=== PATIENT | male | born 1950 | race Caucasian/White ===

== ENCOUNTER → 2023-11-09 11:44 | Outpatient (REF) | payer BC, SELFPAY ==
[2023-11-09 13:06] LABS: % Basophils 0.7 % (0-2); % Eosinophils 1.2 % (0-6); % Immature Granulocytes 0.7 % (0-0.5); % Lymphocytes 15.1 % (20.5-51.1); % Monocytes 9.7 % (1.7-9.3); % Neutrophils 72.6 % (42.2-75.2); Absolute Basophils 0.1 10^3/uL (0-0.2); Absolute Eosinophils 0.1 10^3/uL (0-0.7); Absolute Immature Granulocytes 0.1 10^3/uL (0-0.05); Absolute Lymphocytes 1.1 10^3/uL (1.2-3.4); Absolute Monocytes 0.7 10^3/uL (0.1-0.6); Absolute Neutrophils 5.5 10^3/uL (1.4-6.5); Hematocrit 42.8 % (39.0-52.0); Hemoglobin 14.6 g/dL (13.0-18.0); Mean Corp Hgb Conc. 34.1 g/dL (33.0-37.0); Mean Corpuscular Hgb 31.3 pg (27.0-31.0); Mean Corpuscular Volume 91.8 fL (80.0-94.0); Mean Platelet Volume 9.6 fL (7.4-10.4); Nucleated Red Blood Cells % 0 % (-); Platelet Count 270 10^3/uL (130-400); Red Blood Cell Count 4.66 10^6/uL (4.70-6.10); Red Cell Dist. Width 14.7 % (11.5-14.5); White Blood Cell Count 7.5 10^3/uL (4.8-10.8)
[2023-11-09 13:28] LABS: NT-proBNP 3920 pg/ml
[2023-11-09 13:51] LABS: ALT (SGPT) 33 U/L (0-50); AST (SGOT) 26 U/L (17-59); Albumin 3.7 g/dl (3.5-5.0); Alkaline Phosphatase 75 U/L (38-126); Blood Urea Nitrogen 28 mg/dl (9-20); Calcium 8.8 mg/dl (8.4-10.2); Carbon Dioxide 33 mmol/L (22-30); Chloride 99 mmol/L (98-107); Glucose 93 mg/dl (70-99); Potassium 3.8 mmol/L (3.5-5.1); Sodium 139 mmol/L (135-145); Total Bilirubin 1.4 mg/dl (0.2-1.3); Total Protein 6.4 g/dl (6.3-8.2); eGFR 58.37
[2023-11-09 14:02] LABS: Vitamin D, 25-OH*** 27.8 ng/mL (30-80)
[2023-11-09 14:16] LABS: TSH 2.79 uIU/ml (0.47-4.68)
== END ==
LOC: REG 11:44
PROVIDERS: ATTENDING PHYSICIAN Nurse Practitioner Family; FAMILY PHYSICIAN Internal Medicine Geriatric Medicine
DX: R05.1 Acute cough (principal); R53.83 Other fatigue; R09.89 Other specified symptoms and signs involving the circulatory and respiratory systems; I48.0 Paroxysmal atrial fibrillation; I42.8 Other cardiomyopathies; Z98.890 Other specified postprocedural states; I10 Essential (primary) hypertension; Z87.891 Personal history of nicotine dependence; Z68.32 Body mass index [BMI] 32.0-32.9, adult; Z13.89 Encounter for screening for other disorder; F33.9 Major depressive disorder, recurrent, unspecified; Z86.73 Personal history of transient ischemic attack (TIA), and cerebral infarction without residual deficits; R97.20 Elevated prostate specific antigen [PSA]; I95.2 Hypotension due to drugs; B49 Unspecified mycosis; R94.31 Abnormal electrocardiogram [ECG] [EKG]; Z91.81 History of falling; R26.9 Unspecified abnormalities of gait and mobility; R00.0 Tachycardia, unspecified
CPT/HCPCS: 36415; 71046; 80053; 82306; 83880; 84443; 85025

== ENCOUNTER 2024-02-06 18:19 | Outpatient (RCR) | payer BC, SELFPAY | END 2024-02-06 23:59 | disposition home or self-care (01) | LOC: CRHB 18:19 | PROVIDERS: ATTENDING PHYSICIAN Internal Medicine Cardiovascular Disease; FAMILY PHYSICIAN Internal Medicine Geriatric Medicine | DX: I50.20 Unspecified systolic (congestive) heart failure (principal) | CPT/HCPCS: 93798 ==

== ENCOUNTER 2024-04-13 06:46 | Outpatient (RCR) | payer BC, SELFPAY | END 2024-04-13 23:59 | disposition home or self-care (01) | LOC: CRHB 06:46 | PROVIDERS: ATTENDING PHYSICIAN Internal Medicine Cardiovascular Disease; FAMILY PHYSICIAN Internal Medicine Geriatric Medicine | DX: I50.22 Chronic systolic (congestive) heart failure (principal) | CPT/HCPCS: 93798 ==

== ENCOUNTER 2024-04-25 11:11 | Inpatient (IN) | payer BC, MEDICARE, SELFPAY ==
[2024-04-24] VITALS (8 sets, daily range): BP systolic 125–137; BP diastolic 80–102; BMI 31.7
--- NOTE | 2024-04-24 21:14 | ED.CVA ---
History of Present Illness
General
Chief Complaint: CVA/TIA Symptoms
Source: patient and spouse
Time Seen by Provider: 04/24/24 21:07
Nursing documentation reviewed up to this point in time: agreed with
Onset of Stroke Symptoms
Onset of symptoms known: Yes
Date of onset of symptoms: 04/24/24
Time of onset of symptoms: 20:45
Time pt last seen normal is known: Yes
Date last time pt seen normal: 04/24/24
Time last time pt seen normal: 20:30
History of Present Illness
History of Present Illness:
74 yo male present to ED due to slurred speech, left facial droop 15 minutes [place] [employer]. CVA alert called by histology tech.
Past History
Past History
ED Past Medical History: Arrthythmia (afib), Cancer (thyroid), HTN, Valvular disease (MVR), Psychiatric (anxiey) and Other (TIA, OA, kidney stones)
ED Past Surgical History: Cardiac (Cardiac ablation)
Social History
Tobacco: Non-smoker
Alcohol: None
Drug: None
Personal:
Living: with family
Employment: Employed
Family History
Family History: Other (Noncontributory)
Phy Exam
Physical Exam
Physical Exam:
Physical Exam
General: no apparent distress, not acutely ill
Neck: supple. no meningeal signs. normal posterior pharynx
Heart: s1/s2 regular rate and rhythm, no murmur. equal radial
pulses.
HEENT: Pupils equal round reactive to light, EOMI
Lungs: no acute respiratory distress. clear bilaterally
Abdomen: normal bowel sounds. not tender. no CVAT
Neuro: alert and oriented. no focal neurological deficits cranial nerves II through XII intact, mild dysarthria
Skin: no rash
Psychiatric: well kept. interactive and cooperative
Extremities: no edema. no calf tenderness. negative homans. good distal pulses
Scores
NIH Stroke Score
Level of Consciousness: 0 - Alert
LOC Questions: 0-Answers both correctly
LOC Commands: 0-Performs both correctly
Best Horizontal Gaze: 0-Normal
Visual Booth: 0=Normal, no visual loss
Facial Palsy: 0=Normal, symmetrical
Motor - Right Arm: 0=No drift 10 seconds
Motor - Left Arm: 0=No drift 10 seconds
Motor - Right Le-No drift 5 seconds
Motor - Left Le-No drift 5 seconds
Limb Ataxia: 0-Absent
Sensation: 0-Normal
Best Language: 0-No aphasia
Dysarthria: 1-Mild slurring
Extinction and Inattention: 0-No abnormality
Total Score:: 1
Course
Orders/Labs/Results
Orders:
Orders
04/24/24 21:08
Electrocardiogram (*1) Urgent
Reason for Study: Other
Other Reason for Exam: Possible Stroke
Bedside Glucose- Treatment ONCE
Cardiac Monitoring- Treatment ONCE
EKG- Treatment ONCE
IV Insert/Care/Rem.- Treatment PRN
Vital Signs As Directed
Frequency: Other
Weight As Directed
Frequency: Once
Comment: ZERO STRETCHER SCALE FOR ACCURATE WEIGHT
O2 Therapy [RESP] Urgent
Titrate/Wean O2 to maintain O2 sat greater than (%): 93
Special Instructions: MAINTAIN CONTINUOUS O2 SATS > OR = 93%
04/24/24 21:09
CT Head W/o Cont STROKE ALERT Stat
Reason For Exam: cva symptoms
04/24/24 21:10
Complete Blood Count/With Diff Urgent
Comprehensive Metabolic Panel Urgent
PTT Urgent
Prothrombin Time Urgent
Troponin I Urgent
04/24/24 21:14
CT Head/Neck Ang STROKE ALERT Urgent
Comment:
Reason For Exam: slurred speech, left facial droop
04/24/24 21:55
Electrocardiogram (*1) Urgent
04/24/24 22:23
Admit/Transfer Patient As Directed
Co-Sign Provider:
Level of Care: Observation services
Assign to:: Telemetry
Physician / Group: bryon
Diagnosis: tia/cva
Reason for Telemetry: CVA/TIA
Date to Stop Telemetry: 04/27/24
Time to Stop Telemetry: 11:00
Code Status As Directed
Resuscitation Status: Full Code
PRN Pain Medication Management As Directed
May give lesser potent ordered pain med per pt: Yes
preference::
Protocol:: Medication orders for pain may be administered in a
manner that supports deferring to patient preference
when the pt is:
- Requesting an ordered lesser potent pain medication.
Least to most potent pain medications are defined
as: acetaminophen < NSAID < tramadol < opioids
(morphine, oxycodone, hydromorphone).
- Requesting a lesser dose of the same medication IF
ORDERED.
- Requesting a less intrusive route of administration
if both routes are prescribed by the provider (PO <
IV).
04/24/24 23:00
Flush (0.9% Sodium Chloride) [Flush (Nss)] See Dose Instructions IV PER PROTOCOL
04/25/24 00:00
NEUROLOGY CONSULT Routine
Consulting Provider: Portillo Delatorre
Was physician already notified: Yes
VTE Contraindication Routine
VTE Mechanical Device Contraindication: Medical Contraindication
Pharmocologic Contraindication: Medical Contraindication
Activity As Directed
Activity Level: As Tolerated
NIH Stroke Scale As Directed
Directions: Per protocol
Comment: every shift and with any change in condition or mental status
Neurological Checks As Directed
Frequency: q4h
Additional Instructions:: q4h x 24h upon admission to the floor, then qshift & with any change in condition
and mental status
Swallow Screening CVA/TIA ONLY As Directed
Comment: NPO until swallowing screening completed
If patient FAILS swallow screening:: NPO, Speech Therapy consult, Aspiration Precautions
If patient PASSES swallow screening, diet:: Regular
Above diet order entered?: Yes- passed screening
Vital Signs As Directed
Frequency: Per unit guidelines
Cpap [RESP] Routine
Patient to use own unit?: Yes
Ot Eval And Treat Routine
Pt Eval And Treat Routine
Activity Level: As Tolerated
Speech Therapy Eval & Treat Routine
04/25/24 06:00
Basic Metabolic Panel IN AM
Cardiovascular Evaluation IN AM
Complete Blood Count/No Diff IN AM
04/25/24 08:00
Amiodarone [Pacerone] 200 mg PO DAILY
Carvedilol [Coreg] 50 mg PO BID
Cholecalciferol (Vitamin D3) [VITAMIN D3 (cholecalciferol)] 50 mcg PO DAILY
Dabigatran Etexilate Mesylate [Pradaxa] 150 mg PO BID
Empagliflozin [Jardiance] 10 mg PO DAILY
Escitalopram Oxalate [Lexapro] 10 mg PO DAILY
Furosemide [Lasix] 40 mg PO BID
Zinc Sulfate 220 mg PO DAILY
ordoxscwxsy-evqylkiid-tkk C-Mn [Glucosamine Chondroitin MaxStr] 1 cap PO BID
04/27/24 11:00
DC Protocol for Telemetry ONCE
Abnormal Lab Results
04/24/24
21:10
RBC 4.62 L 10^6/uL
(4.70-6.10)
MCH 31.2 H pg
(27.0-31.0)
RDW 14.6 H %
(11.5-14.5)
Abs Immat Gran (auto) 0.1 H 10^3/uL
(0-0.05)
Absolute Monos (auto) 0.8 H 10^3/uL
(0.1-0.6)
Immature Gran % 0.6 H %
(0-0.5)
Monocytes % 9.5 H %
(1.7-9.3)
PT 18.5 H Sec
(11.4-14.6)
APTT 54.4 H Sec
(23.4-35.0)
BUN 25 H mg/dl
(9-20)
Glucose 102 H mg/dl
(70-99)
Total Bilirubin 1.5 H mg/dl
(0.2-1.3)
04/24/24 21:10
04/24/24 21:10
Vital Signs
Initial and Last Documented VS:
Initial Vital Signs
Pulse Ox
82
04/24/24 21:30
Last Documented Vital Signs
Temp Pulse Resp BP Pulse Ox
97.9 F 104 19 122/72 97
04/25/24 00:59 04/25/24 00:59 04/25/24 00:59 04/25/24 00:59 04/25/24 00:59
MDM/Problems Addressed
Differential Diagnosis Includes:
cva,tia
MDM/Problems Addressed:
74 yo male with cva, TNK, IAT not indicated
Chronic conditions affecting care: Cardiomyopathy and Arrhythmia
Acute Exacerbation and/or Progression of Chronic Illness: Cardiomyopathy and Arrhythmia
*Radiology
Radiology exam reviewed: radiology read reviewed (ct head nad, ct head and neck angio nad)
*Pulse Oximetry
Patient hypoxic: no
*EKG
Interpreted by ED Provider?: Yes
EKG Intrepretation Date: 04/24/24
EKG Intrepretation Time: 23:11
Interpretation: abnormal
Comparison EKG: changes noted
Heart Rate: 103
Rate: tachycardiac
Rhythm: ventricular paced
[place]: normal axis
Interval: normal interval
QRS Pattern: normal QRS
Ischemia: no ischemia
*Rn Social Work Interpretation
Rate: tachycardiac
Interpretation: abnormal
Heart Rate: 98
Rhythm: ventricular paced
*Critical Care Note
Total Time (30-74mins, 75-104mins- exclusive of procedures): 30
comment:
Critical care statement: A total of 30 minutes of critical care time was provided for this patient. This includes management of unstable vital signs, evaluation of the patient at bedside, reviewing the patient's pertinent medical records, discussion
with consultants, review of old EKGs and review of pertinent medical records. This time with separate from time utilized to perform the aforementioned documented procedures
Data Reviewed
Prescriptions/Medications Considered But Not Given:
iat, tnk not indicated
Patient Management
Social determinants of health affecting care: Living situation
Discussion with other providers: Hospitalist and [employer] Supervisor (neurologist)
Escalation/DeEscalation of care consider admission/obs:
admit indicated
ED Attending Note
-
Portions of this chart may have been created with voice recognition software.� Occasional wrong word or��sound alike� substitutions may have occurred due to the inherent limitations of voice recognition software.
Discharge Plan
Departure
Patient Disposition: Admit
Date of Disposition: 04/24/24
Time of Disposition: 21:53
Admit to: Telemetry
Presentation/result/management discussed w/ accepting MD/DO: Hospitalist
Patient with high blood pressure during this ER visit?: Yes
Condition: Fair
Discharge Problem:
Acute CVA (cerebrovascular accident)
Interventions
Interventions:
*Risk Screen - Suicide Last Done: 04/24/24 21:41
*General Assessment Last Done: 04/24/24 21:41
*Neglect/Abuse Screening Last Done: 04/24/24 21:41
ED- Fall Risk Assessment Last Done: 04/24/24 23:56
*ED COVID-19 Vaccine History Last Done: 04/24/24 21:41
*Nursing Disposition Last Done: 04/24/24 23:56
ED- Pulmonary Assessment Last Done: 04/24/24 21:46
ED- Neurological Assessment Last Done: 04/24/24 22:22
ED- Cardiac Assessment Last Done: 04/24/24 21:44
ED Swallowing Screen Last Done: 04/24/24 22:17
Discharge Date and Time
Discharge Date/Time: 04/24/24 23:56
[2024-04-24 21:16] LABS: % Basophils 0.5 % (0-2); % Eosinophils 1.7 % (0-6); % Immature Granulocytes 0.6 % (0-0.5); % Monocytes 9.5 % (1.7-9.3); % Neutrophils 64.7 % (42.2-75.2); Absolute Eosinophils 0.2 10^3/uL (0-0.7); Absolute Immature Granulocytes 0.1 10^3/uL (0-0.05); Absolute Monocytes 0.8 10^3/uL (0.1-0.6); Absolute Neutrophils 5.6 10^3/uL (1.4-6.5); Hematocrit 40.5 % (39.0-52.0); Hemoglobin 14.4 g/dL (13.0-18.0); Mean Corp Hgb Conc. 35.6 g/dL (33.0-37.0); Mean Corpuscular Hgb 31.2 pg (27.0-31.0); Mean Corpuscular Volume 87.7 fL (80.0-94.0); Nucleated Red Blood Cells % 0 % (-); Platelet Count 302 10^3/uL (130-400); Red Blood Cell Count 4.62 10^6/uL (4.70-6.10); Red Cell Dist. Width 14.6 % (11.5-14.5); White Blood Cell Count 8.6 10^3/uL (4.8-10.8)
[2024-04-24 21:26] LABS: INR 1.56; PT 18.5 Sec (11.4-14.6)
[2024-04-24 21:27] LABS: APTT 54.4 Sec (23.4-35.0)
[2024-04-24 21:41] LABS: Troponin I < 0.012 ng/ml
[2024-04-24 21:42] LABS: ALT (SGPT) 15 U/L (0-50); AST (SGOT) 21 U/L (17-59); Alkaline Phosphatase 73 U/L (38-126); Blood Urea Nitrogen 25 mg/dl (9-20); Calcium 9.4 mg/dl (8.4-10.2); Carbon Dioxide 25 mmol/L (22-30); Chloride 104 mmol/L (98-107); Estimated Creatinine Clearance 67 ml/min; Glucose 102 mg/dl (70-99); Potassium 3.9 mmol/L (3.5-5.1); Sodium 137 mmol/L (135-145); Total Bilirubin 1.5 mg/dl (0.2-1.3); Total Protein 6.8 g/dl (6.3-8.2); eGFR > 60.00
--- NOTE | 2024-04-24 22:28 | HPS.HSE ---
Family Physician
-
Family Physician: [employer]
Chief Complaint
-
slurred speech
History of Present Illness
74-year-old male past medical history of prior TIA 20 years ago, paroxysmal atrial fibrillation status post ablation, pacemaker, diastolic CHF, hypertension, depression, presenting with slurred speech, weakness and memory loss.
Patient states that he was driving back from work when he suddenly felt like he had slurred speech. He was able to drive home from work but thinks that he may have fallen and hit his head although no head trauma was noted by . After he came
home he went up to watch television and noted that he looked very confused, pale and both corners of his mouth were depressed. He had diffuse weakness and could not walk. No chest pain or shortness of breath or sweating or nausea or vomiting.
states that symptoms have significantly improved.
Patient does not smoke or drink alcohol anymore.
Medical History
Past Medical History
Past Medical History: Reports Other (prior TIA 20 years ago, paroxysmal atrial fibrillation status post ablation, pacemaker, diastolic CHF, hypertension, depression, )
Past Surgical History: Reports None
Social History
Tobacco: Former Smoker
Alcohol: Former
Family History
Family History: Not pertinent
Allergies / Home Medications
Allergies reflects when Allergies were last updated in [facility].
Home Medications with original date entered in [facility]
Allergy/Medication List:
Allergies
Allergy/AdvReac Type Severity Reaction Status Date / Time
spironolactone Allergy gynecomasti Verified 04/24/24 21:07
[From Aldactone] a
Home Medications
dabigatran etexilate 150 mg capsule (Pradaxa) 150 mg PO BID Blood clot prevention/tx 02/11/21
escitalopram oxalate 10 mg tablet 10 mg PO DAILY Mental Health/Anxiety 02/11/21
furosemide 40 mg tablet 40 mg PO BID Fluid retention/Swelling #0 tabs 05/22/23
fugvcryygxv-ornecqesw-cdm C-Mn 500 mg-400 mg capsule (Glucosamine Chondroitin Maximum Strength) 1 cap PO BID Supplement 06/09/23
carvedilol 25 mg tablet (Coreg) 50 mg (2 x 25 mg) PO BID Arrhythmia #120 tabs 06/10/23
candesartan 8 mg tablet 8 mg PO DAILY Blood pressure #90 tabs 08/09/23
amiodarone 200 mg tablet 200 mg PO DAILY Arrhythmia 04/24/24
cholecalciferol (vitamin D3) 50 mcg (2,000 unit) tablet 50 mcg PO DAILY 04/24/24
empagliflozin 10 mg tablet (Jardiance) 10 mg PO DAILY 04/24/24
semaglutide 0.25 mg or 0.5 mg (2 mg/3 mL) subcutaneous pen injector (Ozempic) 0.25 mg SC MO 04/24/24
zinc sulfate 50 mg zinc (220 mg) tablet 50 mg PO DAILY 04/24/24
Review of Systems
-
History Source: Patient
A 12 point ROS was completed and negative except as noted: Yes
Constitutional: Reports No Symptoms
EENT: Reports No Symptoms
Respiratory: Reports No Symptoms
Cardiac: Reports No Symptoms
Abdomen/GI: Reports No Symptoms
: Reports No Symptoms
Musculoskeletal: Reports No Symptoms
Skin: Reports No Symptoms
Neurological: Reports See HPI
Endocrine: Reports No Symptoms
Hematologic/Lymphatic: Reports No Symptoms
Psych: Reports No Symptoms
Physical Exam
Vital Signs
Vital Signs
Pulse Resp BP Pulse Ox
94 23 128/90 95
04/24/24 21:42 04/24/24 21:42 04/24/24 21:58 04/24/24 21:45
Physical Exam
General: Well Developed, Well Nourished and No Apparent Distress
HEENT: NormoCephalic, Moist mucous membranes and Atraumatic
Respiratory: Clear
Cardiac: S1/S2 and Regular Rhythm; No Murmur or Rub
GI: Soft, Non Tender, Non Distended and Normal Bowel Sounds; No Organomegaly
Rectal: Deferred by Provider
Musculoskeletal: No Clubbing, No Cyanosis and No Edema
Skin: No Rash
Neuro: Nonfocal/grossly intact
Laboratory Results
-
04/24/24 21:10
04/24/24 21:10
Laboratory Results
PT 18.5 Sec (11.4-14.6) H 04/24/24 21:10
INR 1.56 04/24/24 21:10
APTT 54.4 Sec (23.4-35.0) H 04/24/24 21:10
Total Bilirubin 1.5 mg/dl (0.2-1.3) H 04/24/24 21:10
AST 21 U/L (17-59) 04/24/24 21:10
ALT 15 U/L (0-50) 04/24/24 21:10
Alkaline Phosphatase 73 U/L (38-126) 04/24/24 21:10
Troponin I < 0.012 ng/ml 04/24/24 21:10
Data Reviewed
-
Lab Data: Labs Reviewed by me
Old Records: Reviewed
Impression/Plan
-
IMPRESSION:
PLAN:
# Slurred speech/memory loss/weakness likely secondary to TIA/CVA
-No neurological deficits apart from slight slurred speech
-CT head no acute abnormality
-CTA head and neck shows no significant findings
-Neurochecks/NIH checks
-Neurology recommend continue Pradaxa and to decide on MRI in the morning
-Check speech and swallow
-PT/OT
-Permissive hypertension up to 220
-hold candesartan
Paroxysmal atrial fibrillation status post ablation/pacemaker
-Continue amiodarone
-Continue Pradaxa
Chronic HFpEF
-Continue Jardiance
-Continue Coreg
-Continue Lasix
Obstructive sleep apnea
-Continue CPAP
Essential hypertension
-Hold candesartan
Depression
-Continue Lexapro
Full code
DVT prophylaxis�Pradaxa
Regular diet
--- NOTE | 2024-04-24 23:59 | PTCARENOTE ---
Pt received from ED to [facility]-2. pt oriented to room and call rucker.
[2024-04-25] VITALS (9 sets, daily range): BP systolic 114–131; BP diastolic 65–96; PULSE 73–80; O2SAT 95; BMI 31.7; BMI 31.6; BMI 31.5
[2024-04-25 09:14] LABS: Hematocrit 40.8 % (39.0-52.0); Hemoglobin 14.1 g/dL (13.0-18.0); Mean Corp Hgb Conc. 34.6 g/dL (33.0-37.0); Mean Corpuscular Hgb 30.9 pg (27.0-31.0); Mean Corpuscular Volume 89.5 fL (80.0-94.0); Mean Platelet Volume 9.5 fL (7.4-10.4); Platelet Count 279 10^3/uL (130-400); Red Blood Cell Count 4.56 10^6/uL (4.70-6.10); Red Cell Dist. Width 14.6 % (11.5-14.5); White Blood Cell Count 6.9 10^3/uL (4.8-10.8)
[2024-04-25 09:34] LABS: Glycohemoglobin (HgbA1c) 5.3 % (4.0-5.6)
[2024-04-25] MEDS: PACERONE 100 MG PO (09:55)
[2024-04-25] MEDS: COREG 50 MG PO ×2 (09:56→20:41)
[2024-04-25] MEDS: ZINC SULFATE 220 MG PO (09:56)
[2024-04-25] MEDS: LEXAPRO 20 MG PO (09:56)
[2024-04-25] MEDS: VITAMIN D3 (cholecalciferol) 50 MCG PO (09:56)
[2024-04-25] MEDS: JARDIANCE 10 MG PO (09:57)
[2024-04-25] MEDS: PRADAXA 150 MG PO ×2 (09:57→20:41)
[2024-04-25] MEDS: LASIX 40 MG PO ×2 (09:57→20:41)
--- NOTE | 2024-04-25 10:07 | CON.NEURO4 ---
Consultation - Neurology 4
-
CONSULTING PHYSICIAN: Portillo Delatorre
REFERRING PHYSICIAN: Hospitalist
DICTATED BY: Portillo Delatorre
DATE/TIME OF REQUEST: 04/25/2024
DATE/TIME OF CONSULTATION: 04/25/2024 1000
Reason for Consultation: Left facial numbness
History of Present Illness:
This is a 74 year old (eft handed (male/female) who has presented to the hospital with (chief complaint) of ataxia left sided numbness. he gives a h/o TIA( 20 years ago), paroxysmal atrial fibrillation status post ablation, pacemaker, diastolic
CHF, hypertension, depression, presenting with slurred speech, weakness and memory loss.
Patient states that he was driving back from work when he suddenly had an odd sensation across his face mouth and tongue with slurred speech. He was able to drive home from work but thinks that he may have tripped and fallen and hit his head
although no obvious sign of head trauma.
After he came home he went up to watch television and noted that he looked confused, pale with left facial weakness. He had generalized weakness with difficulty maintaining his balance and could not walk. No chest pain or shortness of breath
or sweating or nausea or vomiting.
states that symptoms have significantly improved at the ER
Patient stopped smoking anymore.
Past Medical History: Atrial fibrillation
Surgical History: Atrial appendage
Family History: [place]
Social History: Quit smoking
Allergies: Spironolactone
Home Medications: Pradaxa 150mg BID
Review of Symptoms:
Patient denies any fever, headache, chest pain, shortness of breath, GI or symptoms.
�Per the HPI.�All systems are reviewed negative except above.
Vital Signs:
The patient has a Temp 36.4 C Pulse 82 Resp 18 BP122/82 Pulse Ox 99
Physical Exam:
The patient is afebrile, heart sounds S1 and S2 are irregular, and chest is clear to auscultation bilaterally.
- If not clear, describe.
NIH Stroke Scale (if applicable):
I performed the NIH stroke scale on the patient on (date & time). The patient scored ( 4 ) points on the NIH stroke scale assessment:
Neurologic Examination:
The patient is awake, alert and oriented x 3. He is able to follow commands and answer questions appropriately. There is no aphasia. Mild dysarthria. On cranial nerve assessment, pupils are 3 mm bilateral, round and reactive to light and
accommodation. Visual gonzalez are full. Extraocular movements are intact. Facial sensations are intact and bilaterally symmetrical. There is facial asymmetry(L). Hearing is intact bilaterally to normal conversation volume. Tongue palate and uvula
are midline. Sternocleidomastoid strengths are full bilaterally.
Motor strengths are 5/5 Right upper and lower extremities on [employer] [place] scale. There is LEFT drift. No involuntary movement noted. Deep tendon reflexes are + bilateral upper and lower extremities and Babinski is absent bilaterally.
Sensations of pain, touch, temperature and vibration are impaired(L). There was no extinction noted on double simultaneous stimulation. Coordination is dysmetric by finger to nose (L).
Rombergs +. Gait unsteady
Lab Results: Addendum
Neuro Imaging: CT head: NPH: Ventriculomegaly Small vessel dz. Cortical atrophy
Impression:
Mr. MACRINA VOSS is a 74 year old M who has presented to the hospital with (symptoms/chief complaint of new onset ataxia slurred speech and left facial numbness
Differentials for the patient's presentation include:
1. Brainstem ischemia/ Vertebro basilar insufficiency
2. NPH
Patient has the following risk factors for their symptoms: Atrial fibrillation
Not IV Tenecteplase/IAT candidacy: Pradaxa
Recommendations:
1. MRI brain
2. Speech therapy
3. Pradaxa 150mg BID
4. PT/OT
5. Strict BP control
6. Statin
Given risks of GI bleed and ICH, will not add aspirin or Plavix
Discussed patient care with: Hospitalist
Vital Signs and Labs
-
Vital Signs and Labs:
Vital Signs
Temp Pulse Resp BP Pulse Ox
36.4 C 82 18 122/82 99
04/25/24 07:50 04/25/24 07:50 04/25/24 07:50 04/25/24 07:50 04/25/24 07:50
Lab Results
04/25/24 08:33
PT 18.5 Sec (11.4-14.6) H 04/24/24 21:10
INR 1.56 04/24/24 21:10
APTT 54.4 Sec (23.4-35.0) H 04/24/24 21:10
Sodium 137 mmol/L (135-145) 04/24/24 21:10
Potassium 3.9 mmol/L (3.5-5.1) 04/24/24 21:10
BUN 25 mg/dl (9-20) H 04/24/24 21:10
Glucose 102 mg/dl (70-99) H 04/24/24 21:10
Calcium 9.4 mg/dl (8.4-10.2) 04/24/24 21:10
Medications
-
Active Medications
Generic Name Dose Route Start Last Admin
Trade Name Freq PRN Reason Stop Dose Admin
Amiodarone HCl 100 mg 04/25/24 08:00
Amiodarone 100 Mg Tablet PO 05/23/24 07:59
DAILY KAYLENE
Carvedilol 50 mg 04/25/24 08:00
Carvedilol 25 Mg Tablet PO 05/23/24 07:59
BID KAYLENE
Cholecalciferol 50 mcg 04/25/24 08:00
Cholecalciferol (Vitamin D3) 50 Mcg Tablet (2,000 Units) PO 05/23/24 07:59
DAILY KAYLENE
Dabigatran 150 mg 04/25/24 08:00
Dabigatran Etexilate (Pradaxa) 150 Mg Capsule PO 05/23/24 07:59
BID KAYLENE
Empagliflozin 10 mg 04/25/24 08:00
Empagliflozin (Jardiance) 10 Mg Tablet PO 05/23/24 07:59
DAILY KAYLENE
Escitalopram Oxalate 20 mg 04/25/24 08:00
Escitalopram 20 Mg Tablet PO 05/23/24 07:59
DAILY KAYLENE
Furosemide 40 mg 04/25/24 08:00
Furosemide 40 Mg Tablet PO 05/23/24 07:59
BID KAYLENE
Sodium Chloride 0 flush 04/24/24 23:00
Sodium Chloride 0.9% (Flush) Syringe IV 05/22/24 22:59
PER PROTOCOL KAYLENE
Zinc Sulfate 220 mg 04/25/24 08:00
Zinc Sulfate 220 Mg Capsule PO 05/23/24 07:59
DAILY KAYLENE
Home Medications
�Medication �Instructions �Recorded
dabigatran etexilate 150 mg 150 mg PO BID Blood clot 02/11/21
capsule (Pradaxa) prevention/tx
furosemide 40 mg tablet 40 mg PO BID Fluid 05/22/23
retention/Swelling #0 tabs
jzuwsztbkkm-jxjsdmkwe-bkf C-Mn 500 1 cap PO BID Supplement 06/09/23
mg-400 mg capsule (Glucosamine
Chondroitin Maximum Strength)
carvedilol 25 mg tablet (Coreg) 50 mg (2 x 25 mg) PO BID 06/10/23
Arrhythmia #120 tabs
candesartan 8 mg tablet 8 mg PO DAILY Blood pressure #90 08/09/23
tabs
cholecalciferol (vitamin D3) 50 50 mcg PO DAILY Supplement 04/24/24
mcg (2,000 unit) tablet
empagliflozin 10 mg tablet 10 mg PO DAILY DIABETES 04/24/24
(Jardiance)
semaglutide 0.25 mg or 0.5 mg (2 0.25 mg SC MO diabetes 04/24/24
mg/3 mL) subcutaneous pen injector
(Ozempic)
zinc sulfate 50 mg zinc (220 mg) 50 mg PO DAILY Supplement 04/24/24
tablet
amiodarone 100 mg tablet 100 mg PO DAILY Arrhythmia 04/25/24
escitalopram oxalate 20 mg tablet 20 mg PO DAILY depression/anxiety 04/25/24
Allergies
-
Allergies
Allergy/AdvReac Type Severity Reaction Status Date / Time
spironolactone Allergy gynecomasti Verified 04/24/24 21:07
[From Aldactone] a
[2024-04-25 10:18] LABS: Blood Urea Nitrogen 21 mg/dl (9-20); Calcium 9.3 mg/dl (8.4-10.2); Carbon Dioxide 29 mmol/L (22-30); Chloride 102 mmol/L (98-107); Estimated Creatinine Clearance 80 ml/min; Glucose 110 mg/dl (70-99); HDL Cholesterol 38 mg/dl; LDL Cholesterol, Calculated 110 mg/dl; Potassium 3.6 mmol/L (3.5-5.1); Sodium 138 mmol/L (135-145); Total Cholesterol 161 mg/dl (50-199); Triglyceride 67 mg/dl (10-149); Very Low Density Lipoprotein 13 mg/dl (0-30); eGFR > 60.00
[2024-04-25 10:21] LABS: Ferritin 36.8 ng/ml (17.9-464.0)
[2024-04-25 10:53] LABS: Folate 8.2 ng/ml (2.76-20); Vitamin B12 340 pg/ml (239-931)
--- NOTE | 2024-04-25 11:58 | W.PN.HOSP.TC ---
Today's Communication/Plan
-
Acute CVA workup and treatment.
Assessment / Plan
Assessment / Plan
Impression:
74 years old male with A-fib on anticoagulation with Pradaxa presented with acute onset of aphasia/slurred speech, ataxia, left facial paresthesia. Episode self-limited.
Currently neurologically stable with all symptoms resolved per
Concern for acute posterior/brainstem CVA/TIA.
Conditions prior to admission:
Nonischemic cardiomyopathy with LVEF of 30 to 35% per
Status post BiV ICD implant 06/11.
Paroxysmal atrial fibrillation with history of ablation/cardioversion
Anticoagulation with Pradaxa.
Prior history of CVA. Plan essential hypertension baseline anxiety.
Obstructive sleep apnea on CPAP
History of thyroid carcinoma status post partial thyroidectomy.
Plan:
Concern for posterior/brainstem CVA
Neurologically intact with all symptoms resolved.
CT scan of the head on admission with no acute abnormalities.
Neurology consultation, input appreciated
MRI/MRA of the brain and [facility] pending pacemaker clearance.
Update echocardiogram
Update lipid profile
Cardiology consultation.
Continue Pradaxa
Orthostatic vitals been
Physical therapy assessment
Speech and swallow evaluation
Cardiovascular
Nonischemic cardiomyopathy with chronic CHF reduced EF
Appears to be volume compensated.
Update echocardiogram
Continue Lasix 40 mg p.o. twice daily, continue Coreg, Jardiance, candesartan
Paroxysmal atrial fibrillation
Continue amiodarone, Coreg
Anticoagulation with Pradaxa.
Anticipated Discharge: 24 - 48 hours
Subjective/Interval History
-
Date of Service: April 25, 2024
Objective Data
-
Labs:
Laboratory Results
04/25/24
08:33
WBC 6.9
Hgb 14.1
Hct 40.8
Plt Count 279
Sodium 138
Potassium 3.6
Chloride 102
Carbon Dioxide 29
BUN 21 H
Creatinine 1.0
Glucose 110 H
Calcium 9.3
Vital Signs:
Vital Signs
Temp Pulse Resp BP Pulse Ox
97.3 F 82 18 126/83 92
04/25/24 11:06 04/25/24 11:06 04/25/24 11:06 04/25/24 11:06 04/25/24 11:06
I&O
04/24/24 04/25/24 04/26/24
06:59 06:59 06:59
Intake Total 480 / 480
Output Total 450 / 450
Balance 30 / 30
Physical Exam
-
General: Well Developed, Well Nourished and No Apparent Distress
HEENT: Normocephalic and Atraumatic; Negative Oxygen
Respiratory: Clear to Auscultation; Negative Wheezes or Rhonchi
Cardiac: Regular Rhythm and S1/S2; Negative Murmur
GI: Soft, Nontender, Nondistended and Normal Bowel Sounds
Musculoskeletal: No Clubbing, No Cyanosis and No Edema
Neuro: Awake, Alert, Oriented, AO x 3 and Nonfocal/Grossly Intact
Psych: Calm
--- NOTE | 2024-04-25 12:49 | CON.CAR ---
Addendum entered and electronically signed by Cali Pan DO 04/25/24 15:45:
I saw and examined the patient.
The Architectural Inspector's note was reviewed and I agree with the note.
Comment:
Plan:
Continue neuro workup and evaluation. MRI of the head pending.
Anticoagulation for history of persistent atrial fibrillation. Defer to neurology whether or not Pradaxa needs to be changed to an alternative anticoagulant. The patient currently would prefer to continue Pradaxa.
Head CT and CTA of the head and neck without significant abnormalities. No significant carotid disease. Symptoms have largely
Device is MRI compatible
He remains on low-dose amiodarone for rate control. History of multiple PVI's and convergent maze including left atrial appendage clipping, BiV ICD.
Discussed with nursing.
Original Note:
Consultation
Consultation Request
Date/Time Consultation Performed: 04/25/24
Requesting Provider: Dr. Aquino
Performing Provider: Hailey Salazar PA-C for Dr. Pan
Reason for Consultation: CVA
Medical History
-
Chief Complaint: slurred speech
History of Present Illness:
Patient is a 73-year-old male with past medical history significant for chronic heart failure with reduced ejection fraction, cardiomyopathy, persistent atrial fibrillation with multiple PVI's including convergent maze procedure, left atrial
appendage clipping, BiV ICD, chronic anticoagulation maintained on Pradaxa, stroke, hypertension, anxiety/depression, sleep apnea who presented to due to CVA symptoms. He had noted slurred speech upon driving home from work yesterday. He states
once at home he felt very generally weak. Around 9PM last night his came and told him 'let's go up to bed' however she noted patient had B/L facial droop with corners of his mouth both down turned, was pale, disoriented, and his 'eyes looked
lost.' He was brought to and is being ruled out for CVA. Head CT negative for acute abnormalities. He reports he has been compliant with pradaxa. He is in afib, only occasionally feeling 'fluttering'.
PMH:
Chronic systolic HFrEF, 30-35%
s/p Medtronic Bi-V ICD 06/09/23
Persistent AFib
multiple prior PVIs (2010, 2012, 2018, 2020)
Convergent Maze procedure w/LINNETTE clip (04/2021)
s/p CV 10/2022, 07/15/2023
Failed tikosyn (unable to maintain sinus rhythm)
Chronic OAC with Pradaxa
History of CVA
HTN
Anxiety
VERNON
Thyroid CA, s/p partial thyroidectomy
Past Medical History
Past Medical History: Other (See HPI)
Past Surgical History: Cardiac (Multiple PVIs with convergent Maze via subxiphoid approach 04/2021, multiple CV, BiVICD 05/2023, LA appendage occlusion with 50mm Box Atriclip device 04/21/21) and Other (s/p partial thyroidectomy)
Social History
Tobacco: Former Smoker
Alcohol: None
Personal:
Living: With Family
Employment: Employed
Family History
Family History: CAD, Hypertension and Other (Afib)
Allergies / Home Medications
Allergy/AdvReac Type Severity Reaction Status Date / Time
spironolactone Allergy gynecomasti Verified 04/24/24 21:07
[From Aldactone] a
�Medication �Instructions �Recorded �Confirmed �Type
dabigatran etexilate 150 mg 150 mg PO BID Blood clot 02/11/21 04/25/24 History
capsule (Pradaxa) prevention/tx
furosemide 40 mg tablet 40 mg PO BID Fluid 05/22/23 04/25/24 Rx
retention/Swelling #0 tabs
uionnymffly-ybokzciks-hrf C-Mn 500 1 cap PO BID Supplement 06/09/23 04/25/24 History
mg-400 mg capsule (Glucosamine
Chondroitin Maximum Strength)
carvedilol 25 mg tablet (Coreg) 50 mg (2 x 25 mg) PO BID 06/10/23 04/25/24 Rx
Arrhythmia #120 tabs
candesartan 8 mg tablet 8 mg PO DAILY Blood pressure #90 08/09/23 04/25/24 Rx
tabs
cholecalciferol (vitamin D3) 50 50 mcg PO DAILY Supplement 04/24/24 04/25/24 History
mcg (2,000 unit) tablet
empagliflozin 10 mg tablet 10 mg PO DAILY DIABETES 04/24/24 04/25/24 History
(Jardiance)
semaglutide 0.25 mg or 0.5 mg (2 0.25 mg SC MO diabetes 04/24/24 04/25/24 History
mg/3 mL) subcutaneous pen injector
(Ozempic)
zinc sulfate 50 mg zinc (220 mg) 50 mg PO DAILY Supplement 04/24/24 04/25/24 History
tablet
amiodarone 100 mg tablet 100 mg PO DAILY Arrhythmia 04/25/24 04/25/24 History
escitalopram oxalate 20 mg tablet 20 mg PO DAILY depression/anxiety 04/25/24 04/25/24 History
Review of Systems
-
History Source: Patient and Family
All other systems: Negative unless noted
Physical Exam
Vital Signs
Temp Pulse Resp BP Pulse Ox
97.3 F 82 18 126/83 92
04/25/24 11:06 04/25/24 11:06 04/25/24 11:06 04/25/24 11:06 04/25/24 11:06
Lab Results
04/25/24 08:33
04/25/24 08:33
Troponin I < 0.012 ng/ml 04/24/24 21:10
Physical Exam
General: No Apparent Distress and Comfortable
HEENT: Normocephalic, Anicteric and Moist Mucous Membranes
Respiratory: Clear and Non Labored Respirations
Cardiac: S1/S2 and Irregular Rhythm
Musculoskeletal: No Clubbing, No Cyanosis, No Edema and Other (varicose veins B/L )
Skin: Warm and Dry
Neuro: AO x 3
Impression / Plan
-
PCP: Leonides Cleaning MD
CDY: Juan Ramon Owens MD
IMPRESSION:
Presentation with slurred speech, weakness, confusion
Concern for acute TIA/CVA
Non ischemic cardiomyopathy
Chronic systolic HFrEF, 30-35%
s/p Medtronic Bi-V 06/09/23
Persistent AFib
multiple prior PVIs (2010, 2012, 2018, 2020)
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
s/p CV 10/2022, 07/15/2023
Failed tikosyn (unable to maintain sinus rhythm)
Chronic OAC with Pradaxa
History of CVA
HTN
Anxiety
VERNON
Thyroid CA, s/p partial thyroidectomy
Echo 08/09/2023: EF 30 to 35%, global hypokinesis, ICD wire in RV, normal pericardium
Echo 05/20/2023: moderately reduced LV systolic function with ejection fraction 30 to 35%.� Mild concentric LV.� Normal RV size.� Biatrial dilatation with severely enlarged left atrium and severely abnormal left atrial volume index.� Mild MR,
pulmonary artery pressure 55 mmHg
Plan:
-Patient presents with symptoms concerning for acute TIA/CVA
-Head CT negative for acute abnormalities
-CT of head and neck without evidence of significant ICA stenosis
-fortunately his symptoms have largely resolved
-For brain MRI. Device MRI compatible
-Check echo, last from 07/2023 as above
-From cardiac standpoint, unlikely to have cardioembolic stroke related to A-fib given prior left atrial appendage clip in 2020, as well as on chronic Pradaxa therapy and patient reports compliance
-He is in vpaced rhythm with underlying persistent atrial fibrillation. He has had multiple ablations including convergent procedure and was previously on Tikosyn and amiodarone with recurrence of A-fib. He remains on low-dose amiodarone for rate
control. He is being considered for AVJ ablation
-Will need to assess for alternative causes of TIA/CVA, await MRI results
-for now, continue pradaxa
-d/w patient and at bedside
Data Reviewed
-
EKG: Tracing Personally Visualized and interpreted
CT Scan: Report Reviewed by me
Medical Tests (Nuc Med, Echo etc): Report Reviewed by me
Labs: Labs Reviewed by me
Old Records: Reviewed
--- NOTE | 2024-04-25 14:50 | CM ---
construction safety manager reviewed patient's chart and met with patient and patient resides in a 2 story home patient is independent with adl's and ambulation, patient does not use an assisted device, recommendation is for skilled placement, spoke with patient
and left message for patient's spouse regarding skilled options.
Plan; Skilled placement.
[2024-04-25] MEDS: TYLENOL 650 MG PO (17:41)
[2024-04-26 03:40] VITALS: BP 124/92
[2024-04-26 06:00] VITALS: BMI 31.3
[2024-04-26 07:45] VITALS: BP 114/78
[2024-04-26] MEDS: PRADAXA 150 MG PO (08:36)
[2024-04-26] MEDS: JARDIANCE 10 MG PO (08:37)
[2024-04-26] MEDS: LEXAPRO 20 MG PO (08:37)
[2024-04-26] MEDS: ZINC SULFATE 220 MG PO (08:37)
[2024-04-26] MEDS: LASIX 40 MG PO (08:37)
[2024-04-26] MEDS: PACERONE 100 MG PO (08:37)
[2024-04-26] MEDS: VITAMIN D3 (cholecalciferol) 50 MCG PO (08:37)
[2024-04-26] MEDS: COREG 50 MG PO (08:37)
--- NOTE | 2024-04-26 10:18 | CM ---
Patient was OBS and switched to inpatient. manager emergency department reviewed patient's chart and patient resides with his spouse in a 2 story home, patient is independent with adl's and ambulation, no assisted device. Patient is working and drives.
Plan; Home with spouse and outpatient PT.
--- NOTE | 2024-04-26 11:18 | W.PN.NEURO.1 ---
Today's Communication / Plan
-
Pat may go home on current medications
Neuro Assessment/Plan
Assessment
74 yr. old male with h/o chronic atrial fibrillation on Pradaxa who had new onset slurred speech generalized weakness facial Numbness(L) secondary to lacunar infarction Left Medulla.
Plan
Continue Pradaxa 150mg BID. Strict BP control. PT/OT. May go home..
Subjective/Objective
Subjective Data
Date of Service: April 26, 2024 1100
Pat is better. Symptoms resolved. No facial numbness or weakness. No difficulty speech or swallowing. Able to sit stand and walk without issues. Independent in all ADLs
Objective Data
Vital Signs
Temp Pulse Resp BP Pulse Ox
36.2 C 85 18 114/78 98
04/26/24 07:45 04/26/24 08:37 04/26/24 07:45 04/26/24 08:37 04/26/24 07:45
Lab Results
04/25/24 08:33
04/25/24 08:33
PT 18.5 Sec (11.4-14.6) H 04/24/24 21:10
INR 1.56 04/24/24 21:10
APTT 54.4 Sec (23.4-35.0) H 04/24/24 21:10
Sodium 138 mmol/L (135-145) 04/25/24 08:33
Potassium 3.6 mmol/L (3.5-5.1) 04/25/24 08:33
BUN 21 mg/dl (9-20) H 04/25/24 08:33
Glucose 110 mg/dl (70-99) H 04/25/24 08:33
Calcium 9.3 mg/dl (8.4-10.2) 04/25/24 08:33
LDL Cholesterol, Calc 110 mg/dl 04/25/24 08:33
Vitamin B12 340 pg/ml (239-931) 04/25/24 21:10
Patient Allergies
spironolactone [From Aldactone] Allergy (Verified 04/24/24 21:07)
gynecomastia
Physical Exam
-
General: Well Developed, Well Nourished, No Apparent Distress and Comfortable
Eyes: Able to visualize OU and Unremarkable
HEENT: Normocephalic, Atraumatic, Anicteric and Moist Mucous Membranes
Neck: No Bruits Bilaterally and Full Range of Motion
Respiratory: Clear to Auscultation
Cardiac: Regular Rhythm and No Murmur
GI: Normal Bowel Sounds and Soft
Skin: Unremarkable
Extremities: No Clubbing
Psych: Unremarkable
Extended Neurological Exam
Mood & Affect: Mood Unremarkable and Affect Unremarkable
Attention Span & Concentration: Awake, Alert, Interactive and No Difficulty with 2 Step Request
Memory: Unremarkable and Able to Recall
Tremor: Hand Tremor Absent and Head Tremor Absent
Involuntary Movement: None
Speech: Quality Unremarkable, Quantity Unremarkable and Rate of Production Unremarkable
Cranial Nerve II: Left Eye: Pupillary Reactivity Unremarkable, Pupillary Size Unremarkable and Visual Booth Grossly Intact
Cranial Nerve II: Right Eye: Pupillary Reactivity Unremarkable, Pupillary Size Unremarkable and Visual Booth Grossly Intact
Cranial Nerves III, IV, : Extraocular Movement: Extraocular Movement Full in all Directions
Cranial Nerve V: Facial Sensation: Facial Sensation Unremarkable to Cold, Intact to Pin Prick and Intact to Light Touch
Cranial Nerve VII: Facial Symmetry: Normal Facial Symmetry
Cranial Nerve VIII: Hearing: Unremarkable Hearing to Normal Conversational Volume
Cranial Nerves IX, X: Palate Movement: Palate Elevation Symmetric
Cranial Nerve XI: Shoulder Shrug: Unremarkable
Cranial Nerve XII: Tongue Protusion: Midline
Muscle Strength, Overall: Full Throughout
Muscle Bulk & Tone: Bulk Unremarkable and Tone Unremarkable
Pronator Drift: No Drift in Upper Extremities and No Drift in Lower Extremities
Deep Tendon Reflexes: Unremarkable Throughout
Cold Sensation: Unremarkable
Vibration Sensation: Unremarkable
Touch Sensation: Unremarkable
Coordination: Friwqo-gemj-apahpy Testing Unremarkable, Reaches for Objects without Difficulty and SAMUEL Unremarkable
Babinski Sign: Absent Bilaterally
Gait & Station: Unremarkable Arm Swing and Up from Seated Without Problem
Modified Hanson Score (MRS)
-
Modified Jatin Scale (mRS): No significant disability. Able to carry out usual activities.
Score: 1
Data Reviewed
-
MRI Head: Report Reviewed (Minute lacunar infarct of the dorsal aspect of the medulla(L)) and Image Reviewed
--- NOTE | 2024-04-26 11:31 | W.PN.HOSP.TC ---
Addendum entered and electronically signed by Rebekah Alaniz MD 04/26/24 17:19:
afib is persistent as per cardiology
Original Note:
Today's Communication/Plan
-
d/c
Assessment / Plan
Assessment / Plan
Impression:
74 years old male with A-fib on anticoagulation with Pradaxa presented with acute onset of aphasia/slurred speech, ataxia, left facial paresthesia. Episode self-limited.
Currently neurologically stable with all symptoms resolved per
Concern for acute posterior/brainstem CVA/TIA.
Conditions prior to admission:
Nonischemic cardiomyopathy with LVEF of 30 to 35% per
Status post BiV ICD implant 06/11.
Paroxysmal atrial fibrillation with history of ablation/cardioversion
Anticoagulation with Pradaxa.
Prior history of CVA. Plan essential hypertension baseline anxiety.
Obstructive sleep apnea on CPAP
History of thyroid carcinoma status post partial thyroidectomy.
Plan:
Concern for posterior/brainstem CVA--confirmed by MRI--apprec neuro--cont Pradaxa and defer asa/plavix
Neurologically intact with all symptoms resolved.
CT scan of the head on admission with no acute abnormalities.
Neurology consultation, input appreciated
MRI/MRA of the brain and [place] pending pacemaker clearance.
Update echocardiogram--decreased EF 20-25% as only change
Update lipid profile
Cardiology consultation.
Continue Pradaxa
Orthostatic vitals been
Physical therapy assessment
Speech and swallow evaluation
Cardiovascular
Nonischemic cardiomyopathy with chronic CHF reduced EF
Appears to be volume compensated.
Update echocardiogram
Continue Lasix 40 mg p.o. twice daily, continue Coreg, Jardiance, candesartan
Paroxysmal atrial fibrillation
Continue amiodarone, Coreg
Anticoagulation with Pradaxa.
Anticipated Discharge: Today
Subjective/Interval History
-
Date of Service: April 26, 2024
pt ready for d/c
Objective Data
-
Vital Signs:
max temp for 24 hours
04/25/24
23:05
Temp 98.4 F
Vital Signs
Temp Pulse Resp BP Pulse Ox
97.1 F 85 18 114/78 98
04/26/24 07:45 04/26/24 08:37 04/26/24 07:45 04/26/24 08:37 04/26/24 07:45
I&O
04/25/24 04/26/24 04/27/24
06:59 06:59 06:59
Intake Total 1380 / 1380
Output Total 1100 / 1100
Balance 280 / 280
Review of Systems
-
All other systems: Reviewed and negative
Physical Exam
-
General: Well Developed, Well Nourished and No Apparent Distress
HEENT: Normocephalic and Atraumatic
Respiratory: Clear to Auscultation; Negative Wheezes or Rhonchi
Cardiac: Regular Rhythm and S1/S2; Negative Murmur
GI: Soft, Nontender, Nondistended and Normal Bowel Sounds
Musculoskeletal: No Clubbing, No Cyanosis and No Edema
Skin: Warm
Neuro: Awake
[2024-04-26] MEDS: CYANOCOBALAMIN 1000 MCG IM (13:21)
[2024-04-26 14:58] VITALS: BP 115/79; BP 121/83; PULSE 75; PULSE 80
--- NOTE | 2024-04-26 15:15 | W.DCSUMMARY ---
Addendum entered and electronically signed by Rebekah Alaniz MD 04/26/24 17:19:
afib is persistent as per cardiology
Original Note:
Discharge Summary
Discharge Data
Date of Admission: 04/25/24
Date of Discharge: 04/26/24
-
Pending Results: No
Hospital Course
Primary care physician : German Cleaning
Principal Discharge diagnosis : Posterior brainstem stroke
Chronic Discharge diagnosis : Nonischemic cardiomyopathy with chronic congestive heart failure and reduced ejection fraction, paroxysmal atrial fibrillation, obstructive sleep apnea on CPAP, history of thyroid carcinoma status post partial
thyroidectomy
Hospital Course : Patient was a 74-year-old male with a prior history of transient ischemic attack 20 years prior who was driving back from work when he suddenly felt like he had slurred speech. He was able to drive home but thinks he may have
fallen and hit his head. No trauma was noted by his . He then went to watch television and his noted that he was confused, pale, and both corners of his mouth were downturned. He had weakness and could not walk. Symptoms improved by the
time the admitting doctor arrived. Patient was admitted.
Problem #1: Posterior brainstem stroke. Patient was seen and consultation by neurology. Initial CAT scan of the head was negative. MRI of the brain was obtained which showed tiny 1.5 mm infarct in the anterior left paramidline margin of the
medulla. Head MRA showed no acute hemodynamically significant stenosis. Head and neck CTA also was without any acute issues. Incidental finding of left thyroid nodule was discovered. This should be followed up as an outpatient. Patient was
continued on Pradaxa and due to the risk of bleeding both aspirin and Plavix were not started. Prescription was provided for outpatient PT and OT. Lipid panel was checked which showed triglycerides 67, total cholesterol 161, LDL 110, HDL 38,
vitamin B12 340, folate and TSH were within normal limits. Given his stroke AND LDL of 110, would start pt on low dose statin therapy. I called the patient and he told me that neurology said it wasn't a clot or infarct so he would not need it. I
asked him to discuss with his primary care doctor.
Problem #2: All of the medical issues. These include Nonischemic cardiomyopathy with chronic congestive heart failure and reduced ejection fraction, paroxysmal atrial fibrillation, obstructive sleep apnea on CPAP, history of thyroid carcinoma
status post partial thyroidectomy. These medical issues were stable during his hospitalization. Medications were continued as able. ECHO showed reduced EF--change from 07/2023 35% to 20-25%.
Pt is stable for discharge with outpatient follow up. If there are any questions or concerns regarding his discharge summary or hospital course, please don't hesitate to call. Our office number is [phone].
Time for discharge 38 minutes.
Important imaging findings :
BRAIN MRI IMPRESSION:
Artifact versus tiny 1.5 mm infarct at the anterior left paramidline margin of the medulla.
Possible tiny subacute infarct in the right parietal cortical white matter.
No evidence of acute large vascular territory transcortical infarct at this time.
Chronic microvascular white matter ischemic disease.
Tiny chronic right thalamic lacunar infarct.
Moderate ventriculomegaly, slightly out of portion to cerebral sulcal prominence, likely reflecting an element of central greater than cortical atrophy. Normal pressure hydrocephalus may also be considered in the proper clinical context.
HEAD AND NECK CTA IMPRESSION:
No findings to suggest hemodynamically significant stenosis of the internal carotid arteries bilaterally.
No findings to suggest internal carotid artery or gross findings to suggest vertebral artery dissection bilaterally.
No significant proximal intracranial arterial stenosis bilaterally.
Grossly unremarkable right lobe of thyroid. Left lobe of thyroid nodule discretely visualized.
Possible small upper right anterior chest lipoma.
Discharge Plan
-
Patient Disposition: Home (Routine Discharge)
Discharge Diagnosis/Procedures: Posterior/brainstem stroke, nonischemic cardiomyopathy with chronic congestive heart failure and reduced ejection fraction, paroxysmal atrial fibrillation, obstructive sleep apnea on CPAP, history of thyroid carcinoma
status post partial thyroidectomy
Condition: Good
Diet: As tolerated
Activity: As tolerated
Driving Restrictions: Not until seen by your Dr
Bathing Restrictions: None
Instructions: Stroke
Referrals:
German Cleaning MD [Family Provider] - in less than 1 week
Prescriptions:
New
escitalopram oxalate 20 mg Tablet
20 mg PO DAILY Qty: 0 0RF
Continued
dabigatran etexilate [Pradaxa] 150 MG capsule
150 mg PO BID
furosemide 40 mg Tablet
40 mg PO BID Qty: 0 0RF
ektvcdphtck-tjtcwabga-mrm C-Mn [Glucosamine Chondroitin MaxStr] 500-400 mg Capsule
1 cap PO BID
carvedilol [Coreg] 25 mg tablet
50 mg PO BID Qty: 120 0RF
candesartan 8 mg Tablet
8 mg PO DAILY Qty: 90 3RF
Jardiance 10 mg tablet
10 mg PO DAILY
zinc sulfate 50 mg zinc (220 mg) Tablet
50 mg PO DAILY
cholecalciferol (vitamin D3) 50 mcg (2,000 unit) Tablet
50 mcg PO DAILY
Ozempic 0.25 mg or 0.5 mg (2 mg/3 mL) Pen Injector
0.25 mg SC MO
escitalopram oxalate 20 mg Tablet
20 mg PO DAILY
amiodarone 100 mg Tablet
100 mg PO DAILY
Discharge Orders:
Discharge Patient (As Directed); Ordered 04/26/24
Ordered By: Rebekah Alaniz
Discharge Date and Time
Print Language: LUX[place]GISH
--- NOTE | 2024-04-26 16:19 | PN.CDI ---
CDI
- -
CDI:
Physician Documentation Request
Admit Date: 04/25/24 11:11
Dear Doctor Katty,
Patient admitted with concern for CVA.
Patient has history of afib.
Hospitalist refers to the atrial fib as paroxysmal
Cardiology refers to afib as persistent.
Neurology as chronic.
In an attempt to clarify potentially conflicting documentation, please clarify atrial fibrillation type:
Paroxysmal atrial fibrillation - terminates spontaneously or with intervention within 7 days of onset
Persistent atrial fibrillation - episodes of continuous AF that last more than 7 days and do not self-terminate
Permanent atrial fibrillation - when a decision has been made to accept the presence of AF and there is no further attempt to restore or maintain sinus rhythm
Other - please specify
Use of terms such as suspected, likely, concern for, or probable (associated with a specific diagnosis that is being evaluated, monitored, or treated as if it exists) are acceptable and can be coded in the inpatient setting, when documented at the
time of discharge.
Thank you,
Debo Hill RN, BSN
CDI Specialist
tiger text
Please use your independent medical judgment in providing your response.
== END 2024-04-26 14:50 | disposition home or self-care (01) | DRG 65 ==
LOC: 4 WEST ACU 11:11
PROVIDERS: ADMITTING PHYSICIAN Hospitalist; ATTENDING PHYSICIAN Internal Medicine; CONSULT PHYSICIAN Nuclear Medicine Nuclear Cardiology; CONSULT PHYSICIAN Psychiatry & Neurology Neurology; EMERGENCY PHYSICIAN Emergency Medicine; FAMILY PHYSICIAN Internal Medicine Geriatric Medicine
DX: I63.9 Cerebral infarction, unspecified (principal); I42.8 Other cardiomyopathies; I48.19 Other persistent atrial fibrillation; I50.42 Chronic combined systolic (congestive) and diastolic (congestive) heart failure; G47.33 Obstructive sleep apnea (adult) (pediatric); Z85.850 Personal history of malignant neoplasm of thyroid; I11.0 Hypertensive heart disease with heart failure
CPT/HCPCS: 70450; 70496; 70498; 70544; 70551; 80048; 80053; 80061; 82607; 82728; 82746; 83036; 84443; 84484; 85025; 85027; 85610; 85730; 92523; 93005; 93306; 97162; 97166; 99291; Q9967

== ENCOUNTER 2024-05-01 20:24 | Inpatient (IN) | payer BC, MEDICARE, SELFPAY ==
[2024-05-01] VITALS (9 sets, daily range): BP systolic 104–132; BP diastolic 76–96; PULSE 77; BMI 30.1
--- NOTE | 2024-05-01 16:44 | ED.GENMED ---
History of Present Illness
<Starla Wong PA-C - Last Filed: 05/01/24 22:54>
General
Chief Complaint: Fall
Source: patient
Exam Limitations: none
Time Seen by Provider: 05/01/24 16:27
Nursing documentation reviewed up to this point in time: agreed with
History of Present Illness
History of Present Illness:
This is a 74-year-old male with a past medical history of A-fib with pacemaker in place on pradaxa, CHF, diabetes, TIA presenting to emergency department today with concerns of left hip pain following a fall. Patient reports that he was coming back
home from getting blood work today when he was getting out of the car and lost his balance and fell onto his left side. Patient reports that he immediately felt severe pain in his left hip and felt a crunching sensation. Patient was on the floor
when he called EMS. Patient denies head trauma. Patient denies any loss of consciousness. Patient denies neck pain. Patient denies any nausea or vomiting. Patient denies chest pain, shortness of breath. Patient does take pradaxa. His last dose
was this morning.
Past History
<CORTNEY Syed Last Filed: 05/01/24 22:54>
Past History
ED Past Medical History: Arrthythmia (afib), Cancer (thyroid), HTN, Valvular disease (MVR), Psychiatric (anxiey) and Other (TIA, OA, kidney stones)
ED Past Surgical History: Cardiac (Cardiac ablation)
Social History
Tobacco: Non-smoker
Alcohol: None
Drug: None
Personal:
Living: with family
Employment: Employed
Family History
Family History: Other (Noncontributory)
Review of Systems
<Starla Wong PA-C - Last Filed: 05/01/24 22:54>
Review of Systems
All Other Systems: ROS reviewed and negative except as documented in HPI and ROS
Phy Exam
<Starla Wong PA-C - Last Filed: 05/01/24 22:54>
Physical Exam
Physical Exam:
General: Patient is well appearing and in no acute distress; non-toxic
Skin: Warm and dry, no rashes or lesions
Head: Normocephalic, atraumatic
Eyes: Sclera non-icteric. EOMs intact.
Cardiac: Patient is tachycardic and has irregular rhythm but no murmurs
Peripheral Vascular: No lower extremity swelling or edema. 2+ dorsalis pedis pulses bilaterally.
Pulm: Normal respiratory effort, scattered crackles heard bilaterally
Musculoskeletal: Patient holding left hip externally rotated and shortened. Significant pain with passive range of motion.
Neuro: CN II-XII intact, no focal neurologic deficits.
Psychiatric: Appropriate mood and affect.
Course
<Starla Wong PA-C - Last Filed: 05/01/24 22:54>
Orders/Labs/Results
Orders:
Orders
05/01/24 Breakfast
Regular
At Your Request: Full Participation
Fluid Restriction: 1440 mL/day (48 oz)
05/01/24 16:40
pacemaker [Interrogate Pacemaker- Treatment] ONCE
Morphine Sulfate 2 mg IV NOW STA
05/01/24 16:41
CR Hip - LT w/wo Pel 2-3 Vw* Urgent
Comment:
Reason For Exam: left hip pain following fall
Include a pelvis x-ray?: Yes
05/01/24 16:54
Acetaminophen [Tylenol] 1,000 mg PO NOW STA
05/01/24 17:00
CR Chest Single View Urgent
Reason For Exam: shortness of breath
05/01/24 17:13
Complete Blood Count/With Diff Urgent
Comprehensive Metabolic Panel Urgent
NT-proBNP Urgent
Troponin I Urgent
Comment: ADD ON
05/01/24 17:37
HYDROmorphone [Dilaudid] 0.5 mg IV NOW STA
05/01/24 18:04
HYDROmorphone [Dilaudid] 0.5 mg IV NOW STA
05/01/24 18:44
Add On- LAB Urgent
Tests Added?: troponin
05/01/24 19:54
Admit/Transfer Patient As Directed
Co-Sign Provider:
Level of Care: Inpatient admission
Assign to:: Telemetry
Physician / Group: Qamar
Diagnosis: L Hip Fracture
Reason for Telemetry: Arrhythmia
Date to Stop Telemetry: 05/04/24
Time to Stop Telemetry: 11:00
Reason for Hospitalization: L Hip Fracture
Expected length of stay greater than two midnights?: Yes
ELOS- Estimated Length of Stay in days: 4
I certify the patient meets the requirements for IP care: Yes
PRN Pain Medication Management As Directed
May give lesser potent ordered pain med per pt: Yes
preference::
Protocol:: Medication orders for pain may be administered in a
manner that supports deferring to patient preference
when the pt is:
- Requesting an ordered lesser potent pain medication.
Least to most potent pain medications are defined
as: acetaminophen < NSAID < tramadol < opioids
(morphine, oxycodone, hydromorphone).
- Requesting a lesser dose of the same medication IF
ORDERED.
- Requesting a less intrusive route of administration
if both routes are prescribed by the provider (PO <
IV).
05/01/24 19:58
Code Status As Directed
Resuscitation Status: Full Code
05/01/24 20:22
Carvedilol [Coreg] 50 mg PO NOW STA
05/01/24 21:28
HYDROmorphone [Dilaudid] 0.5 mg IV Q4HPRN PRN
Oxycodone [Roxicodone] 10 mg PO Q4HPRN PRN
Polyethylene Glycol Powder [Miralax] 17 grams PO DAILYPRN PRN
05/01/24 21:28
CARDIOLOGY CONSULT Routine
Consulting Provider: Cali Pan
Was physician already notified: Yes
Reason for consult: A-Fib, CHF - L Hip Fracture
ORTHOPEDIC CONSULT Routine
Consulting Provider: Alejandro Sawyer
Was physician already notified: Yes
Reason for consult: L Hip Fracture
Activity As Directed
Activity Level: Bedrest
Bladder Scan As Directed
Follow Bladder Retention/Intermittent Cath Algorithm?: Yes
PRN if no void in __ hours: 6
Frequency: Per Retention Algorithm
If Bladder Scan Result >: 400
then:: Straight cath
EKG with chest pain [ECG as needed] As Directed
ECG as needed for:: Chest Pain
I/O [Intake/ Output] As Directed
Frequency: Per unit guidelines
Pneumatic Compression Sleeves As Directed
Type: Knee high
Straight Cath As Directed
Frequency: Per Retention Algorithm
Additional Instructions: straight cath as needed per acute urinary retention algorithm for 24 hrs
Additional Instructions: for bladder scan greater than 400 mL
Vital Signs As Directed
Frequency: Per unit guidelines
Weight As Directed
Frequency: Daily
Oxygen Therapy [O2 Therapy] [RESP] Routine
Titrate/Wean O2 to maintain O2 sat greater than (%): 94
DX Deep Vein Thrombosis Video Routine
05/01/24 22:00
Sennosides [Senokot] 17.2 mg PO HS
05/01/24 23:00
Acetaminophen [Tylenol] 1,000 mg PO TID
05/02/24 06:00
EKG [Electrocardiogram (*1)] IN AM
Reason for Study: Chest Pain
Basic Metabolic Panel IN AM
Complete Blood Count/No Diff IN AM
PTT IN AM
Prothrombin Time IN AM
05/02/24 08:00
Amiodarone [Pacerone] 100 mg PO DAILY
Atorvastatin [Lipitor] 40 mg PO DAILY
Carvedilol [Coreg] 50 mg PO BID
Escitalopram Oxalate [Lexapro] 20 mg PO DAILY
Furosemide [Lasix] 80 mg PO BID AT 0800,1600
05/04/24 11:00
DC Protocol for Telemetry ONCE
Abnormal Lab Results
05/01/24
17:13
WBC 11.6 H 10^3/uL
(4.8-10.8)
Abs Immat Gran (auto) 0.1 H 10^3/uL
(0-0.05)
Absolute Neuts (auto) 8.1 H 10^3/uL
(1.4-6.5)
Absolute Monos (auto) 1.2 H 10^3/uL
(0.1-0.6)
Immature Gran % 1.0 H %
(0-0.5)
Lymphocytes % 17.3 L %
(20.5-51.1)
Monocytes % 10.5 H %
(1.7-9.3)
Sodium 134 L mmol/L
(135-145)
Chloride 92 L mmol/L
(98-107)
BUN 57 H mg/dl
(9-20)
Creatinine 2.4 H mg/dL
(0.7-1.3)
Glucose 110 H mg/dl
(70-99)
Total Bilirubin 2.0 H mg/dl
(0.2-1.3)
05/01/24 17:13
05/01/24 17:13
Vital Signs
Initial and Last Documented VS:
Initial Vital Signs
Pulse Ox
87
05/01/24 16:37
Last Documented Vital Signs
Temp Pulse Resp BP Pulse Ox
97.3 F 130 18 127/95 94
05/01/24 21:44 05/01/24 21:52 05/01/24 21:44 05/01/24 21:52 05/01/24 21:44
<Phillip KirstyCarole Goodwin, - Last Filed: 05/01/24 20:40>
Orders/Labs/Results
Orders:
Orders
05/01/24 Breakfast
Regular
At Your Request: Full Participation
Fluid Restriction: 1440 mL/day (48 oz)
05/01/24 16:40
pacemaker [Interrogate Pacemaker- Treatment] ONCE
Morphine Sulfate 2 mg IV NOW STA
05/01/24 16:41
CR Hip - LT w/wo Pel 2-3 Vw* Urgent
Comment:
Reason For Exam: left hip pain following fall
Include a pelvis x-ray?: Yes
05/01/24 16:54
Acetaminophen [Tylenol] 1,000 mg PO NOW STA
05/01/24 17:00
CR Chest Single View Urgent
Reason For Exam: shortness of breath
05/01/24 17:13
Complete Blood Count/With Diff Urgent
Comprehensive Metabolic Panel Urgent
NT-proBNP Urgent
Troponin I Urgent
Comment: ADD ON
05/01/24 17:37
HYDROmorphone [Dilaudid] 0.5 mg IV NOW STA
05/01/24 18:04
HYDROmorphone [Dilaudid] 0.5 mg IV NOW STA
05/01/24 18:44
Add On- LAB Urgent
Tests Added?: troponin
05/01/24 19:54
Admit/Transfer Patient As Directed
Co-Sign Provider:
Level of Care: Inpatient admission
Assign to:: Telemetry
Physician / Group: Qamar
Diagnosis: L Hip Fracture
Reason for Telemetry: Arrhythmia
Date to Stop Telemetry: 05/04/24
Time to Stop Telemetry: 11:00
Reason for Hospitalization: L Hip Fracture
Expected length of stay greater than two midnights?: Yes
ELOS- Estimated Length of Stay in days: 4
I certify the patient meets the requirements for IP care: Yes
PRN Pain Medication Management As Directed
May give lesser potent ordered pain med per pt: Yes
preference::
Protocol:: Medication orders for pain may be administered in a
manner that supports deferring to patient preference
when the pt is:
- Requesting an ordered lesser potent pain medication.
Least to most potent pain medications are defined
as: acetaminophen < NSAID < tramadol < opioids
(morphine, oxycodone, hydromorphone).
- Requesting a lesser dose of the same medication IF
ORDERED.
- Requesting a less intrusive route of administration
if both routes are prescribed by the provider (PO <
IV).
05/01/24 19:58
Code Status As Directed
Resuscitation Status: Full Code
05/01/24 20:22
Carvedilol [Coreg] 50 mg PO NOW STA
05/01/24 21:28
HYDROmorphone [Dilaudid] 0.5 mg IV Q4HPRN PRN
Oxycodone [Roxicodone] 10 mg PO Q4HPRN PRN
Polyethylene Glycol Powder [Miralax] 17 grams PO DAILYPRN PRN
05/01/24 21:28
CARDIOLOGY CONSULT Routine
Consulting Provider: Cali Pan
Was physician already notified: Yes
Reason for consult: A-Fib, CHF - L Hip Fracture
ORTHOPEDIC CONSULT Routine
Consulting Provider: Alejandro Sawyer
Was physician already notified: Yes
Reason for consult: L Hip Fracture
Activity As Directed
Activity Level: Bedrest
Bladder Scan As Directed
Follow Bladder Retention/Intermittent Cath Algorithm?: Yes
PRN if no void in __ hours: 6
Frequency: Per Retention Algorithm
If Bladder Scan Result >: 400
then:: Straight cath
EKG with chest pain [ECG as needed] As Directed
ECG as needed for:: Chest Pain
I/O [Intake/ Output] As Directed
Frequency: Per unit guidelines
Pneumatic Compression Sleeves As Directed
Type: Knee high
Straight Cath As Directed
Frequency: Per Retention Algorithm
Additional Instructions: straight cath as needed per acute urinary retention algorithm for 24 hrs
Additional Instructions: for bladder scan greater than 400 mL
Vital Signs As Directed
Frequency: Per unit guidelines
Weight As Directed
Frequency: Daily
Oxygen Therapy [O2 Therapy] [RESP] Routine
Titrate/Wean O2 to maintain O2 sat greater than (%): 94
DX Deep Vein Thrombosis Video Routine
05/01/24 22:00
Sennosides [Senokot] 17.2 mg PO HS
05/01/24 23:00
Acetaminophen [Tylenol] 1,000 mg PO TID
05/02/24 06:00
EKG [Electrocardiogram (*1)] IN AM
Reason for Study: Chest Pain
Basic Metabolic Panel IN AM
Complete Blood Count/No Diff IN AM
PTT IN AM
Prothrombin Time IN AM
05/02/24 08:00
Amiodarone [Pacerone] 100 mg PO DAILY
Atorvastatin [Lipitor] 40 mg PO DAILY
Carvedilol [Coreg] 50 mg PO BID
Escitalopram Oxalate [Lexapro] 20 mg PO DAILY
Furosemide [Lasix] 80 mg PO BID AT 0800,1600
05/04/24 11:00
DC Protocol for Telemetry ONCE
Abnormal Lab Results
05/01/24
17:13
WBC 11.6 H 10^3/uL
(4.8-10.8)
Abs Immat Gran (auto) 0.1 H 10^3/uL
(0-0.05)
Absolute Neuts (auto) 8.1 H 10^3/uL
(1.4-6.5)
Absolute Monos (auto) 1.2 H 10^3/uL
(0.1-0.6)
Immature Gran % 1.0 H %
(0-0.5)
Lymphocytes % 17.3 L %
(20.5-51.1)
Monocytes % 10.5 H %
(1.7-9.3)
Sodium 134 L mmol/L
(135-145)
Chloride 92 L mmol/L
(98-107)
BUN 57 H mg/dl
(9-20)
Creatinine 2.4 H mg/dL
(0.7-1.3)
Glucose 110 H mg/dl
(70-99)
Total Bilirubin 2.0 H mg/dl
(0.2-1.3)
05/01/24 17:13
05/01/24 17:13
Vital Signs
Initial and Last Documented VS:
Initial Vital Signs
Pulse Ox
87
05/01/24 16:37
Last Documented Vital Signs
Temp Pulse Resp BP Pulse Ox
97.3 F 130 18 127/95 94
05/01/24 21:44 05/01/24 21:52 05/01/24 21:44 05/01/24 21:52 05/01/24 21:44
Robertlt;Starla Wong PA-C - Last Filed: 05/01/24 22:54>
MDM/Problems Addressed
Differential Diagnosis Includes:
ddx include hip fracture, pelvic fracture, acute CHF exacerbation, afib, pneumonia
MDM/Problems Addressed:
Hip pain, hypoxia, tachycardia:
This is a 74-year-old male with a past medical history of A-fib with pacemaker in place on pradaxa, CHF, diabetes, TIA presenting to emergency department today with concerns of left hip pain following a fall. Patient reports that he was coming back
home from getting blood work today when he was getting out of the car and lost his balance and fell onto his left side. He immediately had a crunching sensation in his left hip. He was found to have a left intertochanteric fracture. Orthopedics made
aware.
While evaluating patient, we did note that his pulse ox was in the high 80s with good pleth. He was lying supine at this time. Patient denies any shortness of breath but does note that his commercial front load driver told him that he had fluid in his lungs
recently and he had increased dose of his Lasix. Patient adamantly denies chest pain, shortness of breath. She denies any cough or cold-like symptoms, denies any dizziness or lightheadedness, fevers or chills. He was put on 6L of oxygen to maintain
his sats in the 90s. He was weaned down to 3L while maintaining his sats. His CXR demonstrates cardiomegaly but no obvious effusion or infiltrate, appears similar to previous study. We did interrogate his pacemaker which demonstrated that he has
been in an atrial arrhythmia but did not show any evidence of ventricular arrhythmias or firing. Patient is tachycardic however considering patient has no new CXR findings,
I was called back into the room shortly after patient arrived back from x-ray and alerted that patient became very diaphoretic. I reevaluated patient and patient is afebrile, denies chest pain.
Chronic conditions affecting care:
afib on pradaxa, CHF ICD in place, diabetes
Acute Exacerbation and/or Progression of Chronic Illness:
afib on pradaxa, CHF ICD in place, diabetes
Robertlt;Starla Wong PA-C - Last Filed: 05/01/24 22:54>
*Pulse Oximetry
Patient hypoxic: yes
*Critical Care Note
Total Time (30-74mins, 75-104mins- exclusive of procedures): Not Applicable
<Starla Wong PA-C - Last Filed: 05/01/24 22:54>
Update Note
Update Note:
5:30 pm-- Patient was sent back
ED Attending Note
<Starla Wong PA-C - Last Filed: 05/01/24 22:54>
-
Portions of this chart may have been created with voice recognition software.� Occasional wrong word or��sound alike� substitutions may have occurred due to the inherent limitations of voice recognition software.
<Phillip Goodwin DO - Last Filed: 05/01/24 20:40>
ED Attending Note
Patient seen and examined by attending physician: Yes
I performed the substantive portion of visit, reviewed & personally made and approve the management plan that is documented in note by myself or TESSA.: Yes
ED Attending Note:
Patient presents after a fall. Patient states he lost his balance and fell landing on his left side. Patient heard a crunch when he fell. He had immediate and significant pain in his left hip preventing him from moving or getting up. Patient was
actually hospitalized here at [facility] recently for a CVA. Patient has a complex medical history including atrial fibrillation and cardiomyopathy. He has an AICD. He does not believe he had loss of consciousness and does not believe he had a
shock from his ICD. Patient also noted to be diaphoretic at times. Normal
General: Awake, Alert, Oriented X3. Appears uncomfortable
Vitals: Tachycardic
Head: Atraumatic
Eyes: Pupils equal, EOMI
Throat: Airway intact, no exudates
Neck: Trachea midline
Lungs: Few crackles bilaterally
Heart: Regular rate, no murmurs
Abd: Soft, Nontender, No pulsatile mass
Neuro: Nonfocal
Skin: Warm, dry, no rash
Extremities: pulses equal b/l, no edema. Left leg shortened and externally rotated. Significant pain with minimal movement of the left leg.
Patient presents with left hip pain. He also noted with tachycardia and was noted to be hypoxic on room air. Patient was placed on supplemental oxygen. He denies significant subjective dyspnea despite his low pulse ox. Chest x-ray was obtained
and shows a large heart with minimal increased interstitial findings. Hip x-ray shows a intertrochanteric fracture. A BNP had been ordered which is lower than the last 2 measurements which were much higher. I believe the patient shortness of
breath and diaphoresis is related to the significant pain he was experiencing from his hip fracture. Patient was treated with IV analgesia. With analgesia and time he appears much more comfortable. At the time of my conversation with him to
inform him of his fracture he was conversant and in no respiratory distress whatsoever. His heart rate has improved to the 1 teens. Who presents communicated with the hospitalist and with orthopedics. Orthopedics was informed that the patient
takes Pradaxa.
Discharge Plan
Departure
Patient Disposition: Admit
Date of Disposition: 05/01/24
Time of Disposition: 19:13
Admit to: Telemetry
Presentation/result/management discussed w/ accepting MD/DO: Hospitalist
Condition: Fair
Discharge Problem:
Intertrochanteric fracture of left femur, Chronic systolic (congestive) heart failure
Interventions
Interventions:
*Risk Screen - Suicide Last Done: 05/01/24 16:28
*General Assessment Last Done: 05/01/24 16:28
*Neglect/Abuse Screening Last Done: 05/01/24 16:28
ED- Fall Risk Assessment Last Done: 05/01/24 21:32
*ED COVID-19 Vaccine History Last Done: 05/01/24 16:28
*Nursing Disposition Last Done: 05/01/24 21:32
ED-Musculoskeletal Assessment Last Done: 05/01/24 17:22
ED- Neurological Assessment Last Done: 05/01/24 17:22
ED-Skin Assessment Last Done: 05/01/24 17:23
Discharge Date and Time
Discharge Date/Time: 05/01/24 21:32
[2024-05-01] MEDS: TYLENOL 1000 MG PO (17:04)
[2024-05-01 17:20] LABS: % Basophils 0.4 % (0-2); % Lymphocytes 17.3 % (20.5-51.1); % Monocytes 10.5 % (1.7-9.3); % Neutrophils 69.8 % (42.2-75.2); Absolute Basophils 0.1 10^3/uL (0-0.2); Absolute Eosinophils 0.1 10^3/uL (0-0.7); Absolute Immature Granulocytes 0.1 10^3/uL (0-0.05); Absolute Monocytes 1.2 10^3/uL (0.1-0.6); Absolute Neutrophils 8.1 10^3/uL (1.4-6.5); Hematocrit 45.8 % (39.0-52.0); Hemoglobin 16.4 g/dL (13.0-18.0); Mean Corp Hgb Conc. 35.8 g/dL (33.0-37.0); Mean Corpuscular Hgb 30.7 pg (27.0-31.0); Mean Corpuscular Volume 85.8 fL (80.0-94.0); Mean Platelet Volume 9.2 fL (7.4-10.4); Nucleated Red Blood Cells % 0 % (-); Platelet Count 387 10^3/uL (130-400); Red Blood Cell Count 5.34 10^6/uL (4.70-6.10); Red Cell Dist. Width 14.5 % (11.5-14.5); White Blood Cell Count 11.6 10^3/uL (4.8-10.8)
[2024-05-01 17:39] LABS: ALT (SGPT) 19 U/L (0-50); AST (SGOT) 27 U/L (17-59); Albumin 4.5 g/dl (3.5-5.0); Alkaline Phosphatase 95 U/L (38-126); Blood Urea Nitrogen 57 mg/dl (9-20); Calcium 9.5 mg/dl (8.4-10.2); Carbon Dioxide 30 mmol/L (22-30); Chloride 92 mmol/L (98-107); Estimated Creatinine Clearance 29 ml/min; Glucose 110 mg/dl (70-99); Potassium 3.8 mmol/L (3.5-5.1); Sodium 134 mmol/L (135-145); Total Protein 7.6 g/dl (6.3-8.2); eGFR 27.79
[2024-05-01] MEDS: DILAUDID 0.5 MG IV ×3 (17:40→21:47)
[2024-05-01 18:08] LABS: NT-proBNP 1560 pg/ml
[2024-05-01 19:44] LABS: Troponin I 0.015 ng/ml
--- NOTE | 2024-05-01 20:03 | HPS.HSE ---
Family Physician
-
Family Physician: German Cleaning
Chief Complaint
-
Fall / L Hip Pain
History of Present Illness
Patient is a 74y M with PMH significant for persistent A-Fib, cardiomyopathy / CHFrEF and recent admission for brainstem CVA who presents to ED complaining of left hip pain s/p fall. Patient was admitted to from 04/24 - 04/26 after symptoms of
aphasia and lack of balance. His symptoms resolved prior to admission. Work-up revealed evidence of a small brainstem CVA. Patient was continued on his usual Pradaxa and discharged to home.
Shortly after return home, patient noted sense of bloating in the abdomen which he typically experiences with fluid retention / CHF exacerbation.
He contacted his Refund Clerk who added metolazone 2.5mg x 1 and Lasix 160mg x 1 which the patient took on Tuesday. He diuresed quite effectively over the next 24 hours with a loss of 10 lbs reported in the that time.
Today the patient felt very well. He went to have some outpatient blood tests performed. When he returned home he was getting out of the car when he lost his balance and fell onto his L side.
Patient denies striking his head or any LOC.
He denies any prodrome of lightheadedness, dizziness, chest pain or dyspnea.
Patient is not entirely certain how he fell - he alternately supposes that he tripped over his cane / footwear (he was wearing flip-flops) or that his L side 'gave out'.
He has no complaints of L weakness, numbness, headache, etc at present.
His only complaint in the ED is of L hip pain.
Imaging done in the ED today shows L hip fracture and patient will be admitted for further evaluation and treatment.
Of note: patient received a 1st dose of Ozempic on 04/27 for weight loss / obesity.
Medical History
Past Medical History
Past Medical History: Reports Other
Additional Past Medical History:
Persistent Atrial Fibrillation
Chronic HFrEF
Hypertension
VERNON on CPAP
Thyroid Carcinoma
Anxiety / Depression
Obesity
Past Surgical History: Reports Other
Additional Past Surgical History:
PVI Ablation x 4
MAZE Procedure
PPM / AICD Placement
Partial Thyroidectomy
Social History
Tobacco: Former Smoker (Quit smoking 10y ago. > 50 pack years total.)
Alcohol: None
Drug: None
Personal:
Living: With Family
Family History
Family History: Other (A-Fib in multiple family members.)
Allergies / Home Medications
Allergies reflects when Allergies were last updated in [employer].
Home Medications with original date entered in [employer]
Allergy/Medication List:
Allergies
Allergy/AdvReac Type Severity Reaction Status Date / Time
spironolactone Allergy gynecomasti Verified 04/24/24 21:07
[From Aldactone] a
Home Medications
dabigatran etexilate 150 mg capsule (Pradaxa) 150 mg PO BID Blood clot prevention/tx 02/11/21
fbezxonzlom-wcqkujmvw-xwo C-Mn 500 mg-400 mg capsule (Glucosamine Chondroitin Maximum Strength) 1 cap PO BID Supplement 06/09/23
carvedilol 25 mg tablet (Coreg) 50 mg (2 x 25 mg) PO BID Arrhythmia #120 tabs 06/10/23
candesartan 8 mg tablet 8 mg PO DAILY Blood pressure #90 tabs 08/09/23
cholecalciferol (vitamin D3) 50 mcg (2,000 unit) tablet 50 mcg PO DAILY Supplement 04/24/24
empagliflozin 10 mg tablet (Jardiance) 10 mg PO DAILY DIABETES 04/24/24
semaglutide 0.25 mg or 0.5 mg (2 mg/3 mL) subcutaneous pen injector (Ozempic) 0.25 mg SC MO diabetes 04/24/24
zinc sulfate 50 mg zinc (220 mg) tablet 50 mg PO DAILY Supplement 04/24/24
amiodarone 100 mg tablet 100 mg PO DAILY Arrhythmia 04/25/24
escitalopram oxalate 20 mg tablet 20 mg PO DAILY #0 tabs 04/26/24
atorvastatin 40 mg tablet 40 mg PO DAILY 05/01/24
furosemide 40 mg tablet 80 mg PO BID Fluid retention/Swelling 05/01/24
metolazone 2.5 mg tablet 2.5 mg PO DAILYPRN PRN weight gain/swelling 05/01/24
Review of Systems
-
History Source: Patient
A 12 point ROS was completed and negative except as noted: Yes
Constitutional: Reports Weight Loss (10lbs in the past 2 days.); Denies Fever or Chills
EENT: Denies Sore Throat
Respiratory: Denies Cough or Trouble Breathing
Cardiac: Denies Chest Pain or Palpitations
Abdomen/GI: Denies Abdominal Pain, Nausea, Vomiting or Diarrhea
: Reports Frequency; Denies Dysuria
Musculoskeletal: Reports Joint Pain; Denies Edema
Neurological: Denies Dizzy or Headache
Psych: Denies Depression or Anxiety
Physical Exam
Vital Signs
Vital Signs
Temp Pulse Resp BP Pulse Ox
97.7 F 122 18 109/78 96
05/01/24 19:12 05/01/24 19:00 05/01/24 19:00 05/01/24 19:00 05/01/24 19:00
Physical Exam
General: Other (74y M in mild distress due to pain.)
HEENT: Moist mucous membranes and PERRLA
Respiratory: Clear; No Wheezes, Rales or Rhonchi
Cardiac: S1/S2, Irregular Rhythm and Tachycardia; No Murmur
GI: Soft, Non Tender, Non Distended and Normal Bowel Sounds
Musculoskeletal: No Clubbing, No Cyanosis, No Edema and Other (Moderate varicose veins. LLE straightened / externally rotated.)
Neuro: AO x 3 and Nonfocal/grossly intact
Laboratory Results
-
05/01/24 17:13
05/01/24 17:13
Laboratory Results
Total Bilirubin 2.0 mg/dl (0.2-1.3) H 05/01/24 17:13
AST 27 U/L (17-59) 05/01/24 17:13
ALT 19 U/L (0-50) 05/01/24 17:13
Alkaline Phosphatase 95 U/L (38-126) 05/01/24 17:13
Troponin I 0.015 ng/ml 05/01/24 17:13
Impression/Plan
-
A/P: Patient is a 74y M with PMH significant fr A-Fib, CHF and recent CVA who presents to ED complaining of L hip pain s/p fall at home.
Left Femur Fracture
- Admit for further evaluation and treatment.
- Bedrest / pain control at present.
- Ortho consulted for eventual operative repair.
- Pradaxa last taken this AM - hold further doses until post-op.
- Pre-op assessment evaluation by Cardiology as noted below.
Fall at Home
- Mechanism of fall is not entirely clear - but seems related to dcnr-nub-oxrm or L weakness.
- No appreciable L sided weakness at present.
- Tachycardic in the ED - in part due to ongoing pain.
- No neurologic symptoms / complaints.
- No head injury / LOC.
- Monitor on telemetry for now.
Persistent Atrial Fibrillation with Rapid Ventricular Response
- HR in the 110-120 range at present.
- Continue usual home medications including amiodarone.
- Continue carvedilol and give usual PM dose now.
- Hold Pradaxa acutely given plans for OR.
- Cardiology evaluation for additional recommendations.
- Pursue adequate pain control and follow for improvement in rates.
- PPM / AICD interrogated in the ED and shows only persistent A-Fib since October.
Chronic HFrEF
- Stable at present. Metolazone and double-dose Lasix taken on Tuesday with effective diuresis.
- Weight is now lower than it has been in some time.
- Hold evening dose of Lasix and resume usual 80mg BID dosing in the AM.
- Hold Jardiance for now.
- Hold further metolazone for now.
- Follow I/Os, daily weights, etc.
- Adjust treatment as needed.
- Echo done last visit with EF = 20-25%.
- Cardiology evaluation as noted above.
ASCVD
Acute CVA
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
- No new therapies added at that time.
- Will begin ASA 81mg for now while Pradaxa on hold given proximity of CVA.
- Follow for any new neurologic symptoms / complaints.
CAMILA
- SCr = 2.4 compared to known baseline of 1.
- Suspect due to brisk diuresis over the past 2 days +/- new initiation of Ozempic.
- Would hold further Ozempic.
- Hold ARB and Jardiance acutely.
- Follow fluid balance as noted above.
- Follow for return to baseline renal function.
Anxiety / Depression
- Stable. Continue Lexapro.
History of Thyroid Carcinoma
- s/p partial thyroidectomy.
- Thyroid nodule incidentally noted on recent MR imaging.
- Needs OP follow-up, especially given prior cancer history.
DVT Prophylaxis: SCDs while Pradaxa on hold.
Code Status: Full
[2024-05-01] MEDS: COREG 50 MG PO (21:52)
[2024-05-01] MEDS: SENOKOT PO (23:16)
--- NOTE | 2024-05-01 23:59 | PTCARENOTE ---
Pt arrived from ED at aprox 2130 with left hip fracture. Pt in severe pain as we pulled him over to the bed. Assessment and admission done. Pt vitals stable. ST on monitor. and son at bedside. Pt given IV dilaudid for pain. Pt instructed to
ring for assistance.
[2024-05-02] VITALS (7 sets, daily range): BP systolic 85–120; BP diastolic 57–78; BMI 30.3
[2024-05-02] MEDS: DILAUDID 0.5 MG IV (03:47)
[2024-05-02 07:19] LABS: Hematocrit 45.9 % (39.0-52.0); Hemoglobin 16.4 g/dL (13.0-18.0); Mean Corp Hgb Conc. 35.7 g/dL (33.0-37.0); Mean Corpuscular Hgb 30.7 pg (27.0-31.0); Mean Platelet Volume 9.4 fL (7.4-10.4); Platelet Count 364 10^3/uL (130-400); Red Blood Cell Count 5.34 10^6/uL (4.70-6.10); Red Cell Dist. Width 14.6 % (11.5-14.5); White Blood Cell Count 11.9 10^3/uL (4.8-10.8)
[2024-05-02 07:24] LABS: INR 1.45; PT 17.5 Sec (11.4-14.6)
[2024-05-02 07:25] LABS: APTT 50.2 Sec (23.4-35.0)
[2024-05-02 08:11] LABS: Blood Urea Nitrogen 67 mg/dl (9-20); Carbon Dioxide 26 mmol/L (22-30); Chloride 94 mmol/L (98-107); Estimated Creatinine Clearance 33 ml/min; Glucose 117 mg/dl (70-99); Potassium 3.5 mmol/L (3.5-5.1); Sodium 136 mmol/L (135-145); eGFR 32.62
[2024-05-02] MEDS: LASIX 80 MG PO ×2 (09:03→17:12)
[2024-05-02] MEDS: LEXAPRO 20 MG PO (09:03)
[2024-05-02] MEDS: COREG 50 MG PO (09:05)
[2024-05-02] MEDS: PACERONE 100 MG PO (09:05)
[2024-05-02] MEDS: LIPITOR 40 MG PO (09:06)
[2024-05-02] MEDS: TYLENOL 1000 MG PO ×4 (09:06→20:52)
--- NOTE | 2024-05-02 09:45 | W.PN.UPDATE ---
Update Note
Progress Note Update
Full H&P to follow
74-year-old male admitted for left displaced intertrochanteric femur fracture. Imaging was shown and reviewed with the patient. Recommended for operative intervention. Plan for surgery tomorrow 03 May 2024 for further Pradaxa washout for left
hip cephalomedullary nail fixation.
--- NOTE | 2024-05-02 10:21 | CM ---
Reviewed the chart notes and spoke with the patient at the bedside. The patient expects to go to the OR tomorrow for femur fracture repair. The patient resides with his spouse in a two story home with two steps to enter with a master bedroom on
first level. The patient reports on DME is CPAP. The patient reports no VN or SNF in the past. The patient confirmed his pharmacy of choice is [facility]. CM continues to be available to patient/family and is monitoring
medical plan for needs at discharge.
Plan: Discharge plans will depend on the patient's progress.
--- NOTE | 2024-05-02 11:01 | CON.CAR ---
Addendum entered and electronically signed by Josh Bustillo MD 05/02/24 12:34:
I saw and examined the patient.
The Assistant Coach's note was reviewed and I agree with the note.
Comment:
GEN: No distress, awake, Ox3
HEENT: supple, anicteric, mmm
LUNGS: CTA, no wheezes/rales
CV: Reg, S1/S2, 1/6 syst LSB, no galllop
ABD: soft, BS+, NT/ND
EXT: No edema
NEURO: Gross non-focal
SKIN: No rash
Plan:
He has a past medical history chronic heart failure with reduced ejection fraction, cardiomyopathy, persistent A-fib status post multiple PVI/convergent maze procedure, left atrial appendage clip, biventricular ICD, CVA, hypertension and sleep apnea
who presents status post fall with a new left hip fracture. Over the weekend he was volume overloaded and had metolazone added to his Lasix and diuresed 10 pounds. His respiratory status and breathing was improved. While getting out of a car he
slipped and fell on his left side and broke his hip.
Hold Pradaxa. His creatinine is elevated now at 2.1. His volume status is improved. Would hold metolazone and diuretics for 24 hours. Weight is overall down 10 pounds.
Follow Creat and daily weight
Cont Coreg/Amiodarone. Hold candesartan and Jardiance
Afib remains rate controlled.
Stable to proceed with orthopedic surgery. He will be moderate to high risk for OR but stable to proceed from cardiology standpoint.
Original Note:
Consultation
Consultation Request
Date/Time Consultation Performed: 05/02/24
Requesting Provider: Dr. Esparza
Performing Provider: Hailey Salazar PA-C for Dr. Bustillo
Reason for Consultation: CAMILA, L hip fracture
Medical History
-
History of Present Illness:
Patient with PMH of chronic heart failure with reduced ejection fraction, cardiomyopathy, persistent atrial fibrillation with multiple PVI's including convergent maze procedure, left atrial appendage clipping, BiV ICD, chronic anticoagulation
maintained on Pradaxa, stroke, hypertension, anxiety/depression, sleep apnea, with admission to 04/24-04/26/24 for slurred speech and found to have small posterior brainstem CVA. He was continued on pradaxa. By echo during admission EF found to be
further reduced from 35% to 20-25%. After discharge patient had called office complaining of abd bloating and had increased his lasix dose from 40mg BID to 80mg BID without significant response. He was recommended 2.5mg metolazone x1 which he took
and states he urinated 21 times with resolution of his symptoms. He states yesterday he had just gotten out of his car after coming home from getting bloodwork at the hospital and fell. He denies preceding dizziness, lightheadedness, SOB, CP. Upon
arrival to ER was noted by imaging to have L hip fracture and bloodwork with CAMILA. Cardiology consulted for evaluation.
PMH:
Admission to 04/24-04/26/24 for CVA
Chronic systolic HFrEF, 20-25%
s/p [employer] Bi-V ICD 06/09/23
Persistent AFib
multiple prior PVIs (2010, 2012, 2018, 2020)
Convergent Maze procedure w/LINNETTE clip (04/2021)
s/p CV 10/2022, 07/15/2023
Failed tikosyn (unable to maintain sinus rhythm)
Chronic OAC with Pradaxa
History of CVA
HTN
Anxiety
VERNON
Thyroid CA, s/p partial thyroidectomy
Past Medical History
Past Medical History: Other (See HPI)
Past Surgical History: Cardiac (Multiple PVIs with convergent Maze via subxiphoid approach 04/2021, multiple CV, BiVICD 05/2023, LA appendage occlusion with 50mm Box Atriclip device 04/21/21) and Other (s/p partial thyroidectomy)
Social History
Tobacco: Former Smoker
Alcohol: None
Personal:
Living: With Family
Employment: Employed
Family History
Family History: CAD, Hypertension and Other (Afib)
Allergies / Home Medications
Allergy/AdvReac Type Severity Reaction Status Date / Time
spironolactone Allergy gynecomasti Verified 04/24/24 21:07
[From Aldactone] a
�Medication �Instructions �Recorded �Confirmed �Type
dabigatran etexilate 150 mg 150 mg PO BID Blood clot 02/11/21 05/01/24 History
capsule (Pradaxa) prevention/tx
qoqtjakhdyo-ziypxvsqp-xhl C-Mn 500 1 cap PO BID Supplement 06/09/23 05/01/24 History
mg-400 mg capsule (Glucosamine
Chondroitin Maximum Strength)
carvedilol 25 mg tablet (Coreg) 50 mg (2 x 25 mg) PO BID 06/10/23 05/01/24 Rx
Arrhythmia #120 tabs
candesartan 8 mg tablet 8 mg PO DAILY Blood pressure #90 08/09/23 05/01/24 Rx
tabs
cholecalciferol (vitamin D3) 50 50 mcg PO DAILY Supplement 04/24/24 05/01/24 History
mcg (2,000 unit) tablet
empagliflozin 10 mg tablet 10 mg PO DAILY DIABETES 04/24/24 05/01/24 History
(Jardiance)
semaglutide 0.25 mg or 0.5 mg (2 0.25 mg SC MO diabetes 04/24/24 05/01/24 History
mg/3 mL) subcutaneous pen injector
(Ozempic)
zinc sulfate 50 mg zinc (220 mg) 50 mg PO DAILY Supplement 04/24/24 05/01/24 History
tablet
amiodarone 100 mg tablet 100 mg PO DAILY Arrhythmia 04/25/24 05/01/24 History
escitalopram oxalate 20 mg tablet 20 mg PO DAILY #0 tabs 04/26/24 05/01/24 Rx
atorvastatin 40 mg tablet 40 mg PO DAILY High Cholesterol 05/01/24 05/01/24 History
furosemide 40 mg tablet 80 mg PO BID Fluid 05/01/24 05/01/24 History
retention/Swelling
metolazone 2.5 mg tablet 2.5 mg PO DAILYPRN PRN weight 05/01/24 05/01/24 History
gain/swelling
Review of Systems
-
History Source: Patient
All other systems: Negative unless noted
Physical Exam
Vital Signs
Temp Pulse Resp BP Pulse Ox
98.1 F 92 14 108/69 92
05/02/24 07:34 05/02/24 09:05 05/02/24 07:34 05/02/24 09:05 05/02/24 07:34
Lab Results
05/02/24 06:43
05/02/24 06:43
Troponin I 0.015 ng/ml 05/01/24 17:13
Fdr-J-Hhbswovmlro Pept 1560 pg/ml 05/01/24 17:13
Physical Exam
General: No Apparent Distress and Comfortable
HEENT: Normocephalic, Anicteric and Moist Mucous Membranes
Respiratory: Clear and Non Labored Respirations
Cardiac: S1/S2 and Irregular Rhythm
GI: Soft, Non Tender, Non Distended and Normal Bowel Sounds
Musculoskeletal: No Clubbing, No Cyanosis and No Edema
Skin: Warm and Dry
Neuro: AO x 3
Impression / Plan
-
PCP: Leonides Cleaning MD
CDY: Juan Ramon Owens MD
IMPRESSION:
Fall
L hip fracture
CAMILA
Admission to 04/24-04/26/24 for CVA
Non ischemic cardiomyopathy
Chronic systolic HFrEF, 20-25%
s/p Medtronic Bi-V 06/09/23
Persistent AFib
multiple prior PVIs (2010, 2012, 2018, 2020)
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
s/p CV 10/2022, 07/15/2023
Failed tikosyn (unable to maintain sinus rhythm)
Chronic OAC with Pradaxa
History of CVA
HTN
Anxiety
VERNON
Thyroid CA, s/p partial thyroidectomy
Echo 05/20/2023: moderately reduced LV systolic function with ejection fraction 30 to 35%.� Mild concentric LV.� Normal RV size.� Biatrial dilatation with severely enlarged left atrium and severely abnormal left atrial volume index.� Mild MR,
pulmonary artery pressure 55 mmHg
Echo 08/09/2023: EF 30 to 35%, global hypokinesis, ICD wire in RV, normal pericardium
ECHO 04/25/24: EF 20 to 25%, global hypokinesis, mild concentric LVH, enlarged RV size and reduced RV function, severely dilated atria, MAC, moderate MR, mild TR, PAP 40 to 45 mmHg, IVC dilated and does not collapse, interatrial septum intact with no
evidence of shunt
Plan:
-Patient presented after fall and found to have left hip fracture, which will repeat require operative repair
-Pradaxa on hold. Tentatively planned for OR 05/03
-Holding diuretics at this time. CXR without evidence of pleural effusions/CHF. Had been on p.o. Lasix 40 mg twice daily, however patient had increased dose to 80 mg twice daily due to abdominal distention and then was prescribed metolazone 2.5 mg x
1 over the weekend for continued bloating with marked diuresis. proBNP improved compared to prior. Now with CAMILA. Will follow kidney function. will solidify diuretic dosing closer to DC, likely no metolazone
-Replete potassium
-echo 04/25 with further reduction in EF to 20-25%.
-EKG vpaced T waves more depressed with paced beats, likely stable compared to EKG from 04/24. repeat EKG in AM. trop 0.015. no CP. consider for OP ischemic eval once recovered
-BP/HR stable. continue coreg, amiodarone. holding OP candesartan, jardiance
-Status post [facility] completed in ER 05/01 with 100% atrial burden, 212 V sensing episodes, device with appropriate function.
-he is ok to proceed to OR as planned at elevated cardiovascular risk however given urgency of surgery, this risk is not prohibitive
-of note, patient just started on ozempic 04/27
Data Reviewed
-
EKG: Tracing Personally Visualized and interpreted
Radiology: Report Reviewed by me
Medical Tests (Nuc Med, Echo etc): Report Reviewed by me
Labs: Labs Reviewed by me
Old Records: Reviewed
--- NOTE | 2024-05-02 13:28 | W.PN.HOSP.TC ---
Today's Communication/Plan
-
left hip cephalomedullary nail fixation tomorrow
ASA, hold pradaxa
Monitor BMP while weaning back on diuresis
Assessment / Plan
Assessment / Plan
General: Other (74y M in mild distress due to pain.)
HEENT: Moist mucous membranes and PERRLA
Respiratory: Clear; No Wheezes, Rales or Rhonchi
Cardiac: S1/S2, Irregular Rhythm and Tachycardia; No Murmur
GI: Soft, Non Tender, Non Distended and Normal Bowel Sounds
Musculoskeletal: No Clubbing, No Cyanosis, No Edema and Other (Moderate varicose veins. LLE straightened / externally rotated.)
Neuro: AO x 3 and Nonfocal/grossly intact
A/P: Patient is a 74y M with PMH significant fr A-Fib, CHF and recent CVA who presents to ED complaining of L hip pain s/p fall at home.
Left Femur Fracture
- Patient moderate to high risk cardiac risk for low risk procedure.
- Bedrest / pain control at present.
- Ortho consulted for eventual operative repair.
- left hip cephalomedullary nail fixation tentatively tomorrow
- Pradaxa washout
Fall at Home
- Mechanism of fall is not entirely clear - but seems related to ahnb-xnu-aoiw or L weakness; appears to be mechanical
- no obvious stroke symptoms
- No neurologic symptoms / complaints.
- Monitor on telemetry for now.
CAMILA
- Baseline of 1.
- Suspect due to brisk diuresis over the past 2 days +/- new initiation of Ozempic.
- Would hold further Ozempic.
- Hold ARB and Jardiance acutely.
Persistent Atrial Fibrillation with Rapid Ventricular Response
- Continue usual home medications including amiodarone.
- Continue carvedilol and give usual PM dose now.
- Hold Pradaxa acutely given plans for OR.
- Cardiology evaluation
- PPM / AICD interrogated in the ED and shows only persistent A-Fib since October.
Chronic HFrEF
- Stable at present. Metolazone and double-dose Lasix taken on Tuesday with effective diuresis.
- Weight is now lower than it has been in some time.
- resume usual 80mg BID dosing in the AM.
- Hold Jardiance for now.
- Hold further metolazone for now.
- Follow I/Os, daily weights, etc.
- Adjust treatment as needed.
- Echo done last visit with EF = 20-25%.
- Cardiology evaluation as noted above.
ASCVD
Acute CVA
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
- No new therapies added at that time.
- Will begin ASA 81mg for now while Pradaxa on hold given proximity of CVA.
- Follow for any new neurologic symptoms / complaints.
Anxiety / Depression
- Stable. Continue Lexapro.
History of Thyroid Carcinoma
- s/p partial thyroidectomy.
- Thyroid nodule incidentally noted on recent MR imaging.
- Needs OP follow-up, especially given prior cancer history.
DVT Prophylaxis: SCDs while Pradaxa on hold.
Anticipated Discharge: > 48 hours
Subjective/Interval History
-
Date of Service: May 02, 2024
No acute events
Objective Data
-
Labs:
Laboratory Results
05/02/24
06:43
WBC 11.9 H
Hgb 16.4
Hct 45.9
Plt Count 364
PT 17.5 H
INR 1.45
APTT 50.2 H
Sodium 136
Potassium 3.5
Chloride 94 L
Carbon Dioxide 26
BUN 67 H
Creatinine 2.1 H
Glucose 117 H
Calcium 9.0
Vital Signs:
Vital Signs
Temp Pulse Resp BP Pulse Ox
98.1 F 95 14 120/78 95
05/02/24 07:34 05/02/24 11:45 05/02/24 11:45 05/02/24 11:45 05/02/24 11:45
I&O
05/01/24 05/02/24 05/03/24
06:59 06:59 06:59
Intake Total 240 / 240
Output Total 400 / 400
Balance -160 / -160
Review of Systems
-
History Source: Patient
All other systems: Not reviewed unless documented
Physical Exam
-
General: Well Developed, Well Nourished and No Apparent Distress
HEENT: Normocephalic and Atraumatic
Respiratory: Clear to Auscultation; Negative Wheezes or Rhonchi
Cardiac: Regular Rhythm and S1/S2; Negative Murmur
GI: Soft, Nontender, Nondistended and Normal Bowel Sounds
Musculoskeletal: No Clubbing, No Cyanosis and No Edema
Skin: Warm
Neuro: Awake
Data Reviewed
-
Diagnostic Radiology: Image personally visualized and interpreted and Report Reviewed by me
Labs: Labs Reviewed by me
[2024-05-02] MEDS: ROXICODONE 10 MG PO (14:45)
[2024-05-02] MEDS: COREG PO (20:51)
[2024-05-02] MEDS: SENOKOT 17.2 MG PO (20:52)
--- NOTE | 2024-05-02 22:14 | CON.ORTHO ---
Addendum entered and electronically signed by Jamie Snow MD 05/03/24 18:03:
I evaluated the patient at bedside and discussed with the patient and his daughter. I agree with the above note. The patient sustained a fall at home and landed on the left side on the asphalt. He had immediate pain and difficulty weightbearing.
He was brought to the emergency department where he was noted to have a left proximal femur fracture in the intertrochanteric region. We discussed the injury pattern and treatment options. We discussed cephalomedullary nail. We also discussed
nonoperative treatments but given the high morbidity with nonoperative treatment shared decision was to proceed with surgical treatment. He recently had a CHF exacerbation as well as a TIA versus stroke that he recovered from. All questions were
answered.
Original Note:
Consultation
-
Date/Time Consultation Requested: 05/01/20242127
Date/Time Consultation Performed: 05/02/2024 0800
Requesting Provider: Dr. Cale Foote
Performing Provider: CORTNEY Aguilar, Dr. Alejandro Sawyer
Reason for Consultation: Left hip fracture
Consultation - Orthopedics
History
74M presented to ER after a ground-level fall with direct impact of his left hip. He has issues more recently with his balance and ambulation, but is ambulatory at baseline with assistive devices and independent ADLS. Denies other injuries
sustained. Denies paresthesias.
Allergies / Home Medications
Past Medical History:
Persistent Atrial Fibrillation
Chronic HFrEF
Hypertension
VERNON on CPAP
Thyroid Carcinoma
Anxiety / Depression
Obesity
Past Surgical History: Reports Other
Additional Past Surgical History:
PVI Ablation x 4
MAZE Procedure
PPM / AICD Placement
Partial Thyroidectomy
Social Hx: independant ADLS, community ambulator with assistive devices
Family Hx: noncontributory
Relative 12 point ROS: negative
Meds: see list
Allergies: see list
Allergy/AdvReac Type Severity Reaction Status Date / Time
spironolactone Allergy gynecomasti Verified 04/24/24 21:07
[From Aldactone] a
�Medication �Instructions �Recorded
dabigatran etexilate 150 mg 150 mg PO BID Blood clot 02/11/21
capsule (Pradaxa) prevention/tx
mmbchdrgbnu-jikaqjvyr-fbv C-Mn 500 1 cap PO BID Supplement 06/09/23
mg-400 mg capsule (Glucosamine
Chondroitin Maximum Strength)
carvedilol 25 mg tablet (Coreg) 50 mg (2 x 25 mg) PO BID 06/10/23
Arrhythmia #120 tabs
candesartan 8 mg tablet 8 mg PO DAILY Blood pressure #90 08/09/23
tabs
cholecalciferol (vitamin D3) 50 50 mcg PO DAILY Supplement 04/24/24
mcg (2,000 unit) tablet
empagliflozin 10 mg tablet 10 mg PO DAILY DIABETES 04/24/24
(Jardiance)
semaglutide 0.25 mg or 0.5 mg (2 0.25 mg SC MO diabetes 04/24/24
mg/3 mL) subcutaneous pen injector
(Ozempic)
zinc sulfate 50 mg zinc (220 mg) 50 mg PO DAILY Supplement 04/24/24
tablet
amiodarone 100 mg tablet 100 mg PO DAILY Arrhythmia 04/25/24
escitalopram oxalate 20 mg tablet 20 mg PO DAILY #0 tabs 04/26/24
atorvastatin 40 mg tablet 40 mg PO DAILY High Cholesterol 05/01/24
furosemide 40 mg tablet 80 mg PO BID Fluid 05/01/24
retention/Swelling
metolazone 2.5 mg tablet 2.5 mg PO DAILYPRN PRN weight 05/01/24
gain/swelling
Vital Signs / Lab Results
Temp Pulse Resp BP Pulse Ox
97.3 F 90 18 88/62 94
05/02/24 19:34 05/02/24 19:34 05/02/24 19:34 05/02/24 20:51 05/02/24 19:34
PHysical Exam:
WNWD NAD RICO
MSK: focused exam of the LLE shows skin is intact; NVI L3-S1. Left loeg is shortened and externally rotated. knee is nontender
Imaging: Xrays taken of the left hip show an impacted and displaced intertrochanteric femur fracture.
05/02/24 06:43
05/02/24 06:43
Assessment / Plan
74M community ambulator with assistive devices with a left displaced intertrochanteric femur fracture DOI 01 May 2024
Imaging was shown and reviewed with the patient. The condition/injury and respective operative and non-operative interventions were reviewed with the patient to include the risks, benefits, rehabilitation, and prognosis for each. The
treatment/operative technique, follow-up, rehabilitation, and prognosis were reviewed with the patient. Surgical risks were discussed which include but not limited to infection, blood loss, CRPS, possible need for further surgeries, damage to local
structures, and possible loss of life or limb. After thorough counseling and answering all questions, the patient wished to proceed with operative intervention of left hip cephalomedullary nail fixation [address] Snow. The patient
verified understanding of the treatment plan and all questions were answered to satisfaction.
-NWB LLE
-NPO @ [facility]
-ABX OCTOR
[2024-05-03] VITALS (16 sets, daily range): BP systolic 82–122; BP diastolic 56–94; BMI 29.3; BMI 28.5
[2024-05-03] MEDS: COREG 25 MG PO (03:17)
[2024-05-03] MEDS: ROXICODONE 10 MG PO ×2 (03:24→20:48)
[2024-05-03 08:16] LABS: Hematocrit 45.7 % (39.0-52.0); Hemoglobin 16.6 g/dL (13.0-18.0); Mean Corp Hgb Conc. 36.3 g/dL (33.0-37.0); Mean Corpuscular Hgb 31.6 pg (27.0-31.0); Mean Platelet Volume 9.4 fL (7.4-10.4); Platelet Count 313 10^3/uL (130-400); Red Blood Cell Count 5.25 10^6/uL (4.70-6.10); Red Cell Dist. Width 14.3 % (11.5-14.5); White Blood Cell Count 11.4 10^3/uL (4.8-10.8)
--- NOTE | 2024-05-03 08:31 | W.PN.UPDATE ---
Update Note
Progress Note Update
Patient is scheduled to proceed with left hip gamma nail under direction of Dr. Snow later this afternoon.
-N.p.o. after midnight.
-Nonweightbearing until surgery.
-IV antibiotics and irrigation on-call to the OR.
-Procedure, risks, benefits, and recovery process explained in detail with patient. Consent for surgery and blood transfusion if necessary signed by patient. Placed in chart. Left hip marked as correct operative site.
[2024-05-03 08:38] LABS: ALT (SGPT) 16 U/L (0-50); AST (SGOT) 21 U/L (17-59); Albumin 4.2 g/dl (3.5-5.0); Alkaline Phosphatase 88 U/L (38-126); Blood Urea Nitrogen 65 mg/dl (9-20); Calcium 9.3 mg/dl (8.4-10.2); Carbon Dioxide 29 mmol/L (22-30); Chloride 94 mmol/L (98-107); Estimated Creatinine Clearance 41 ml/min; Glucose 115 mg/dl (70-99); Potassium 3.2 mmol/L (3.5-5.1); Sodium 135 mmol/L (135-145); Total Bilirubin 2.3 mg/dl (0.2-1.3); Total Protein 7.1 g/dl (6.3-8.2); eGFR 42.04
[2024-05-03] MEDS: LASIX 80 MG PO (08:47)
[2024-05-03] MEDS: COREG 50 MG PO (08:47)
[2024-05-03] MEDS: LIPITOR 40 MG PO (08:47)
[2024-05-03] MEDS: TYLENOL 1000 MG PO ×2 (08:48→20:47)
[2024-05-03] MEDS: LEXAPRO 20 MG PO (08:48)
[2024-05-03] MEDS: PACERONE 100 MG PO (08:48)
--- NOTE | 2024-05-03 10:56 | W.PN.CARDCBS ---
Addendum entered and electronically signed by Josh Bustillo MD 05/03/24 14:54:
I saw and examined the patient.
The Acid Treater's note was reviewed and I agree with the note.
Comment:
GEN: No distress, awake, Ox3
HEENT: supple, anicteric, mmm
LUNGS: CTA, no wheezes/rales
CV: Irreg, S1/S2, 09/24 syst LSB, no gallop
ABD: soft, BS+, NT/ND
EXT: No edema
NEURO: Gross non-focal
SKIN: No rash
Plan:
He overall remains stable and is okay to proceed to the operating room.
Okay to continue Lasix 80 mg p.o. twice daily. Creatinine is improved down to 1.7
Continue to follow on telemetry.
Original Note:
Today's Communication / Plan
-
OR today
replete K
continue po lasix. follow Cr
Impression / Plan
-
PCP: Leonides Cleaning MD
CDY: Juan Ramon Owens MD
IMPRESSION:
Fall
L hip fracture
CAMILA
Admission to 04/24-04/26/24 for CVA
Non ischemic cardiomyopathy
Chronic systolic HFrEF, 20-25%
s/p Med[employer] Bi-V 06/09/23
Persistent AFib
multiple prior PVIs (2010, 2012, 2018, 2020)
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
s/p CV 10/2022, 07/15/2023
Failed tikosyn (unable to maintain sinus rhythm)
Chronic OAC with Pradaxa
History of CVA
HTN
Anxiety
VERNON
Thyroid CA, s/p partial thyroidectomy
Echo 05/20/2023: moderately reduced LV systolic function with ejection fraction 30 to 35%.� Mild concentric LV.� Normal RV size.� Biatrial dilatation with severely enlarged left atrium and severely abnormal left atrial volume index.� Mild MR,
pulmonary artery pressure 55 mmHg
Echo 08/09/2023: EF 30 to 35%, global hypokinesis, ICD wire in RV, normal pericardium
ECHO 04/25/24: EF 20 to 25%, global hypokinesis, mild concentric LVH, enlarged RV size and reduced RV function, severely dilated atria, MAC, moderate MR, mild TR, PAP 40 to 45 mmHg, IVC dilated and does not collapse, interatrial septum intact with no
evidence of shunt
Plan:
-Patient presented after fall and found to have left hip fracture. planned for OR today
-Pradaxa on hold in prep for OR
-remains on po lasix 80mg BID. Had been on p.o. Lasix 40 mg twice daily, however patient had increased dose to 80 mg twice daily due to abdominal distention and then was prescribed metolazone 2.5 mg x 1 over the weekend for continued bloating with
marked diuresis. proBNP improved compared to prior. Now with CAMILA, Cr downtrending, 1.7 on 05/03. will solidify diuretic dosing closer to DC, likely no metolazone
-Replete potassium
-echo 04/25 with further reduction in EF to 20-25%.
-BP/HR stable. continue coreg, amiodarone. holding OP candesartan, jardiance, will resume post op as able
-Status post [facility] completed in ER 05/01 with 100% afib burden, 212 V sensing episodes, device with appropriate function.
-he is ok to proceed to OR as planned at elevated cardiovascular risk however given urgency of surgery, this risk is not prohibitive
-of note, patient just started on ozempic 04/27
-d/w nursing
Progress Note - Spooler Operator Automatic
Subjective
Date of Service: May 03, 2024
reports some anxiety overnight, did not sleep well. no CP, SOB. remains with L hip pain with movement
Objective
Labs:
08/15/24 07:26
05/03/24 07:25
Labs
Hgb 16.6 g/dL (13.0-18.0) 05/03/24 07:26
Hct 45.7 % (39.0-52.0) 05/03/24 07:26
Plt Count 313 10^3/uL (130-400) 05/03/24 07:26
PT 17.5 Sec (11.4-14.6) H 05/02/24 06:43
INR 1.45 05/02/24 06:43
APTT 50.2 Sec (23.4-35.0) H 05/02/24 06:43
Sodium 135 mmol/L (135-145) 05/03/24 07:25
Potassium 3.2 mmol/L (3.5-5.1) L 05/03/24 07:25
BUN 65 mg/dl (9-20) H 05/03/24 07:25
Creatinine 1.7 mg/dL (0.7-1.3) H 05/03/24 07:25
Glucose 115 mg/dl (70-99) H 05/03/24 07:25
Troponins
05/01/24
17:13
Troponin I 0.015
Vital Signs and I&O:
Vital Signs
Temp Pulse Resp BP Pulse Ox
98.2 F 99 14 113/81 92
05/03/24 08:31 05/03/24 08:31 05/03/24 08:31 05/03/24 08:47 05/03/24 08:31
Vital Signs
Temp Pulse Resp BP Pulse Ox
98.2 F 99 14 113/81 92
05/03/24 08:31 05/03/24 08:31 05/03/24 08:31 05/03/24 08:47 05/03/24 08:31
Intake & Output
05/01/24 05/02/24 05/03/24 05/04/24
07:59 07:59 07:59 07:59
Intake Total 240 / 240 960 / 960
Output Total 400 / 400 1300 / 1300
Balance -160 / -160 -340 / -340
Physical Exam
Physical Exam
GEN: No distress, awake, alert, oriented x3
HEENT: supple, anicteric, mmm, eomi
LUNGS: CTA B/L, no wheezes/rales
CV: Irreg, S1/S2, 1/6 syst LSB
ABD: soft, BS+, NT/ND
EXT: No cyanosis, clubbing, edema
NEURO: Gross non-focal
SKIN: Warm, pink, dry. No rash
[2024-05-03] MEDS: KCL 270 MEQ IV (11:50)
--- NOTE | 2024-05-03 12:51 | W.PN.HOSP.TC ---
Today's Communication/Plan
-
Monitor BMP with adjusted diuretics
OR today
K repletion
Assessment / Plan
Assessment / Plan
General: Other (74y M in mild distress due to pain.)
HEENT: Moist mucous membranes and PERRLA
Respiratory: Clear; No Wheezes, Rales or Rhonchi
Cardiac: S1/S2, Irregular Rhythm and Tachycardia; No Murmur
GI: Soft, Non Tender, Non Distended and Normal Bowel Sounds
Musculoskeletal: No Clubbing, No Cyanosis, No Edema and Other (Moderate varicose veins. LLE straightened / externally rotated.)
Neuro: AO x 3 and Nonfocal/grossly intact
A/P: Patient is a 74y M with PMH significant fr A-Fib, CHF and recent CVA who presents to ED complaining of L hip pain s/p fall at home.
Left Femur Fracture
- Patient moderate to high risk cardiac risk for low risk procedure.
- Bedrest / pain control at present.
- Ortho consulted for eventual operative repair.
- left hip cephalomedullary nail fixation today
- Pradaxa washout
Fall at Home
- Mechanism of fall is not entirely clear - but seems related to [id number] or L weakness; appears to be mechanical
- no obvious stroke symptoms
- No neurologic symptoms / complaints.
- Monitor on telemetry for now.
Hypokalemia
- Monitor and replete
CAMILA
- Baseline of 1. Improving
- Suspect due to brisk diuresis over the past 2 days +/- new initiation of Ozempic.
- Would hold further Ozempic.
- Hold ARB and Jardiance acutely.
Persistent Atrial Fibrillation with Rapid Ventricular Response
- Amiodarone
- Continue carvedilol
- Hold Pradaxa for OR
- Cardiology
- PPM / AICD interrogated in the ED and shows only persistent A-Fib since October.
Chronic HFrEF
- Weight is now lower than it has been in some time.
- resume usual 80mg BID
- Hold Jardiance for now.
- Hold further metolazone for now.
- Follow I/Os, daily weights, etc.
- Adjust treatment as needed.
- Echo done last visit with EF = 20-25%.
- Cardiology evaluation as noted above.
ASCVD
Acute CVA
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
- Will begin ASA 81mg for now while Pradaxa on hold given proximity of CVA.
Anxiety / Depression
- Stable. Continue Lexapro.
History of Thyroid Carcinoma
- s/p partial thyroidectomy.
- Thyroid nodule incidentally noted on recent MR imaging.
- Needs OP follow-up, especially given prior cancer history.
DVT Prophylaxis: SCDs while Pradaxa on hold.
Anticipated Discharge: 24 - 48 hours
Subjective/Interval History
-
Date of Service: May 03, 2024
No acute events
Objective Data
-
Labs:
Laboratory Results
05/03/24 05/03/24
07:25 07:26
WBC 11.4 H
Hgb 16.6
Hct 45.7
Plt Count 313
Sodium 135
Potassium 3.2 L
Chloride 94 L
Carbon Dioxide 29
BUN 65 H
Creatinine 1.7 H
Glucose 115 H
Calcium 9.3
Total Bilirubin 2.3 H
AST 21
ALT 16
Alkaline Phosphatase 88
Vital Signs:
Vital Signs
Temp Pulse Resp BP Pulse Ox
97.4 F 91 14 94/64 92
05/03/24 11:39 05/03/24 11:39 05/03/24 11:39 05/03/24 11:39 05/03/24 11:39
I&O
05/02/24 05/03/24 05/04/24
06:59 06:59 06:59
Intake Total 240 / 240 960 / 960
Output Total 400 / 400 1300 / 1300
Balance -160 / -160 -340 / -340
Review of Systems
-
History Source: Patient
All other systems: Not reviewed unless documented
Physical Exam
-
General: Well Developed, Well Nourished and No Apparent Distress
HEENT: Normocephalic and Atraumatic
Respiratory: Clear to Auscultation; Negative Wheezes or Rhonchi
Cardiac: Regular Rhythm and S1/S2; Negative Murmur
GI: Soft, Nontender, Nondistended and Normal Bowel Sounds
Musculoskeletal: No Clubbing, No Cyanosis and No Edema
Skin: Warm
Neuro: Awake
Data Reviewed
-
Diagnostic Radiology: Image personally visualized and interpreted and Report Reviewed by me
Labs: Labs Reviewed by me
--- NOTE | 2024-05-03 13:31 | CM ---
Patient for L femur fx repair today. Will await therapy evaluation for discharge plan of care.
[2024-05-03] MEDS: LASIX PO (15:17)
[2024-05-03] MEDS: TYLENOL PO (15:18)
--- NOTE | 2024-05-03 18:09 | OR.RPT ---
Operative Report
Operative Report
Orthopaedic Surgery Operative Note
DATE OF OPERATION: 05/03/2024
PREOPERATIVE DIAGNOSIS: Intertrochanteric Hip Fracture, Left
POSTOPERATIVE DIAGNOSIS: Same
OPERATION PERFORMED: Left intertrochanteric hip fracture open reduction and internal fixation with cephalomedullary nail
SURGEON: Jamie Snow MD
REPORT ANALYST: NA
ANESTHESIA: General
COMPLICATIONS: None.
ESTIMATED BLOOD LOSS: 200 mL.
DRAINS: None
SPECIMEN: None
IMPLANTS:
Marty Gamma Cephalomeduallary nail, 11mm short nail
[place] lag screw, 105 mm.
5.0mm distal interlocking screw x1
INDICATIONS FOR PROCEDURE
74M presented to the ED after a fall. Xrays showed displaced intertrochanteric femur fracture. I discussed treatment options with the patient and family including nonoperative and operative treatments. We reviewed the natural history of the problem,
as well as the risks, benefits, and alternatives of various treatment options. Shared decision was to proceed with surgical treatment. The patient and family understood the risks including, but were not limited to, bleeding, infection, failure to
relieve pain, more pain than preop, damage to blood vessels and nerves, need for reoperation, mechanical failure of the implants, wound healing problems, stiffness, instability, blood clot, pulmonary embolism, myocardial infarction, pneumonia,
arrhythmia, CVA, and . All questions were answered, and informed consent was obtained.
PROCEDURE IN DETAIL: The patient was identified in the preoperative holding area. The operative limb was identified as the operative site and marked with my initials. The patient was transferred to the operating room. General anesthesia was
performed. The patient was transferred to the [facility] operative table. IV antibiotics and tranexamic acid were given. All bony prominences were well padded. The operative limb was prepped and draped in the usual sterile fashion.
We performed a surgical time-out. A 1.6mm (0.65'') jovany wire was placed in the distal femur, and traction bow was applied. This was well padded over the knee. 15lbs of skeletal traction was applied. The fracture was reduced with the aid of
flouroscopy. A small lateral incision was made, and a bone hook was used to aid reduction. The guide wire was placed over the medial aspect of the tip of the greater trochanter. The guide wire was advanced and checked for appropriate position on AP
and lateral. The pin guide wire was advanced to the level of the lesser trochanter. Incision was made about the wire. The opening reamer was used to open the starting point over the guide wire. The nail was then inserted over the guidewire down to
the appropriate depth. The guide wire was removed. The targeting guide was assembled, and a lateral incision was made for lag screw placement. A guide pin was advanced into the femoral head. Position was checked on AP and lateral. The length was
measured to be 110mm. The drill was set to the appropriate depth, and the lag screw path was drilled over the guide wire. The lag screw was then inserted into the femoral head just distal to the subchondral bone. The locking screw was then placed
into the top of the nail. Skeletal traction was removed, and a single distal interlocking screw was placed into the static interlocking hole with through the targeting guide. Final fluoroscopy shots were performed which showed appropriate position
and length of the implant and anatomic reduction of the fracture.
The incisions were copiously irrigated with 3L normal saline. The deep fascial layers were closed with 0 PDS. The dermal layer closed with 2-0 PDS running. The skin was closed with 3-0 monocryl. Skin glue was applied as well as sterile dressings.
The patient was awoken from anesthesia without complication.
The patient awoke from anesthesia without difficulty. Sponge and instrument counts were correct x2 at the end of the case.
I was present and participated in the entire procedure. The patient was sent to the recovery room in stable condition.
Post operative plan:
WBAT
PT/OT
Pain control
Delirium prevention
ABX: Ancef x24 hours
DVT: Resume pradaxa
Lorne Snow MD
--- NOTE | 2024-05-03 18:25 | W.PN.UPDATE ---
Addendum entered and electronically signed by Tim Jacobs MD 05/03/24 18:27:
Cont Levophed gtt--> MAP >65. Lobo catheter in.
Original Note:
Update Note
Progress Note Update
Cross-cover-->asked to transfer to ICU for postop complications.
[2024-05-03] MEDS: COREG PO (20:17)
[2024-05-03] MEDS: SENOKOT PO (20:17)
--- NOTE | 2024-05-03 21:00 | PTCARENOTE ---
recd patient from PACU around 193. pt oriented x3, c/o L hip pain. V paced on monitor, afebrile. + b/l DP pulses. afebrile. on 2L NC, denies SOB. lungs diminished. dinner at bedside, pt set up to eat, issues noted. pickard catheter in place. levo gtt
at 1mcg, titrated off, then restarted to maintain MAP >65 - see flowsheet. R radial arterial line in place, leveled and zeroed. PRN pain meds given. aquacell x2 to L hip, gauze/tegaderm x2 to L knee, no drainage noted. at bedside, both her and
pt updated on plan of care. labs sent. call rucker within reach.
[2024-05-03 21:24] LABS: Blood Urea Nitrogen 62 mg/dl (9-20); Carbon Dioxide 25 mmol/L (22-30); Chloride 96 mmol/L (98-107); Estimated Creatinine Clearance 52 ml/min; Glucose 237 mg/dl (70-99); Magnesium 2.4 mg/dl (1.6-2.3); Potassium 4.1 mmol/L (3.5-5.1); Sodium 132 mmol/L (135-145); eGFR 53.07
[2024-05-03] MEDS: ANCEF 5 IV (23:56)
[2024-05-04] VITALS (27 sets, daily range): BP systolic 93–130; BP diastolic 58–106; PULSE 95; O2SAT 95–96; BMI 28.5
--- NOTE | 2024-05-04 00:39 | PTCARENOTE ---
neurovascular checks unchanged, pt denies pain at this time, no drainage to aquacells noted. levo gtt infusing. call rucker within reach.
[2024-05-04 04:31] LABS: Hemoglobin 14.9 g/dL (13.0-18.0); Mean Corp Hgb Conc. 36.3 g/dL (33.0-37.0); Mean Corpuscular Hgb 31.2 pg (27.0-31.0); Mean Platelet Volume 9.3 fL (7.4-10.4); Platelet Count 368 10^3/uL (130-400); Red Blood Cell Count 4.77 10^6/uL (4.70-6.10); Red Cell Dist. Width 14.4 % (11.5-14.5); White Blood Cell Count 13.1 10^3/uL (4.8-10.8)
[2024-05-04 04:41] LABS: INR 1.33; PT 16.5 Sec (11.4-14.6)
[2024-05-04 04:42] LABS: APTT 39.2 Sec (23.4-35.0)
[2024-05-04 04:56] LABS: ALT (SGPT) 14 U/L (0-50); AST (SGOT) 22 U/L (17-59); Albumin 3.7 g/dl (3.5-5.0); Alkaline Phosphatase 82 U/L (38-126); Blood Urea Nitrogen 62 mg/dl (9-20); Calcium 9.3 mg/dl (8.4-10.2); Carbon Dioxide 31 mmol/L (22-30); Chloride 96 mmol/L (98-107); Estimated Creatinine Clearance 48 ml/min; Glucose 180 mg/dl (70-99); Magnesium 2.5 mg/dl (1.6-2.3); Potassium 3.9 mmol/L (3.5-5.1); Sodium 136 mmol/L (135-145); Total Bilirubin 1.5 mg/dl (0.2-1.3); Total Protein 6.8 g/dl (6.3-8.2); eGFR 48.85
[2024-05-04] MEDS: LEVOPHED 250 IV (05:42)
--- NOTE | 2024-05-04 07:23 | CON.INTV ---
Consultation
Consultation Request
Date/Time Consultation Requested: 05/04/24
Date/Time Consultation Performed: 05/04/24
Performing Provider: Popeye
Reason for Consultation: ICU
Medical History
-
History of Present Illness:
Patient is a 74-year-old male with previous history of A-fib, heart failure with reduced EF, recent CVA (04/24-04/26) presenting to ED complaining of left hip pain status post mechanical fall. Of note, patient also noticed fluid retention and was in
CHF exacerbation, admitted 05/01/2024 to telemetry. Underwent planned ORIF of left hip by orthopedic surgery on 05/03/2024, developed postoperative hypotension, requiring pressors. Patient is now transferred to ICU for further management.
Past Medical History
Past Medical History: Other (see list below)
Social History
Tobacco: Former Smoker
Alcohol: None
Drug: None
Family History
Family History: Reviewed & Not Pertinent
Allergies / Home Medications
Allergies
Allergy/AdvReac Type Severity Reaction Status Date / Time
spironolactone Allergy gynecomasti Verified 04/24/24 21:07
[From Aldactone] a
Home Medications
�Medication �Instructions �Recorded �Confirmed �Last Taken �Type
dabigatran etexilate 150 mg 150 mg PO BID Blood clot 02/11/21 05/01/24 05/01/24 History
capsule (Pradaxa) prevention/tx
xflucjixada-yzztoegek-xpp C-Mn 500 1 cap PO BID Supplement 06/09/23 05/01/24 05/01/24 History
mg-400 mg capsule (Glucosamine
Chondroitin Maximum Strength)
carvedilol 25 mg tablet (Coreg) 50 mg (2 x 25 mg) PO BID 06/10/23 05/01/24 05/01/24 Rx
Arrhythmia #120 tabs
candesartan 8 mg tablet 8 mg PO DAILY Blood pressure #90 08/09/23 05/01/24 05/01/24 Rx
tabs
cholecalciferol (vitamin D3) 50 50 mcg PO DAILY Supplement 04/24/24 05/01/24 05/01/24 History
mcg (2,000 unit) tablet
empagliflozin 10 mg tablet 10 mg PO DAILY DIABETES 04/24/24 05/01/24 05/01/24 History
(Jardiance)
semaglutide 0.25 mg or 0.5 mg (2 0.25 mg SC MO diabetes 04/24/24 05/01/24 04/30/24 History
mg/3 mL) subcutaneous pen injector
(Ozempic)
zinc sulfate 50 mg zinc (220 mg) 50 mg PO DAILY Supplement 04/24/24 05/01/24 05/01/24 History
tablet
amiodarone 100 mg tablet 100 mg PO DAILY Arrhythmia 04/25/24 05/01/24 05/01/24 History
escitalopram oxalate 20 mg tablet 20 mg PO DAILY #0 tabs 04/26/24 05/01/24 05/01/24 Rx
atorvastatin 40 mg tablet 40 mg PO DAILY High Cholesterol 05/01/24 05/01/24 05/01/24 History
furosemide 40 mg tablet 80 mg PO BID Fluid 05/01/24 05/01/24 05/01/24 History
retention/Swelling
metolazone 2.5 mg tablet 2.5 mg PO DAILYPRN PRN weight 05/01/24 05/01/24 04/28/24 History
gain/swelling
Review of Systems
-
History Source: Patient
All other systems: Negative unless noted
Vitals / Labs / Diagnostic Testing
Vital Signs
Temp Pulse Resp BP Pulse Ox
97.9 F 112 12 118/94 94
05/04/24 04:10 05/04/24 06:00 05/04/24 06:00 05/04/24 06:00 05/04/24 06:00
Lab Data
05/04/24 04:08
05/04/24 04:08
Laboratory Results
05/04/24
04:08
PT 16.5 H
INR 1.33
APTT 39.2 H
Diagnostic Testing:
Physical Exam
-
HEENT: Normocephalic, Anicteric and Moist Mucous Membranes
Cardiovascular: S1/S2 and Regular Rhythm
Respiratory: Clear and Non-Labored Respirations
GI: Soft, Distended (obese), Non Tender and Normal Bowel Sounds
Neurology: Awake, Alert, Oriented, AO x 3 and No Motor Deficits
Skin: Warm, Dry and Good Color
General: Comfortable and Other (NAD)
Assessment
-
Patient is a 74-year-old male with previous history of A-fib, heart failure with reduced EF, recent CVA (04/24-04/26) presenting to ED complaining of left hip pain status post mechanical fall. Of note, patient also noticed fluid retention and was in
CHF exacerbation, admitted 05/01/2024 to telemetry. Underwent planned ORIF of left hip by orthopedic surgery on 05/03/2024, developed postoperative hypotension, requiring pressors. Patient is now transferred to ICU for further management.
Postop hypotension
Left intertrochanteric hip fracture s/p open reduction and internal fixation with cephalomedullary nail 05/03/24
Acute HFrEF exacerbation, probNP
s/p mechanical fall
Conditions present BOX PERSON
VERNON/CSA on Titration study 10/03/21: AHI 42.9/153 central apneas, now on ASV
Follows with Dr Yuen
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
CHF EF=35% mild->moderate MR, mild LVH, stage 3 diastolic dysfunction (TTE 08/28/20)
Covid
Atrial fibrillation s/p ablation/CV x3
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
Hypertension
Basal cell carcinoma
TIA
Kidney stone
BPH
Arthritis
Lower back pain
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
Stroke 04/25/2024-04/26/2024
Varicocelectomy
Former smoker
Plan
No current signs of metabolic encephalopathy or MS changes/following commands
Denies pain at this time.
Pain/sedation: PRN
RASS goals: 0
Hemodynamically stable, not requiring pressors.
Cardiac history reviewed--HTN, Afib, CHF--hold meds until BP improved
D/c A line
Off pressors
Prior ECHO reviewed indicating EF 20-25% with reduced RV function
Cards following
Monitor on telemetry
Oxygen needs: stable on RA
Prior history of lung disease: VERNON/CSA, resume home PAP/ASV
Supplemental O2 as indicated to maintain sats > 89%
CXR/CT reviewed indicating no acute process
NPO, resume diet when able per surgery
Telephoner recommendations
Aspiration precautions, HOB > 30 degrees
Speech therapy eval can be considered if at elevated risk
GI prophylaxis if indicated
Creat at baseline, no history of renal disease
Void trials
Follow urine output, critical I/Os
Replete electrolytes as needed
No signs/symptoms suspicious for infectious etiology at this time
Observe off antibiotics for now
Follow fever trend, WBC count
CBC stable, no signs of bleeding or coagulopathy.
DVT prophylaxis as assessed based on risk, including mechanical SCDs
Can transfuse if indicated for Hb <7, plt < 10
INR WNL
H/o thyroid disease s/p surgery, can follow clinically
H/o diabetes, can continue on home meds, SS for coverage
Dispo: Transfer to [facility], we will sign off upon transfer.
Diagnostic Data
Chest X-Ray: 05/04/24- No active pulmonary process.
8/13/24- Lungs appear hypoinflated with resultant crowding of the bronchovascular markings. No evidence for consolidation radiographically.
Cardiomegaly with no findings to suggest pulmonary edema or pleural effusion.
CT Scan:
Echo: 04/25/24- Normal left ventricular size. Mild concentric left ventricular hypertrophy. Severely reduced left ventricular systolic function. Global hypokinesis. LV ejection fraction is 20-25% by visual estimation. Diastolic function indeterminate
due to atrial fibrillation. Enlarged right ventricular size. Reduced right ventricular systolic function. ICD wire seen in right ventricle. Severely dilated atria.
Mitral annular calcification. Moderate mitral regurgitation. Mild tricuspid regurgitation. Estimated pulmonary artery pressure of 40-45 mmHg assuming a right atrial pressure of 15 mmHg. The IVC is dilated and does not collapse. Interatrial septum is
intact with no evidence of shunting by color flow Doppler. When compared to prior limited study on 08/09/2023, there is interval worsening of LVEF from 35% to 20-25%.
PFT's:
Reports and relevant images were personally reviewed.
-----
Critical Care time 50 mins -- The patient is admitted for acute critical illness for the treatment of vital organ failure and/or prevention of further life-threatening conditions. Total care includes time spent in review of history, physical exam,
medications, hemodynamic/ventilator parameters, laboratory data, imaging and discussion with house staff, pharmacy, respiratory therapy, room service supervisor, and nursing.
[2024-05-04] MEDS: ANCEF 5 IV (07:27)
[2024-05-04] MEDS: COREG PO (07:29)
[2024-05-04] MEDS: TYLENOL 1000 MG PO ×3 (07:30→21:24)
[2024-05-04] MEDS: PACERONE 100 MG PO (07:30)
[2024-05-04] MEDS: LASIX 80 MG PO ×2 (07:30→15:41)
[2024-05-04] MEDS: LEXAPRO 20 MG PO (07:30)
[2024-05-04] MEDS: LIPITOR 40 MG PO (07:30)
--- NOTE | 2024-05-04 07:31 | W.PN.ORTHO ---
Today's Communication / Plan
-
74M POD1 L short CMN with Dr. Snow
WBAT with assistive devices as indicated
PT/OT/DC planning
Pain controlled with current regimen
Delirium prevention; doing well this AM
ABX: Ancef x24 hours
DVT: Resume pradaxa
Orthopedic surgery will continue to follow.
Assessment
.
Distal Motor Intact: Yes
Dressing:
Clean, dry and intact.
Assessment:
Flouroscopic imaging shows s/p reduction and short CMN fixation without evidence of hardware or osseous complication
Plan
.
Surgery / Date: 03 May 2024 L short CMN with Dr. Snow
Activity:
Out of bed.
PT/OT
Subjective
.
.:
Patient resting comfortably.
Vital Signs and Labs
.
Vital Signs and Labs:
Lab Results
05/04/24 04:08
05/04/24 04:08
Temp Pulse Resp BP Pulse Ox
97.9 F 105 20 103/86 97
05/04/24 04:10 05/04/24 07:24 05/04/24 07:24 05/04/24 07:24 05/04/24 07:24
PT 16.5 Sec (11.4-14.6) H 05/04/24 04:08
INR 1.33 05/04/24 04:08
--- NOTE | 2024-05-04 08:24 | PTCARENOTE ---
recd report at 0700. pt oriented x3, c/o L hip pain. V paced on monitor, afebrile. + b/l DP pulses. afebrile. on 2L NC, denies SOB. lungs diminished. tolerating breakfast. pickard catheter in place. levo gtt titrated off to maintain MAP >65. R radial
arterial line in place, leveled and zeroed. aquacell x2 to L hip, gauze/tegaderm x2 to L knee. Updated on plan of care. call rucker within reach.
--- NOTE | 2024-05-04 10:55 | W.PN.CARDCBS ---
Today's Communication / Plan
-
Doing surprisingly well postop day 1
Hemodynamically stable
Continue oral regimen,, anticoagulation when okay with surgery
Impression / Plan
-
PCP: Leonides Cleaning MD
CDY: Juan Ramon Owens MD
IMPRESSION:
Fall
L hip fracture
CAMILA
Admission to 04/24-04/26/24 for CVA
Non ischemic cardiomyopathy
Chronic systolic HFrEF, 20-25%
s/p Medtronic Bi-V 06/09/23
Persistent AFib
multiple prior PVIs (2010, 2012, 2018, 2020)
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
s/p CV 10/2022, 07/15/2023
Failed tikosyn (unable to maintain sinus rhythm)
Chronic OAC with Pradaxa
History of CVA
HTN
Anxiety
VERNON
Thyroid CA, s/p partial thyroidectomy
Echo 05/20/2023: moderately reduced LV systolic function with ejection fraction 30 to 35%.� Mild concentric LV.� Normal RV size.� Biatrial dilatation with severely enlarged left atrium and severely abnormal left atrial volume index.� Mild MR,
pulmonary artery pressure 55 mmHg
Echo 08/09/2023: EF 30 to 35%, global hypokinesis, ICD wire in RV, normal pericardium
ECHO 04/25/24: EF 20 to 25%, global hypokinesis, mild concentric LVH, enlarged RV size and reduced RV function, severely dilated atria, MAC, moderate MR, mild TR, PAP 40 to 45 mmHg, IVC dilated and does not collapse, interatrial septum intact with no
evidence of shunt
Plan:
Despite postoperative hypotension, he now looks well. Family member at bedside.
Continue amiodarone, atorvastatin, furosemide 80 mg twice daily and carvedilol as blood pressure will permit. Resume dabigatran when okay from surgical standpoint.
We will continue to follow.
Progress Note - Stick Puller
Subjective
Date of Service: May 04, 2024:
PMH/PSH/SH/FH: Reviewed
Allergies: Spironolactone
Outpatient medications: Amiodarone 100 mg a day, atorvastatin 40 mg a day, candesartan 8 mg a day, carvedilol 50 mg twice daily, dabigatran 150 mg twice daily, escitalopram 20 mg a day, furosemide 80 mg a day, Jardiance 10 mg a day, metolazone 2.5
mg as needed, Ozempic
Current medications: Amiodarone 100 mg a day, atorvastatin 40 mg a day, escitalopram 20 mg a day, acetaminophen, furosemide 80 mg p.o. twice daily, carvedilol 50 mg twice daily, candesartan on hold, dabigatran on hold, Jardiance on hold
ROS: Negative except as above
105/73, pulse 7, respirate 18, afebrile, weight is 95.3 kg, had been 98.5 kg, was 103 kg on April 24, Currently no distress, talkative, family member at bedside head neck exam unremarkable, lungs are clear, systolic murmur at bedside JVD okay,
abdomen benign extremities without much edema
Hemoglobin is 14.9 white count is 13.1, platelets 368, BUN/creatinine 62 and 1.5, potassium 3.9, creatinine had been 1.4 and as high as 2.3
EKG pending, last EKG was ventricularly paced, probable underlying A-fib
Objective
Labs:
05/04/24 04:08
05/04/24 04:08
Labs
Hgb 14.9 g/dL (13.0-18.0) 05/04/24 04:08
Hct 41.0 % (39.0-52.0) 05/04/24 04:08
Plt Count 368 10^3/uL (130-400) 05/04/24 04:08
PT 16.5 Sec (11.4-14.6) H 05/04/24 04:08
INR 1.33 05/04/24 04:08
APTT 39.2 Sec (23.4-35.0) H 05/04/24 04:08
Sodium 136 mmol/L (135-145) 05/04/24 04:08
Potassium 3.9 mmol/L (3.5-5.1) 05/04/24 04:08
BUN 62 mg/dl (9-20) H 05/04/24 04:08
Creatinine 1.5 mg/dL (0.7-1.3) H 05/04/24 04:08
Glucose 180 mg/dl (70-99) H 05/04/24 04:08
Troponins
05/01/24
17:13
Troponin I 0.015
Vital Signs and I&O:
Vital Signs
Temp Pulse Resp BP Pulse Ox
36.7 C 107 18 105/73 96
05/04/24 08:00 05/04/24 08:00 05/04/24 08:00 05/04/24 08:00 05/04/24 08:00
Vital Signs
Temp Pulse Resp BP Pulse Ox
36.7 C 107 18 105/73 96
05/04/24 08:00 05/04/24 08:00 05/04/24 08:00 05/04/24 08:00 05/04/24 08:00
Intake & Output
05/02/24 05/03/24 05/04/24 05/05/24
07:59 07:59 07:59 07:59
Intake Total 240 / 240 960 / 960 1288.8 / 1296.3 7.5 / 7.5
Output Total 400 / 400 1300 / 1300 1500 / 1500 450 / 450
Balance -160 / -160 -340 / -340 -211.2 / -203.7 -442.5 / -442.5
Physical Exam
Physical Exam
See above
[2024-05-04] MEDS: ROXICODONE 10 MG PO (10:56)
--- NOTE | 2024-05-04 11:18 | PTCARENOTE ---
Levophed off at 0800. Madelyn and pickard removed per protocol and order. PRN pain med administered for moderate pain. Assessment unchanged.
--- NOTE | 2024-05-04 11:28 | PTCARENOTE ---
Attempting to wean O2 but pt refusing-states it's not hurting him and it helps him breath.
[2024-05-04] MEDS: NOVOLOG FLEXPEN-LOW RESISTANCE SC ×2 (12:59→16:50)
--- NOTE | 2024-05-04 13:08 | CM ---
CM following re: discharge planning.
Revised pt's chart, met with pt and pt's son Shakir at bedside.
Pt is POD#1 s/p Left intertrochanteric hip fracture open reduction and internal fixation with cephalomedullary nail.
PT and OT evaluations noted - SNF level of care recommended.
Both pt and his son Shakir are aware, expressed their agreement. A list of SNFs provided. Following SNFs preferred: [facility], [facility], [facility], [facility]. A referral to above SNFs made. Awaiting for an auth.
Pt's primary insurance is [employer], an auth will require for SNF level of care. Pt has Medicare as secondary. IMM reviewed, placed on chart, pt has a copy.
D/C plan: preferred SNF.
CM will follow to assist ppt with discharge to a preferred and accepted SNF.
[2024-05-04 13:10] LABS: Glucose - Point of Care 124 mg/dl (70-99)
--- NOTE | 2024-05-04 15:04 | W.PN.HOSP.TC ---
Today's Communication/Plan
-
off pressors - dg
resume pradaxa
monitor hgb/bp
cards recs
Assessment / Plan
Assessment / Plan
General: Other (74y M in mild distress due to pain.)
HEENT: Moist mucous membranes and PERRLA
Respiratory: Clear; No Wheezes, Rales or Rhonchi
Cardiac: S1/S2, Irregular Rhythm and Tachycardia; No Murmur
GI: Soft, Non Tender, Non Distended and Normal Bowel Sounds
Musculoskeletal: No Clubbing, No Cyanosis, No Edema and Other (Moderate varicose veins. LLE straightened / externally rotated.)
Neuro: AO x 3 and Nonfocal/grossly intact
A/P: Patient is a 74y M with PMH significant fr A-Fib, CHF and recent CVA who presents to ED complaining of L hip pain s/p fall at home.
Left Femur Fracture
-POD1 L short CMN with Dr. Snow
-WBAT with assistive devices as indicated
-PT/OT/DC planning
-Pain controlled with current regimen
-Ancef x24 hours
- Resume pradaxa
Shock, Hypovolemic v cardiogenic
-occured post op
-off pressors this am - doing well
-ctm
f/u cards recs
-GDMT
Fall at Home
- Mechanism of fall is not entirely clear - but seems related to [id number] or L weakness; appears to be mechanical
- no obvious stroke symptoms
- No neurologic symptoms / complaints.
- Monitor on telemetry for now.
Hypokalemia
- Monitor and replete
CAMILA
- Baseline of 1. Improving
- Suspect due to brisk diuresis over the past 2 days +/- new initiation of Ozempic.
- Would hold further Ozempic.
- Hold ARB and Jardiance acutely.
Persistent Atrial Fibrillation with Rapid Ventricular Response
- Amiodarone
- Continue carvedilol
- resume pradaxa
- Cardiology
- PPM / AICD interrogated in the ED and shows only persistent A-Fib since October.
Chronic HFrEF
- Weight is now lower than it has been in some time.
- resume usual 80mg BID
- Hold Jardiance for now.
- Hold further metolazone for now.
- Follow I/Os, daily weights, etc.
- Adjust treatment as needed.
- Echo done last visit with EF = 20-25%.
- Cardiology evaluation as noted above.
ASCVD
Acute CVA
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
- stop asa, resume pradaxa
Anxiety / Depression
- Stable. Continue Lexapro.
History of Thyroid Carcinoma
- s/p partial thyroidectomy.
- Thyroid nodule incidentally noted on recent MR imaging.
- Needs OP follow-up, especially given prior cancer history.
DVT Prophylaxis: Pradaxa
Anticipated Discharge: Within 24 hours
Subjective/Interval History
-
Date of Service: May 04, 2024
required pressors post op, now off pressors since this am
Objective Data
-
Labs:
Laboratory Results
05/04/24
04:08
WBC 13.1 H
Hgb 14.9
Hct 41.0
Plt Count 368
PT 16.5 H
INR 1.33
APTT 39.2 H
Sodium 136
Potassium 3.9
Chloride 96 L
Carbon Dioxide 31 H
BUN 62 H
Creatinine 1.5 H
Glucose 180 H
Calcium 9.3
Total Bilirubin 1.5 H
AST 22
ALT 14
Alkaline Phosphatase 82
Vital Signs:
Vital Signs
Temp Pulse Resp BP Pulse Ox
97.8 F 82 16 111/80 96
05/04/24 11:31 05/04/24 12:00 05/04/24 12:00 05/04/24 12:00 05/04/24 12:00
I&O
05/03/24 05/04/24 05/05/24
06:59 06:59 06:59
Intake Total 960 / 960 1266.3 / 1288.8 30.0 / 30.0
Output Total 1300 / 1300 1500 / 1500 450 / 450
Balance -340 / -340 -233.7 / -211.2 -420.0 / -420.0
Review of Systems
-
History Source: Patient
All other systems: Not reviewed unless documented
Data Reviewed
-
Diagnostic Radiology: Image personally visualized and interpreted and Report Reviewed by me
Labs: Labs Reviewed by me
[2024-05-04 16:33] LABS: Glucose - Point of Care 131 mg/dl (70-99)
--- NOTE | 2024-05-04 18:04 | PTCARENOTE ---
Report given to RN on surgical floor. Pt assisted to new bed with 2 person assist and rolling walker. Escorted pt and to [id number]
--- NOTE | 2024-05-04 18:22 | PTCARENOTE ---
Pt transferred to 2S in bed. Full assessment completed. Telemetry applied. L thigh and knee DSGs C/D/I. LLE neurovascular assessment. WDL. Bed locked and in the lowest position, safety maintained. Oriented to room and call rucker. Family at bedside.
[2024-05-04] MEDS: COREG 50 MG PO (19:42)
[2024-05-04] MEDS: PRADAXA 150 MG PO (19:42)
[2024-05-04] MEDS: SENOKOT 17.2 MG PO (21:24)
[2024-05-05 00:21] LABS: Glucose - Point of Care 138 mg/dl (70-99)
[2024-05-05 06:00] VITALS: BMI 29.0
[2024-05-05 07:05] VITALS: BP 103/78
[2024-05-05 08:01] LABS: Glucose - Point of Care 127 mg/dl (70-99)
[2024-05-05] MEDS: NOVOLOG FLEXPEN-LOW RESISTANCE SC ×2 (08:03→16:50)
[2024-05-05] MEDS: COREG 50 MG PO (08:07)
[2024-05-05] MEDS: LIPITOR 40 MG PO (08:08)
[2024-05-05] MEDS: TYLENOL 1000 MG PO ×3 (08:08→21:17)
[2024-05-05] MEDS: PRADAXA 150 MG PO ×2 (08:08→20:09)
[2024-05-05] MEDS: PACERONE 100 MG PO (08:08)
[2024-05-05] MEDS: LEXAPRO 20 MG PO (08:08)
[2024-05-05] MEDS: LASIX 80 MG PO (08:08)
[2024-05-05] MEDS: ROXICODONE 10 MG PO ×2 (08:52→21:22)
[2024-05-05 08:59] LABS: Hematocrit 39.5 % (39.0-52.0); Hemoglobin 13.8 g/dL (13.0-18.0); Mean Corp Hgb Conc. 34.9 g/dL (33.0-37.0); Mean Corpuscular Volume 88.8 fL (80.0-94.0); Mean Platelet Volume 9.3 fL (7.4-10.4); Platelet Count 271 10^3/uL (130-400); Red Blood Cell Count 4.45 10^6/uL (4.70-6.10); Red Cell Dist. Width 14.4 % (11.5-14.5); White Blood Cell Count 12.8 10^3/uL (4.8-10.8)
[2024-05-05 10:01] LABS: ALT (SGPT) 12 U/L (0-50); AST (SGOT) 25 U/L (17-59); Albumin 3.6 g/dl (3.5-5.0); Alkaline Phosphatase 70 U/L (38-126); Blood Urea Nitrogen 58 mg/dl (9-20); Calcium 9.2 mg/dl (8.4-10.2); Carbon Dioxide 29 mmol/L (22-30); Chloride 95 mmol/L (98-107); Estimated Creatinine Clearance 52 ml/min; Glucose 107 mg/dl (70-99); Potassium 3.7 mmol/L (3.5-5.1); Sodium 133 mmol/L (135-145); Total Bilirubin 1.3 mg/dl (0.2-1.3); Total Protein 6.3 g/dl (6.3-8.2); eGFR 53.07
[2024-05-05 10:26] VITALS: BP 86/54; BP 86/65; BP 89/57
--- NOTE | 2024-05-05 11:18 | W.PN.ORTHO ---
Today's Communication / Plan
-
74M POD #2 L short CMN with Dr. Snow
WBAT with assistive devices as indicated
PT/OT
DC planning - SNF recommended after PT yesterday
Pain controlled with current regimen
Delirium prevention; doing better this AM, but still with some hallucinations
DVT: Resume pradaxa
Dressings to remain in place x 2 weeks.
F/u in 2 weeks for incision check and x-rays
Assessment
.
Distal Motor Intact: Yes
Dressing:
Clean, dry and intact.
Assessment:
74M POD #2 L short CMN with Dr. Snow
WBAT with assistive devices as indicated
PT/OT
DC planning - SNF recommended after PT yesterday
Pain controlled with current regimen
Delirium prevention; doing better this AM, but still with some hallucinations
DVT: Resume pradaxa
Dressings to remain in place x 2 weeks.
F/u in 2 weeks for incision check and x-rays
Plan
.
Surgery / Date: 03 May 2024 L short CMN with Dr. Snow
DVT Prophylaxis: Pradaxa
Activity:
Out of bed.
PT/OT
Discharge Plan: SNF
Subjective
.
.:
Patient resting comfortably in bed getting ready to do PT.
Vital Signs and Labs
.
Vital Signs and Labs:
Lab Results
05/05/24 08:36
05/05/24 08:36
Temp Pulse Resp BP Pulse Ox
97.2 F 86 16 103/78 95
05/05/24 07:05 05/05/24 08:08 05/05/24 07:05 05/05/24 08:08 05/05/24 08:00
PT 16.5 Sec (11.4-14.6) H 05/04/24 04:08
INR 1.33 05/04/24 04:08
Physical Exam
-
Left hip: Dressings with minimal drainage noted on proximal dressing. Minimal swelling about thigh. Calf soft and nontender to palpation. N/v intact distally.
[2024-05-05 11:40] VITALS: BP 89/56
--- NOTE | 2024-05-05 11:48 | W.PN.CARDCBS ---
Addendum entered and electronically signed by Marcellus Urena MD 05/05/24 14:07:
Keep k 4-5 and Mg 2-3
Continue current diuretic which is outpatient dosing
Maintain anticoagulation and amiodarone
We will arrange outpatient follow-up
Will sign off
Original Note:
Today's Communication / Plan
-
Replete potassium
Reduce carvedilol to 25 mg twice a day
Continue amiodarone, Lasix, dabigartan
Will arrange for outpatient cardiology follow-up
Impression / Plan
-
PCP: Leonides Cleaning MD
CDY: Juan Ramon Owens MD
IMPRESSION:
Presented 05/01/2024 with fall
L hip fracture
s/p Left intertrochanteric hip fracture open reduction and internal fixation with cephalomedullary nail05/03/2024
CAMILA
Admission to 04/24-04/26/24 for CVA
Non ischemic cardiomyopathy
Chronic systolic HFrEF, 20-25%
s/p Medtronic Bi-V 06/09/23
Persistent AFib
multiple prior PVIs (2010, 2012, 2018, 2020)
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
s/p CV 10/2022, 07/15/2023
Failed tikosyn (unable to maintain sinus rhythm)
Chronic OAC with Pradaxa
History of CVA
HTN
Anxiety
VERNON
Thyroid CA, s/p partial thyroidectomy
Echo 05/20/2023: moderately reduced LV systolic function with ejection fraction 30 to 35%.� Mild concentric LV.� Normal RV size.� Biatrial dilatation with severely enlarged left atrium and severely abnormal left atrial volume index.� Mild MR,
pulmonary artery pressure 55 mmHg
Echo 08/09/2023: EF 30 to 35%, global hypokinesis, ICD wire in RV, normal pericardium
ECHO 04/25/24: EF 20 to 25%, global hypokinesis, mild concentric LVH, enlarged RV size and reduced RV function, severely dilated atria, MAC, moderate MR, mild TR, PAP 40 to 45 mmHg, IVC dilated and does not collapse, interatrial septum intact with no
evidence of shunt
Plan:
Patient doing well on postop day 2 following Left intertrochanteric hip fracture open reduction and internal fixation with cephalomedullary nail 05/03/2024
Developed postoperative hypotension. Blood pressure has seemed to stabilize. Back on carvedilol. Blood pressure did drop with ambulation today. Will reduce Coreg to 25 mg twice a day. If BP drops on lower dose can consider further reducing it.
Continue amiodarone, atorvastatin, furosemide 80 mg twice daily.
Replete potassium, currently 3.7
Dabigatran resumed 05/04/2024. Hemoglobin stable at 13.8
CAMILA improved. Creatinine currently 1.4
Will arrange for outpatient cardiology follow-up.
Progress Note - Salmon Troll Fisher
Subjective
Date of Service: May 05, 2024
Patient seen and examined. Patient sitting up in chair. Reports he felt dizzy and lightheaded and blood pressure dropped upon standing up and sitting in chair. Otherwise he feels well from a cardiac standpoint.
Objective
Labs:
05/05/24 08:36
05/05/24 08:36
Labs
Hgb 13.8 g/dL (13.0-18.0) 05/05/24 08:36
Hct 39.5 % (39.0-52.0) 05/05/24 08:36
Plt Count 271 10^3/uL (130-400) D 05/05/24 08:36
PT 16.5 Sec (11.4-14.6) H 05/04/24 04:08
INR 1.33 05/04/24 04:08
APTT 39.2 Sec (23.4-35.0) H 05/04/24 04:08
Sodium 133 mmol/L (135-145) L 05/05/24 08:36
Potassium 3.7 mmol/L (3.5-5.1) 05/05/24 08:36
BUN 58 mg/dl (9-20) H 05/05/24 08:36
Creatinine 1.4 mg/dL (0.7-1.3) H 05/05/24 08:36
Glucose 107 mg/dl (70-99) H 05/05/24 08:36
Vital Signs and I&O:
Vital Signs
Temp Pulse Resp BP Pulse Ox
97.2 F 86 16 103/78 95
05/05/24 07:05 05/05/24 08:08 05/05/24 07:05 05/05/24 08:08 05/05/24 08:00
Vital Signs
Temp Pulse Resp BP Pulse Ox
97.2 F 86 16 103/78 95
05/05/24 07:05 05/05/24 08:08 05/05/24 07:05 05/05/24 08:08 05/05/24 08:00
Intake & Output
05/03/24 05/04/24 05/05/24 05/06/24
06:59 06:59 06:59 06:59
Intake Total 960 / 960 1266.3 / 1288.8 1250.0 / 1250.0
Output Total 1300 / 1300 1500 / 1500 1700 / 1700
Balance -340 / -340 -233.7 / -211.2 -450.0 / -450.0
Physical Exam
Physical Exam
GEN: No distress, awake, Ox3, sitting up in chair
HEENT: supple, anicteric, mmm
LUNGS: CTA, no wheezes/rales
CV: Reg, S1/S2, 1/6 syst murmur
ABD: soft, BS+, NT/ND
EXT: No edema, clubbing or cyanosis
NEURO: Gross non-focal
SKIN: No rash, warm, dry, pink
--- NOTE | 2024-05-05 12:04 | W.PN.HOSP.TC ---
Today's Communication/Plan
-
PT/OT
Pain Control
Monitor HgB
Pradaxa
Diuretics as per cards - monitoring BMP
Assessment / Plan
Assessment / Plan
General: Other (74y M in mild distress due to pain.)
HEENT: Moist mucous membranes and PERRLA
Respiratory: Clear; No Wheezes, Rales or Rhonchi
Cardiac: S1/S2, Irregular Rhythm and Tachycardia; No Murmur
GI: Soft, Non Tender, Non Distended and Normal Bowel Sounds
Musculoskeletal: No Clubbing, No Cyanosis, No Edema and Other (Moderate varicose veins. LLE straightened / externally rotated.)
Neuro: AO x 3 and Nonfocal/grossly intact
A/P: Patient is a 74y M with PMH significant fr A-Fib, CHF and recent CVA who presents to ED complaining of L hip pain s/p fall at home.
Left Femur Fracture
-POD2 L short CMN with Dr. Snow
-WBAT with assistive devices as indicated
-PT/OT/DC planning
-Pain controlled with current regimen
Dressings to remain in place x 2 weeks.
F/u in 2 weeks for incision check and x-rays
Shock, Hypovolemic v cardiogenic - resolved
-occured post op
-off pressors this am - doing well
-ctm
f/u cards recs
-GDMT
Delirium
-post op
-improving
Fall at Home
- Mechanism of fall is not entirely clear - but seems related to hflm-ygx-dmap or L weakness; appears to be mechanical
- no obvious stroke symptoms
- No neurologic symptoms / complaints.
- Monitor on telemetry for now.
Hypokalemia
- Monitor and replete
CAMILA
- Baseline of 1. Improving
- Suspect due to brisk diuresis over the past 2 days +/- new initiation of Ozempic.
- Would hold further Ozempic.
- Hold ARB and Jardiance acutely.
Persistent Atrial Fibrillation with Rapid Ventricular Response
- Amiodarone
- Continue carvedilol
- resume pradaxa
- Cardiology
- PPM / AICD interrogated in the ED and shows only persistent A-Fib since October.
Chronic HFrEF
- Weight is now lower than it has been in some time.
- resume usual 80mg BID
- Hold Jardiance for now.
- Hold further metolazone for now.
- Follow I/Os, daily weights, etc.
- Adjust treatment as needed.
- Echo done last visit with EF = 20-25%.
- Cardiology evaluation as noted above.
ASCVD
Acute CVA
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
- stop asa, resume pradaxa
Anxiety / Depression
- Stable. Continue Lexapro.
History of Thyroid Carcinoma
- s/p partial thyroidectomy.
- Thyroid nodule incidentally noted on recent MR imaging.
- Needs OP follow-up, especially given prior cancer history.
DVT Prophylaxis: Pradaxa
Anticipated Discharge: Within 24 hours
Subjective/Interval History
-
Date of Service: May 05, 2024
doing well post op- no acute events
Objective Data
-
Labs:
Laboratory Results
05/05/24
08:36
WBC 12.8 H
Hgb 13.8
Hct 39.5
Plt Count 271 D
Sodium 133 L
Potassium 3.7
Chloride 95 L
Carbon Dioxide 29
BUN 58 H
Creatinine 1.4 H
Glucose 107 H
Calcium 9.2
Total Bilirubin 1.3
AST 25
ALT 12
Alkaline Phosphatase 70
Vital Signs:
Vital Signs
Temp Pulse Resp BP Pulse Ox
97.2 F 86 16 103/78 95
05/05/24 07:05 05/05/24 08:08 05/05/24 07:05 05/05/24 08:08 05/05/24 08:00
I&O
05/04/24 05/05/24 05/06/24
06:59 06:59 06:59
Intake Total 1266.3 / 1288.8 1250.0 / 1250.0
Output Total 1500 / 1500 1700 / 1700
Balance -233.7 / -211.2 -450.0 / -450.0
Review of Systems
-
History Source: Patient
All other systems: Not reviewed unless documented
Data Reviewed
-
Diagnostic Radiology: Image personally visualized and interpreted and Report Reviewed by me
Labs: Labs Reviewed by me
[2024-05-05 12:22] LABS: Glucose - Point of Care 163 mg/dl (70-99)
[2024-05-05] MEDS: KCL 20 MEQ PO (12:31)
[2024-05-05] MEDS: NOVOLOG FLEXPEN-LOW RESISTANCE 1 UNITS SC (13:22)
[2024-05-05 15:00] VITALS: BP 103/64
[2024-05-05] MEDS: LASIX PO (16:22)
[2024-05-05 16:50] LABS: Glucose - Point of Care 124 mg/dl (70-99)
[2024-05-05 19:18] VITALS: BP 104/63
[2024-05-05] MEDS: COREG 25 MG PO (20:09)
[2024-05-05] MEDS: SENOKOT 17.2 MG PO (21:17)
[2024-05-05 21:39] LABS: Glucose - Point of Care 114 mg/dl (70-99)
[2024-05-05 23:14] VITALS: BP 104/72
[2024-05-06] VITALS (7 sets, daily range): BP systolic 99–113; BP diastolic 60–77; PULSE 93; O2SAT 93; BMI 30.1
[2024-05-06] MEDS: MIRALAX 17 GRAMS PO (06:09)
[2024-05-06 06:55] LABS: Glucose - Point of Care 102 mg/dl (70-99)
--- NOTE | 2024-05-06 07:57 | W.PN.ORTHO ---
Today's Communication / Plan
-
74M POD #3 assistive devices as indicated
PT/OT to tolerance
DC planning - SNF recommended after PT yesterday
Pain controlled with current regimen
Delirium prevention; doing better this AM
DVT: Resume pradaxa
Dressings to remain in place x 2 weeks.
F/u in 2 weeks for incision check and x-rays
Ortho to sign off for now
Assessment
.
Distal Motor Intact: Yes
Dressing:
Clean, dry and intact.
Assessment:
74M POD #3 assistive devices as indicated
PT/OT to tolerance
DC planning - SNF recommended after PT yesterday
Pain controlled with current regimen
Delirium prevention; doing better this AM
DVT: Resume pradaxa
Dressings to remain in place x 2 weeks.
F/u in 2 weeks for incision check and x-rays
Plan
.
Surgery / Date: 03 May 2024 L short CMN with Dr. Snow
DVT Prophylaxis: Pradaxa
Activity:
Out of bed.
PT/OT
Discharge Plan: SNF
Subjective
.
.:
Patient resting comfortably in bed. Reports his pain is steadily improving. PT went well yesterday.
Vital Signs and Labs
.
Vital Signs and Labs:
Temp Pulse Resp BP Pulse Ox
97.2 F 82 16 99/71 92
05/06/24 07:00 05/06/24 07:00 05/06/24 07:00 05/06/24 07:00 05/06/24 07:00
PT 16.5 Sec (11.4-14.6) H 05/04/24 04:08
INR 1.33 05/04/24 04:08
Physical Exam
-
Left hip: Dressings c/d/i. Minimal swelling. ROM without pain. Calf soft and nontender to palpation. N/v intact distally.
[2024-05-06 08:00] LABS: Hematocrit 37.2 % (39.0-52.0); Hemoglobin 13.2 g/dL (13.0-18.0); Mean Corp Hgb Conc. 35.5 g/dL (33.0-37.0); Mean Corpuscular Hgb 31.2 pg (27.0-31.0); Mean Corpuscular Volume 87.9 fL (80.0-94.0); Mean Platelet Volume 9.9 fL (7.4-10.4); Platelet Count 285 10^3/uL (130-400); Red Blood Cell Count 4.23 10^6/uL (4.70-6.10); Red Cell Dist. Width 14.5 % (11.5-14.5)
[2024-05-06] MEDS: NOVOLOG FLEXPEN-LOW RESISTANCE SC ×3 (08:15→18:52)
[2024-05-06] MEDS: COREG PO (08:16)
[2024-05-06] MEDS: LASIX PO (08:16)
[2024-05-06 08:24] LABS: ALT (SGPT) 11 U/L (0-50); AST (SGOT) 24 U/L (17-59); Albumin 3.5 g/dl (3.5-5.0); Alkaline Phosphatase 80 U/L (38-126); Blood Urea Nitrogen 57 mg/dl (9-20); Calcium 9.2 mg/dl (8.4-10.2); Carbon Dioxide 31 mmol/L (22-30); Chloride 95 mmol/L (98-107); Estimated Creatinine Clearance 60 ml/min; Glucose 80 mg/dl (70-99); Potassium 3.5 mmol/L (3.5-5.1); Sodium 134 mmol/L (135-145); Total Bilirubin 1.4 mg/dl (0.2-1.3); Total Protein 6.3 g/dl (6.3-8.2); eGFR > 60.00
[2024-05-06] MEDS: TYLENOL 1000 MG PO ×3 (09:06→21:49)
[2024-05-06] MEDS: PRADAXA 150 MG PO ×2 (09:06→20:19)
[2024-05-06] MEDS: LIPITOR 40 MG PO (09:07)
[2024-05-06] MEDS: PACERONE 100 MG PO (09:08)
[2024-05-06] MEDS: LEXAPRO 20 MG PO (09:09)
--- NOTE | 2024-05-06 10:09 | CM ---
Chart reviewed including physical therapy notes and plan remains for skilled placement, housing case manager spoke with patient and patient's first choice is [facility], per admissions at [facility] they need to confirm that patient's insurance is in network
with [facility] before they can accept patient.
Plan; Waiting on a determination from [facility] admissions.
[2024-05-06 11:50] LABS: Glucose - Point of Care 118 mg/dl (70-99)
--- NOTE | 2024-05-06 12:15 | W.PN.HOSP.TC ---
Today's Communication/Plan
-
clear for dc
anticipate restarting jardiance/arb within 24 hours
Assessment / Plan
Assessment / Plan
General: Other (74y M in mild distress due to pain.)
HEENT: Moist mucous membranes and PERRLA
Respiratory: Clear; No Wheezes, Rales or Rhonchi
Cardiac: S1/S2, Irregular Rhythm and Tachycardia; No Murmur
GI: Soft, Non Tender, Non Distended and Normal Bowel Sounds
Musculoskeletal: No Clubbing, No Cyanosis, No Edema and Other (Moderate varicose veins. LLE - Clean, dry and intact at incision site
Neuro: AO x 3 and Nonfocal/grossly intact
A/P: Patient is a 74y M with PMH significant fr A-Fib, CHF and recent CVA who presents to ED complaining of L hip pain s/p fall at home.
Left Femur Fracture
-POD3 L short CMN with Dr. Snow
-WBAT with assistive devices as indicated
-PT/OT/DC planning
-Pain controlled with current regimen
Dressings to remain in place x 2 weeks.
F/u in 2 weeks for incision check and x-rays
Shock, Hypovolemic v cardiogenic - resolved
-occured post op
-off pressors this am - doing well
-ctm
f/u cards recs
-GDMT
Delirium
-post op
-improving
Fall at Home
- Mechanism of fall is not entirely clear - but seems related to fiza-nbc-oght or L weakness; appears to be mechanical
- no obvious stroke symptoms
- No neurologic symptoms / complaints.
- Monitor on telemetry for now.
Hypokalemia
- Monitor and replete
CAMILA
- Baseline of 1. Improving
- Suspect due to brisk diuresis over the past 2 days +/- new initiation of Ozempic.
- Would hold further Ozempic.
- Hold ARB and Jardiance acutely. - anticipate starting within 24 hours
Persistent Atrial Fibrillation with Rapid Ventricular Response
- Amiodarone
- Continue carvedilol
- resume pradaxa
- Cardiology
- PPM / AICD interrogated in the ED and shows only persistent A-Fib since October.
Chronic HFrEF
- Weight is now lower than it has been in some time.
- resume usual 80mg BID
- Hold Jardiance for now.
- Hold further metolazone for now.
- Follow I/Os, daily weights, etc.
- Adjust treatment as needed.
- Echo done last visit with EF = 20-25%.
- Cardiology evaluation as noted above.
ASCVD
Acute CVA
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
- stop asa, resume pradaxa
Anxiety / Depression
- Stable. Continue Lexapro.
History of Thyroid Carcinoma
- s/p partial thyroidectomy.
- Thyroid nodule incidentally noted on recent MR imaging.
- Needs OP follow-up, especially given prior cancer history.
DVT Prophylaxis: Pradaxa
Anticipated Discharge: Within 24 hours
Subjective/Interval History
-
Date of Service: May 06, 2024
no acute events
Objective Data
-
Labs:
Laboratory Results
05/06/24
05:37
WBC 11.0 H
Hgb 13.2
Hct 37.2 L
Plt Count 285
Sodium 134 L
Potassium 3.5
Chloride 95 L
Carbon Dioxide 31 H
BUN 57 H
Creatinine 1.2
Glucose 80
Calcium 9.2
Total Bilirubin 1.4 H
AST 24
ALT 11
Alkaline Phosphatase 80
Vital Signs:
Vital Signs
Temp Pulse Resp BP Pulse Ox
97.3 F 85 16 100/65 95
05/06/24 11:05 05/06/24 11:05 05/06/24 11:05 05/06/24 11:05 05/06/24 11:05
I&O
05/05/24 05/06/24 05/07/24
06:59 06:59 06:59
Intake Total 1250.0 / 1250.0 1860 / 1860
Output Total 1700 / 1700 1815 / 1815
Balance -450.0 / -450.0 45 / 45
Review of Systems
-
History Source: Patient
All other systems: Not reviewed unless documented
Data Reviewed
-
Diagnostic Radiology: Image personally visualized and interpreted and Report Reviewed by me
Labs: Labs Reviewed by me
[2024-05-06 16:19] LABS: Glucose - Point of Care 135 mg/dl (70-99)
[2024-05-06] MEDS: LASIX 80 MG PO (16:51)
[2024-05-06] MEDS: SENOKOT 17.2 MG PO (20:20)
[2024-05-06] MEDS: COREG 25 MG PO (20:21)
[2024-05-06 21:39] LABS: Glucose - Point of Care 124 mg/dl (70-99)
[2024-05-06] MEDS: ROXICODONE 10 MG PO (21:49)
[2024-05-07 03:10] VITALS: BP 108/75
[2024-05-07 05:40] VITALS: BMI 29.5
[2024-05-07 07:04] VITALS: BP 106/65
[2024-05-07 07:06] LABS: Glucose - Point of Care 100 mg/dl (70-99)
[2024-05-07] MEDS: NOVOLOG FLEXPEN-LOW RESISTANCE SC ×3 (07:16→17:28)
[2024-05-07] MEDS: MIRALAX 17 GRAMS PO (07:51)
[2024-05-07] MEDS: LIPITOR 40 MG PO (07:52)
[2024-05-07] MEDS: LEXAPRO 20 MG PO (07:52)
[2024-05-07] MEDS: COREG 25 MG PO ×2 (07:52→21:28)
[2024-05-07] MEDS: PRADAXA 150 MG PO ×2 (07:52→19:47)
[2024-05-07] MEDS: TYLENOL 1000 MG PO ×3 (07:52→21:28)
[2024-05-07] MEDS: PACERONE 100 MG PO (07:52)
[2024-05-07] MEDS: LASIX PO ×2 (08:01→15:23)
[2024-05-07 09:55] LABS: Hematocrit 38.9 % (39.0-52.0); Hemoglobin 13.7 g/dL (13.0-18.0); Mean Corp Hgb Conc. 35.2 g/dL (33.0-37.0); Mean Corpuscular Hgb 31.1 pg (27.0-31.0); Mean Corpuscular Volume 88.2 fL (80.0-94.0); Mean Platelet Volume 9.3 fL (7.4-10.4); Platelet Count 305 10^3/uL (130-400); Red Blood Cell Count 4.41 10^6/uL (4.70-6.10); Red Cell Dist. Width 14.6 % (11.5-14.5); White Blood Cell Count 10.7 10^3/uL (4.8-10.8)
[2024-05-07] MEDS: ROXICODONE 10 MG PO (10:30)
[2024-05-07 11:05] LABS: ALT (SGPT) 12 U/L (0-50); AST (SGOT) 25 U/L (17-59); Albumin 3.6 g/dl (3.5-5.0); Alkaline Phosphatase 69 U/L (38-126); Blood Urea Nitrogen 40 mg/dl (9-20); Calcium 9.4 mg/dl (8.4-10.2); Carbon Dioxide 30 mmol/L (22-30); Chloride 95 mmol/L (98-107); Estimated Creatinine Clearance 66 ml/min; Glucose 89 mg/dl (70-99); Potassium 4.2 mmol/L (3.5-5.1); Sodium 133 mmol/L (135-145); Total Bilirubin 1.7 mg/dl (0.2-1.3); Total Protein 6.3 g/dl (6.3-8.2); eGFR > 60.00
[2024-05-07 12:24] VITALS: BP 115/78; BP 116/75; PULSE 94
[2024-05-07 12:25] VITALS: BP 115/78; BP 116/75; PULSE 94
[2024-05-07 12:29] LABS: Glucose - Point of Care 114 mg/dl (70-99)
[2024-05-07 15:08] VITALS: BP 97/66
--- NOTE | 2024-05-07 16:35 | W.PN.HOSP.TC ---
Today's Communication/Plan
-
DC
Assessment / Plan
Assessment / Plan
A/P: Patient is a 74y M with PMH significant fr A-Fib, CHF and recent CVA who presents to ED complaining of L hip pain s/p fall at home.
Left Femur Fracture
-POD4 L short CMN with Dr. Snow
-WBAT with assistive devices as indicated
-PT/OT/DC planning
-Pain controlled with current regimen
Dressings to remain in place x 2 weeks.
F/u in 2 weeks for incision check and x-rays
Shock, Hypovolemic v cardiogenic - resolved
-occured post op
-off pressors - doing well
-ctm
f/u cards recs
-GDMT
Delirium
-post op
-resolved
Fall at Home
- Mechanism of fall is not entirely clear - but seems related to lblv-qfz-pver or L weakness; appears to be mechanical
- no obvious stroke symptoms
- No neurologic symptoms / complaints.
- Monitor on telemetry for now.
CAMILA
- Resolved
- Suspect due to brisk diuresis over the past 2 days +/- new initiation of Ozempic.
- Would hold further Ozempic.
Persistent Atrial Fibrillation with Rapid Ventricular Response
- Amiodarone
- Continue carvedilol
- resume pradaxa
- Cardiology
- PPM / AICD interrogated in the ED and shows only persistent A-Fib since October.
Chronic HFrEF
- Weight is now lower than it has been in some time.
- resume usual 80mg BID
- Hold Jardiance for now.
- Hold further metolazone for now.
- Follow I/Os, daily weights, etc.
- Adjust treatment as needed.
- Echo done last visit with EF = 20-25%.
- Cardiology evaluation as noted above.
ASCVD
Acute CVA
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
- stop asa, resume pradaxa
Anxiety / Depression
- Stable. Continue Lexapro.
History of Thyroid Carcinoma
- s/p partial thyroidectomy.
- Thyroid nodule incidentally noted on recent MR imaging.
- Needs OP follow-up, especially given prior cancer history.
DVT Prophylaxis: Pradaxa
Medically stable for DC
Total time of dc 35 min
Anticipated Discharge: Today
Subjective/Interval History
-
Date of Service: May 07, 2024
Feeling improved.
Voicing no specific complaints.
Denies any chest pain or shortness of breath.
No lightheadedness or dizziness.
No trouble with the constipation or urination.
Objective Data
-
Labs:
Laboratory Results
05/07/24
09:36
WBC 10.7
Hgb 13.7
Hct 38.9 L
Plt Count 305
Sodium 133 L
Potassium 4.2
Chloride 95 L
Carbon Dioxide 30
BUN 40 H
Creatinine 1.1
Glucose 89
Calcium 9.4
Total Bilirubin 1.7 H
AST 25
ALT 12
Alkaline Phosphatase 69
Vital Signs:
Vital Signs
Temp Pulse Resp BP Pulse Ox
97.8 F 90 15 97/66 95
05/07/24 15:08 05/07/24 15:08 05/07/24 15:08 05/07/24 15:23 05/07/24 15:08
I&O
05/06/24 05/07/24 05/08/24
06:59 06:59 06:59
Intake Total 1860 / 1860 1800 / 1800
Output Total 181 / 1815 1655 / 1654
Balance 45 / 45 145 / 145
Review of Systems
-
Respiratory: Denies Trouble Breathing
Cardiac: Denies Chest Pain
Abdomen/GI: Denies Abdominal Pain, Nausea or Vomiting
Neuro: Denies Dizzy
Physical Exam
-
General: No Apparent Distress
HEENT: Moist Mucous Membranes
Respiratory: Clear to Auscultation
Cardiac: Regular Rhythm and S1/S2
GI: Soft, Nontender, Nondistended and Normal Bowel Sounds
Neuro: AO x 3
Psych: Calm
Data Reviewed
-
Labs: Labs Reviewed by me
--- NOTE | 2024-05-07 16:40 | CM ---
Discharge Plan of Care: SNF for STR. Referrals out. Will need insurance auth.
[2024-05-07 17:17] LABS: Glucose - Point of Care 102 mg/dl (70-99)
[2024-05-07] MEDS: SENOKOT PO (21:31)
[2024-05-07 21:40] LABS: Glucose - Point of Care 80 mg/dl (70-99)
[2024-05-07 23:29] VITALS: BP 111/76
[2024-05-08 04:53] VITALS: BMI 28.9
[2024-05-08] MEDS: ROXICODONE 10 MG PO ×2 (04:54→23:14)
[2024-05-08 07:05] VITALS: BP 116/78
[2024-05-08 07:07] LABS: Glucose - Point of Care 99 mg/dl (70-99)
[2024-05-08] MEDS: NOVOLOG FLEXPEN-LOW RESISTANCE SC ×3 (08:07→17:22)
[2024-05-08] MEDS: LASIX 80 MG PO (08:08)
[2024-05-08] MEDS: PRADAXA 150 MG PO ×2 (08:08→19:33)
[2024-05-08] MEDS: LEXAPRO 20 MG PO (08:09)
[2024-05-08] MEDS: TYLENOL 1000 MG PO ×3 (08:09→21:31)
[2024-05-08] MEDS: COREG 25 MG PO ×2 (08:09→19:32)
[2024-05-08] MEDS: LIPITOR 40 MG PO (08:09)
[2024-05-08] MEDS: PACERONE 100 MG PO (08:09)
[2024-05-08 11:55] VITALS: BP 97/64; BP 98/66; PULSE 90
[2024-05-08 12:20] LABS: Glucose - Point of Care 103 mg/dl (70-99)
[2024-05-08 12:31] VITALS: BP 97/64; BP 98/54
--- NOTE | 2024-05-08 14:31 | W.PN.HOSP.TC ---
Today's Communication/Plan
-
DC
Assessment / Plan
Assessment / Plan
A/P: Patient is a 74y M with PMH significant fr A-Fib, CHF and recent CVA who presents to ED complaining of L hip pain s/p fall at home.
Left Femur Fracture
-POD5 L short CMN with Dr. Snow
-WBAT with assistive devices as indicated
-Pain controlled with current regimen
Dressings to remain in place x 2 weeks.
F/u in 2 weeks for incision check and x-rays
Shock, Hypovolemic v cardiogenic - resolved
-occured post op
-off pressors - doing well
f/u cards recs
-GDMT
Delirium
-post op
-resolved
Fall at Home
- Mechanism of fall is not entirely clear - but seems related to nuiz-juz-faen or L weakness; appears to be mechanical
- no obvious stroke symptoms
- No neurologic symptoms / complaints.
- Monitor on telemetry for now.
CAMILA
- Resolved
- Suspect due to brisk diuresis over the past 2 days +/- new initiation of Ozempic.
- Would hold further Ozempic.
Persistent Atrial Fibrillation with Rapid Ventricular Response
- Amiodarone
- Continue carvedilol
- resume pradaxa
- Cardiology
- PPM / AICD interrogated in the ED and shows only persistent A-Fib since October.
Chronic HFrEF
- Weight is now lower than it has been in some time.
- resume usual 80mg BID
- Will reintroduce Jardiance .
- Hold further metolazone for now.
- Follow I/Os, daily weights, etc.
- Adjust treatment as needed.
- Echo done last visit with EF = 20-25%.
- Cardiology evaluation as noted above.
ASCVD
Acute CVA
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
- stop asa, resume pradaxa
Anxiety / Depression
- Stable. Continue Lexapro.
History of Thyroid Carcinoma
- s/p partial thyroidectomy.
- Thyroid nodule incidentally noted on recent MR imaging.
- Needs OP follow-up, especially given prior cancer history.
DVT Prophylaxis: Pradaxa
Medically stable for DC
Total time of dc 35 min
Anticipated Discharge: Today
Subjective/Interval History
-
Date of Service: May 08, 2024
No events from overnight.
Voicing no specific complaints. Not much of pain from the fracture repair site.
Denies chest pain or shortness of breath
Objective Data
-
Vital Signs:
Vital Signs
Temp Pulse Resp BP Pulse Ox
97.6 F 93 15 116/78 94
05/08/24 07:05 05/08/24 07:05 05/08/24 07:05 05/08/24 08:08 05/08/24 08:03
I&O
05/07/24 05/08/24 05/09/24
06:59 06:59 06:59
Intake Total 1800 / 1800 2520 / 2520
Output Total 1655 / 1655 575 / 575
Balance 145 / 145 194 / 194
Review of Systems
-
Constitutional: Denies Fever
Respiratory: Denies Cough
Abdomen/GI: Denies Abdominal Pain, Nausea or Vomiting
Neuro: Denies Dizzy
Physical Exam
-
General: No Apparent Distress
HEENT: Moist Mucous Membranes
Respiratory: Clear to Auscultation
Cardiac: Regular Rhythm and S1/S2
GI: Soft
Neuro: AO x 3
--- NOTE | 2024-05-08 14:39 | W.DS.TRANS ---
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
-
Discharge Instructions:
Discharge Diagnosis/Procedures Left Femur Fracture s/p L short CMN with
Steere; postop shock, delirium, CAMILA all resolved
. Persistent atrial fibrillation,
Chronic heart failure with reduced EF
Diet Low Cholesterol
Activity As tolerated
Driving Restrictions Not until seen by your Dr
Other Services PT,OT
Specialty Instructions Weigh Daily
Instructions:
Stand-Alone Forms:
Changes to Home Medications: Yes
Discharge Medications:
DC Medications w/original date entered in [id number]
dabigatran etexilate 150 mg capsule (Pradaxa) 150 mg PO BID Blood clot prevention/tx 02/11/21
ychgbhmpzcy-nbziyhaok-yia C-Mn 500 mg-400 mg capsule (Glucosamine Chondroitin Maximum Strength) 1 cap PO BID Supplement 06/09/23
cholecalciferol (vitamin D3) 50 mcg (2,000 unit) tablet 50 mcg PO DAILY Supplement 04/24/24
empagliflozin 10 mg tablet (Jardiance) 10 mg PO DAILY DIABETES 04/24/24
semaglutide 0.25 mg or 0.5 mg (2 mg/3 mL) subcutaneous pen injector (Ozempic) 0.25 mg SC MO diabetes 04/24/24
zinc sulfate 50 mg zinc (220 mg) tablet 50 mg PO DAILY Supplement 04/24/24
amiodarone 100 mg tablet 100 mg PO DAILY Arrhythmia 04/25/24
escitalopram oxalate 20 mg tablet 20 mg PO DAILY #0 tabs 04/26/24
atorvastatin 40 mg tablet 40 mg PO DAILY High Cholesterol 05/01/24
furosemide 40 mg tablet 80 mg PO BID Fluid retention/Swelling 05/01/24
acetaminophen 500 mg tablet (Tylenol Extra Strength) 1,000 mg (2 x 500 mg) PO TID #1 tab 05/08/24
candesartan 8 mg tablet 8 mg PO DAILY Blood pressure #90 tabs 05/08/24
carvedilol 25 mg tablet 25 mg PO BID #1 tab 05/08/24
oxycodone 10 mg tablet 10 mg PO Q4HPRN PRN Moderate Pain #12 tabs 05/08/24
polyethylene glycol 3350 17 gram oral powder packet (HealthyLax) 17 g PO DAILYPRN PRN Constipation #14 ea 05/08/24
sennosides 8.6 mg tablet (Senna Laxative) 17.2 mg (2 x 8.6 mg) PO HS #1 tab 05/08/24
Home Medication Changes
New medication-senna, MiraLAX, oxycodone
Change in medication-dose of Coreg decreased from 50 to 25 mg
Discontinued medication-metolazone
Pending Results: No
[2024-05-08 14:56] VITALS: BP 104/78
[2024-05-08] MEDS: LASIX PO (15:51)
--- NOTE | 2024-05-08 16:54 | CM ---
Patient has been accepted to [facility] for SNF STR. Insurance auth required and received. Case reference # [id number]. Approved for 6 days 05/09/24 through 05/15/24. Next Review Date is 05/15/24. Concurrent reviews called to: Iris
OBED Cervantes @ [phone] and Fax # is [phone]. Initial review documents forwarded.
NURSE TO NURSE REPORT # [phone]
FAX # [phone]
[2024-05-08 17:21] LABS: Glucose - Point of Care 130 mg/dl (70-99)
[2024-05-08] MEDS: SENOKOT 17.2 MG PO (19:33)
[2024-05-08 21:49] LABS: Glucose - Point of Care 119 mg/dl (70-99)
[2024-05-08 23:06] VITALS: BP 105/77
--- NOTE | 2024-05-09 03:00 | DOWNTIME ---
There was a [employer] Client Psychiatric Aide Instructor Downtime on 05/09/2024 from 0100 to 05/09/2024 at 0252. Downtime documentation of patient's care, including medication administrations, has been reconciled in the electronic record per guidelines. Refer to the
patient's paper chart under the miscellaneous tab to see printed paper medication records and downtime forms.
[2024-05-09 06:00] VITALS: BMI 29.1
[2024-05-09 07:00] VITALS: BP 114/80
[2024-05-09 07:25] LABS: Glucose - Point of Care 97 mg/dl (70-99)
[2024-05-09] MEDS: NOVOLOG FLEXPEN-LOW RESISTANCE SC ×2 (08:02→12:26)
[2024-05-09] MEDS: LASIX 80 MG PO (08:04)
[2024-05-09] MEDS: TYLENOL 1000 MG PO (08:04)
[2024-05-09] MEDS: LIPITOR 40 MG PO (08:04)
[2024-05-09] MEDS: PACERONE 100 MG PO (08:05)
[2024-05-09] MEDS: PRADAXA 150 MG PO (08:05)
[2024-05-09] MEDS: COREG 25 MG PO (08:06)
[2024-05-09] MEDS: LEXAPRO 20 MG PO (08:06)
--- NOTE | 2024-05-09 09:33 | CM ---
Patient has been medically cleared for discharge to [facility] for penitentiary and rehab services. Insurance auth required and received. Case reference # [id number]. Approved for 6 days 05/09/24 through 05/15/24. Next Review Date is
05/15/24. Concurrent reviews called to: Iris Cervantes RN @ [phone] and Fax # is [phone]. Initial review documents forwarded on 05/08/24. Transport scheduled for 2:00PM.
NURSE TO NURSE REPORT # [phone]
FAX # [phone]
[2024-05-09 11:00] VITALS: BP 101/76
--- NOTE | 2024-05-09 11:38 | W.PN.HOSP.TC ---
Today's Communication/Plan
-
DC
Assessment / Plan
Assessment / Plan
A/P: Patient is a 74y M with PMH significant fr A-Fib, CHF and recent CVA who presents to ED complaining of L hip pain s/p fall at home.
Left Femur Fracture
-POD5 L short CMN with Dr. Snow
-WBAT with assistive devices as indicated
-Pain controlled with current regimen
Dressings to remain in place x 2 weeks.
F/u in 2 weeks for incision check and x-rays
Shock, Hypovolemic v cardiogenic - resolved
-occured post op
-off pressors - doing well
f/u cards recs
-GDMT
Delirium
-post op
-resolved
Fall at Home
- Mechanism of fall is not entirely clear - but seems related to tbam-hmf-zzus or L weakness; appears to be mechanical
- no obvious stroke symptoms
- No neurologic symptoms / complaints.
- Monitor on telemetry for now.
CAMILA
- Resolved
- Suspect due to brisk diuresis over the past 2 days +/- new initiation of Ozempic.
- Would hold further Ozempic.
Persistent Atrial Fibrillation with Rapid Ventricular Response
- Amiodarone
- Continue carvedilol
- resume pradaxa
- Cardiology
- PPM / AICD interrogated in the ED and shows only persistent A-Fib since October.
Chronic HFrEF
- Weight is now lower than it has been in some time.
- resume usual 80mg BID
- Will reintroduce Jardiance .
- Hold further metolazone for now.
- Follow I/Os, daily weights, etc.
- Adjust treatment as needed.
- Echo done last visit with EF = 20-25%.
- Cardiology evaluation as noted above.
ASCVD
Acute CVA
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
- stop asa, resume pradaxa
Anxiety / Depression
- Stable. Continue Lexapro.
History of Thyroid Carcinoma
- s/p partial thyroidectomy.
- Thyroid nodule incidentally noted on recent MR imaging.
- Needs OP follow-up, especially given prior cancer history.
DVT Prophylaxis: Pradaxa
Medically stable for DC
Total time of dc 35 min
Anticipated Discharge: Today
Subjective/Interval History
-
Date of Service: May 09, 2024
No new issues overnight . Voices no specific complaints.
Pain from hip repair site is controlled.
Objective Data
-
Vital Signs:
Vital Signs
Temp Pulse Resp BP Pulse Ox
98.7 F 88 16 101/76 97
05/09/24 11:00 05/09/24 11:00 05/09/24 11:00 05/09/24 11:00 05/09/24 11:00
I&O
05/08/24 05/09/24 05/10/24
06:59 06:59 06:59
Intake Total 2520 / 2520 2070 / 2070
Output Total 575 / 575 1275 / 1275 250 / 250
Balance 1945 / 1945 795 / 795 -250 / -250
Review of Systems
-
Respiratory: Denies Trouble Breathing
Cardiac: Denies Chest Pain
Abdomen/GI: Denies Abdominal Pain, Nausea, Vomiting or Constipated
Neuro: Denies Dizzy
Physical Exam
-
Respiratory: Clear to Auscultation
Cardiac: Regular Rhythm and S1/S2
GI: Soft
Neuro: AO x 3
Psych: Negative Confused
[2024-05-09 12:23] LABS: Glucose - Point of Care 119 mg/dl (70-99)
[2024-05-09] MEDS: ROXICODONE 10 MG PO (13:47)
--- NOTE | 2024-05-09 14:22 | PTCARENOTE ---
Pt discharged to [facility]. (L) forearm IV site removed. Pt left on ambulance stretcher with Acute Care.
--- NOTE | 2024-05-09 15:49 | W.DCSUMMARY ---
Discharge Summary
Discharge Data
Date of Admission: 05/01/24
Date of Discharge: 05/09/24
-
Pending Results: No
Hospital Course
Primary diagnosis:
Left Femur Fracture-Left short Cephalomedullary nail with Dr. Snow
Post opertive hypotension
Delirium post operative
Acute kidney injury suspect secondary to brisk diuresis
Secondary diagnosis:
permanent atrial fibrillation
Chronic heart failure with reduced EF
recent brainstem ischemic infarct
Anxiety/depression
History of thyroid carcinoma
Hospital course:
patient had a mechanical fall and above fracture for which he had a forementioned surgery as above. postoperatively had a hypotension but he was tolerating it well. He was seen by cardiology. They decrease the dose of Coreg. He also had postop
delirium which resolved. He also had a postoperative CAMILA which was suspected may be secondary to diuresis. His metolazone was discontinued and his Ozempic which was reinitiated postsurgery was kept on hold till his CAMILA and BP stablized. His
creatinine came back to normal with improvement in his hemodynamics.
He was maintained on other GDMT medications for nonischemic cardiomyopathy and chronic heart failure with preserved EF. Once he was stable he was discharged to rehab.
Consultants on board:
Cardiology Dr. Shakir Barragan
Orthopedic Dr. Snow
Discharge Plan
-
Patient Disposition: Penitentiary/SNF
Discharge Diagnosis/Procedures: Left Femur Fracture s/p L short CMN with Dr. Snow; postop shock, delirium, CAMILA all resolved. Persistent atrial fibrillation,
Chronic heart failure with reduced EF
Diet: Low Cholesterol
Activity: As tolerated
Driving Restrictions: Not until seen by your Dr
Other Services: PT and OT
Specialty Instructions: Weigh Daily- Call MD for wt gain/loss 3 lbs overnight/5 lbs in 1 week
Referrals:
German Cleaning MD [Family Provider] -
Prescriptions:
New
carvedilol 25 mg Tablet
25 mg PO BID Qty: 1 0RF
Rx Instructions:
dose decreased on this admission
polyethylene glycol 3350 [HealthyLax] 17 gram Powder In Packet
17 g PO DAILYPRN PRN (Reason: Constipation) Qty: 14 0RF
sennosides [Senna Laxative] 8.6 mg Tablet
17.2 mg PO HS Qty: 1 0RF
oxycodone 10 mg Tablet
10 mg PO Q4HPRN PRN (Reason: Moderate Pain) Qty: 12 0RF
acetaminophen [Tylenol Extra Strength] 500 mg Tablet
1,000 mg PO TID Qty: 1 0RF
Continued
dabigatran etexilate [Pradaxa] 150 MG capsule
150 mg PO BID
jcxojswxipw-wnbrzdkqc-igi C-Mn [Glucosamine Chondroitin MaxStr] 500-400 mg Capsule
1 cap PO BID
Jardiance 10 mg tablet
10 mg PO DAILY
zinc sulfate 50 mg zinc (220 mg) Tablet
50 mg PO DAILY
cholecalciferol (vitamin D3) 50 mcg (2,000 unit) Tablet
50 mcg PO DAILY
Ozempic 0.25 mg or 0.5 mg (2 mg/3 mL) Pen Injector
0.25 mg SC MO
amiodarone 100 mg Tablet
100 mg PO DAILY
escitalopram oxalate 20 mg Tablet
20 mg PO DAILY Qty: 0 0RF
atorvastatin 40 mg tablet
40 mg PO DAILY
furosemide 40 mg tablet
80 mg PO BID
candesartan 8 mg Tablet
8 mg PO DAILY Qty: 90 3RF
Rx Instructions:
hold if sbp<110
Discontinued
carvedilol [Coreg] 25 mg tablet
50 mg PO BID Qty: 120 0RF
metolazone 2.5 mg tablet
2.5 mg PO DAILYPRN PRN (Reason: weight gain/swelling)
Discharge Orders:
Discharge Patient (As Directed); Ordered 05/09/24
Ordered By: Bruce Goldman
Discharge Date and Time
Discharge Date/Time: 05/09/24 14:21
Print Language: THAI
== END 2024-05-09 14:21 | DRG 481 ==
LOC: 2 SOUTH 20:24
PROVIDERS: Internal Medicine; Nurse Practitioner Primary Care; Physician Assistant; ADMITTING PHYSICIAN Hospitalist; ATTENDING PHYSICIAN Internal Medicine; EMERGENCY PHYSICIAN Emergency Medicine; FAMILY PHYSICIAN Internal Medicine Geriatric Medicine; OTHER PHYSICIAN Internal Medicine; OTHER PHYSICIAN Internal Medicine Cardiovascular Disease; OTHER PHYSICIAN Orthopaedic Surgery
PROC: 5A09357 Assistance with Respiratory Ventilation, Less than 24 Consecutive Hours, Continuous Positive Airway Pressure (ICD-10-PCS; 2024-05-01)
PROC: 0QS736Z Reposition Left Upper Femur with Intramedullary Internal Fixation Device, Percutaneous Approach (ICD-10-PCS; 2024-05-03)
DX: S72.142A Displaced intertrochanteric fracture of left femur, initial encounter for closed fracture (principal); F05 Delirium due to known physiological condition; I48.21 Permanent atrial fibrillation; I42.8 Other cardiomyopathies; N17.9 Acute kidney failure, unspecified; I50.22 Chronic systolic (congestive) heart failure; I95.81 Postprocedural hypotension; E11.9 Type 2 diabetes mellitus without complications; N40.0 Benign prostatic hyperplasia without lower urinary tract symptoms; K59.00 Constipation, unspecified; E87.6 Hypokalemia; E78.00 Pure hypercholesterolemia, unspecified; F32.A Depression, unspecified; F41.9 Anxiety disorder, unspecified; G47.33 Obstructive sleep apnea (adult) (pediatric); I11.0 Hypertensive heart disease with heart failure; I25.10 Atherosclerotic heart disease of native coronary artery without angina pectoris; E89.0 Postprocedural hypothyroidism; W01.0XXA Fall on same level from slipping, tripping and stumbling without subsequent striking against object, initial encounter; E66.9 Obesity, unspecified; Z68.29 Body mass index [BMI] 29.0-29.9, adult; Z87.891 Personal history of nicotine dependence; Z88.8 Allergy status to other drugs, medicaments and biological substances; Z95.810 Presence of automatic (implantable) cardiac defibrillator; Z86.73 Personal history of transient ischemic attack (TIA), and cerebral infarction without residual deficits; Z85.850 Personal history of malignant neoplasm of thyroid; Z79.84 Long term (current) use of oral hypoglycemic drugs; Z79.85 Long-term (current) use of injectable non-insulin antidiabetic drugs; Z79.899 Other long term (current) drug therapy; Z79.01 Long term (current) use of anticoagulants
CPT/HCPCS: 36415; 71045; 73502; 76000; 80048; 80053; 80061; 82306; 82962; 83001; 83002; 83735; 83880; 84146; 84270; 84402; 84403; 84484; 85025; 85027; 85610; 85730; 86850; 86900; 86901; 93005; 96374; 97110; 97116; 97163; 97167; 97530; 97535; 99285; C1713

== ENCOUNTER → 2024-05-11 10:57 | Outpatient (REF) | payer BC, MEDICARE, SELFPAY ==
[2024-05-11 11:57] LABS: Hemoglobin 12.6 g/dL (13.0-18.0); Mean Corpuscular Hgb 31.6 pg (27.0-31.0); Mean Corpuscular Volume 90.2 fL (80.0-94.0); Mean Platelet Volume 9.5 fL (7.4-10.4); Platelet Count 291 10^3/uL (130-400); Red Blood Cell Count 3.99 10^6/uL (4.70-6.10); Red Cell Dist. Width 14.5 % (11.5-14.5); White Blood Cell Count 7.9 10^3/uL (4.8-10.8)
[2024-05-11 12:06] LABS: ALT (SGPT) 15 U/L (0-50); AST (SGOT) 27 U/L (17-59); Albumin 3.1 g/dl (3.5-5.0); Alkaline Phosphatase 100 U/L (38-126); Blood Urea Nitrogen 29 mg/dl (9-20); Calcium 8.7 mg/dl (8.4-10.2); Carbon Dioxide 31 mmol/L (22-30); Chloride 100 mmol/L (98-107); Glucose 77 mg/dl (70-99); Potassium 3.8 mmol/L (3.5-5.1); Sodium 139 mmol/L (135-145); Total Bilirubin 1.7 mg/dl (0.2-1.3); Total Protein 5.8 g/dl (6.3-8.2); eGFR > 60.00
[2024-05-11 12:25] LABS: Glycohemoglobin (HgbA1c) 5.2 % (4.0-5.6)
== END ==
LOC: OLABWHC 10:57
PROVIDERS: ATTENDING PHYSICIAN Internal Medicine
DX: I10 Essential (primary) hypertension (principal); I48.11 Longstanding persistent atrial fibrillation; I50.22 Chronic systolic (congestive) heart failure; N17.9 Acute kidney failure, unspecified
CPT/HCPCS: 36415; 80053; 83036; 83735; 85027

== ENCOUNTER → 2024-05-14 11:32 | Outpatient (REF) | payer OTHER, BC, MEDICARE, SELFPAY ==
[2024-05-14 13:38] LABS: % Basophils 0.7 % (0-2); % Eosinophils 1.5 % (0-6); % Lymphocytes 20.2 % (20.5-51.1); % Monocytes 11.4 % (1.7-9.3); % Neutrophils 65.2 % (42.2-75.2); Absolute Basophils 0.1 10^3/uL (0-0.2); Absolute Eosinophils 0.1 10^3/uL (0-0.7); Absolute Immature Granulocytes 0.1 10^3/uL (0-0.05); Absolute Lymphocytes 1.5 10^3/uL (1.2-3.4); Absolute Monocytes 0.8 10^3/uL (0.1-0.6); Absolute Neutrophils 4.7 10^3/uL (1.4-6.5); Hematocrit 34.6 % (39.0-52.0); Hemoglobin 11.9 g/dL (13.0-18.0); Mean Corp Hgb Conc. 34.4 g/dL (33.0-37.0); Mean Corpuscular Hgb 31.2 pg (27.0-31.0); Mean Corpuscular Volume 90.6 fL (80.0-94.0); Mean Platelet Volume 9.3 fL (7.4-10.4); Nucleated Red Blood Cells % 0 % (-); Platelet Count 313 10^3/uL (130-400); Red Blood Cell Count 3.82 10^6/uL (4.70-6.10); White Blood Cell Count 7.2 10^3/uL (4.8-10.8)
[2024-05-14 14:15] LABS: Blood Urea Nitrogen 22 mg/dl (9-20); Calcium 8.9 mg/dl (8.4-10.2); Carbon Dioxide 27 mmol/L (22-30); Chloride 104 mmol/L (98-107); Glucose 84 mg/dl (70-99); Potassium 3.6 mmol/L (3.5-5.1); Sodium 140 mmol/L (135-145); eGFR > 60.00
== END ==
LOC: OLABWHC 11:32
PROVIDERS: ATTENDING PHYSICIAN Internal Medicine
DX: S72.142D Displaced intertrochanteric fracture of left femur, subsequent encounter for closed fracture with routine healing (principal); I10 Essential (primary) hypertension; N17.9 Acute kidney failure, unspecified
CPT/HCPCS: 36415; 80048; 85025

== ENCOUNTER 2024-08-10 08:17 | Outpatient (RCR) | payer BC, SELFPAY | END 2024-08-10 23:59 | disposition home or self-care (01) | LOC: ROT 08:17 | PROVIDERS: ATTENDING PHYSICIAN Neurological Surgery; FAMILY PHYSICIAN Internal Medicine Geriatric Medicine | DX: G91.2 (Idiopathic) normal pressure hydrocephalus (principal); Z73.6 Limitation of activities due to disability | CPT/HCPCS: 97163; 97167 ==

== ENCOUNTER → 2024-08-23 10:27 | Outpatient (REF) | payer BC, SELFPAY ==
[2024-08-23 10:59] LABS: Hematocrit 43.9 % (39.0-52.0); Hemoglobin 14.7 g/dL (13.0-18.0); Mean Corp Hgb Conc. 33.5 g/dL (33.0-37.0); Mean Corpuscular Hgb 30.7 pg (27.0-31.0); Mean Corpuscular Volume 91.6 fL (80.0-94.0); Mean Platelet Volume 9.2 fL (7.4-10.4); Platelet Count 281 10^3/uL (130-400); Red Blood Cell Count 4.79 10^6/uL (4.70-6.10); Red Cell Dist. Width 14.3 % (11.5-14.5); White Blood Cell Count 7.3 10^3/uL (4.8-10.8)
[2024-08-23 11:06] VITALS: BP 115/83; BP_SYST 84
[2024-08-23 11:19] LABS: INR 1.39; PT 17.6 Sec (11.4-14.6)
[2024-08-23 13:04] VITALS: BP 126/87
== END ==
LOC: RADI 10:27
PROVIDERS: ATTENDING PHYSICIAN Physician Assistant
DX: G91.2 (Idiopathic) normal pressure hydrocephalus (principal); Z01.812 Encounter for preprocedural laboratory examination; Z01.818 Encounter for other preprocedural examination
CPT/HCPCS: 36415; 62328; 85027; 85610

== ENCOUNTER 2024-08-23 13:02 | Outpatient (RCR) | payer BC, SELFPAY | END 2024-08-28 07:40 | disposition home or self-care (01) | LOC: ROT 13:02 | PROVIDERS: ATTENDING PHYSICIAN Neurological Surgery; FAMILY PHYSICIAN Internal Medicine Geriatric Medicine | DX: G91.2 (Idiopathic) normal pressure hydrocephalus (principal); Z73.6 Limitation of activities due to disability | CPT/HCPCS: 97116; 97164; 97168 ==

== ENCOUNTER → 2024-09-05 14:05 | Outpatient (REF) | payer BC, SELFPAY | LOC: DHSLP 14:05 | PROVIDERS: ATTENDING PHYSICIAN Internal Medicine Critical Care Medicine; FAMILY PHYSICIAN Internal Medicine Geriatric Medicine | DX: G47.33 Obstructive sleep apnea (adult) (pediatric) (principal); G47.31 Primary central sleep apnea; R09.02 Hypoxemia; G47.61 Periodic limb movement disorder | CPT/HCPCS: 95811 ==

== ENCOUNTER 2024-11-15 06:13 | Outpatient (RCR) | payer BC, SELFPAY | END 2024-11-15 23:59 | disposition home or self-care (01) | LOC: RPT 06:13 | PROVIDERS: ATTENDING PHYSICIAN Physician Assistant Medical; FAMILY PHYSICIAN Internal Medicine Geriatric Medicine | DX: G91.2 (Idiopathic) normal pressure hydrocephalus (principal); M25.552 Pain in left hip; Z73.6 Limitation of activities due to disability; R26.2 Difficulty in walking, not elsewhere classified; M62.81 Muscle weakness (generalized); M54.50 Low back pain, unspecified; Z98.2 Presence of cerebrospinal fluid drainage device; Z86.73 Personal history of transient ischemic attack (TIA), and cerebral infarction without residual deficits; Z98.890 Other specified postprocedural states | CPT/HCPCS: 97110; 97112; 97116; 97163; 97530 ==

== ENCOUNTER 2024-11-23 13:37 | Inpatient (IN) | payer BC, MEDICARE, SELFPAY ==
[2024-11-23] VITALS (11 sets, daily range): BP systolic 111–156; BP diastolic 75–110; BMI 32.1
[2024-11-23 09:06] LABS: % Basophils 0.4 % (0-2); % Eosinophils 0.9 % (0-6); % Immature Granulocytes 0.5 % (0-0.5); % Lymphocytes 10.7 % (20.5-51.1); % Monocytes 7.3 % (1.7-9.3); % Neutrophils 80.2 % (42.2-75.2); Absolute Basophils 0.1 10^3/uL (0-0.2); Absolute Eosinophils 0.1 10^3/uL (0-0.7); Absolute Immature Granulocytes 0.1 10^3/uL (0-0.05); Absolute Lymphocytes 1.4 10^3/uL (1.2-3.4); Absolute Neutrophils 10.7 10^3/uL (1.4-6.5); Hematocrit 45.9 % (39.0-52.0); Hemoglobin 15.3 g/dL (13.0-18.0); Mean Corp Hgb Conc. 33.3 g/dL (33.0-37.0); Mean Corpuscular Hgb 30.5 pg (27.0-31.0); Mean Corpuscular Volume 91.4 fL (80.0-94.0); Mean Platelet Volume 9.1 fL (7.4-10.4); Nucleated Red Blood Cells % 0 % (-); Platelet Count 350 10^3/uL (130-400); Red Blood Cell Count 5.02 10^6/uL (4.70-6.10); Red Cell Dist. Width 15.4 % (11.5-14.5); White Blood Cell Count 13.3 10^3/uL (4.8-10.8)
--- NOTE | 2024-11-23 09:16 | ED.GENMED ---
History of Present Illness
General
Chief Complaint: Breathing Problem
Source: patient
Exam Limitations: none
Time Seen by Provider: 11/23/24 09:16
Nursing documentation reviewed up to this point in time: agreed with
History of Present Illness
History of Present Illness:
74 yo male w h/o Afib on Pradaxa, Cardiomyopathy, CHF, Defibrillator, HtN, HLD, Pacemaker, TIA, NPH w shunt, thyroid CA w partial thyroidectomy, presents for 'short of breath, CHF.' States gradually worsening SOB since yesterday, reporting 10 lb wt
gain since yesterday. 4 a.m. today had 'a little bit' of mid chest pressure. Denies n/v/d/c.
Past History
Past History
ED Past Medical History: Arrthythmia (afib), Cancer (thyroid), HTN, Valvular disease (MVR), Psychiatric (anxiey) and Other (TIA, OA, kidney stones)
ED Past Surgical History: Cardiac (Cardiac ablation)
Social History
Tobacco: Non-smoker
Alcohol: None
Drug: None
Personal:
Living: with family
Employment: Employed
Family History
Family History: Other (Noncontributory)
Review of Systems
Review of Systems
Allergies reviewed?: Yes
All Other Systems: ROS reviewed and negative except as documented in HPI and ROS
Constitutional: Reports fatigue; Denies fever
Respiratory: Reports trouble breathing; Denies cough
Cardiac: Reports chest pain; Denies diaphoresis, palpitations or syncope
ABD/GI: Denies abdominal pain, nausea, vomiting or diarrhea
: Denies dysuria, frequency or difficulty voiding
Skin: Reports no symptoms
Neurological: Reports no symptoms
Phy Exam
Physical Exam
Physical Exam:
GENERAL: No acute distress. A&Ox3.
CONSTITUTIONAL: Afebrile.
EYES: clear, conjunctivae normal
ENMT: moist mucus membranes, Pharynx nl
RESPIRATORY: Regular respirations, nonlabored, lungs clear.
CARDIOVASCULAR: Regular rate and rhythm, no murmurs, no rubs.
GI: Soft, nontender, normal BS
MUSCULOSKELETAL: Moves with ease. Well perfused.
SKIN: Warm, dry, pink
PSYCH: Normal mood and affect. Well kept, interactive and appropriate
NEUROLOGIC: Awake, alert and oriented. No focal neurological deficits
Scores
Heart Failure Risk
Heart Failure Risk Score: Yes
History of Stroke or TIA: Yes
History of intubation for respiratory distress: No
Heart rate on ED arrival >/= 110: Yes
SaO2 <90% on arrival on room air: No
HR >/=110 during 3min walk test (or too ill to perform test): Yes
ECG has acute ischemic changes: No
Urea >/=12mmol/L (BUN 33.6mg/dL): No
Serum CO2>/=35mmol/L: No
Troponin I or T elevated to MO Level (0.4mg/dL): No
NT-proBNP >/=5,000ng/L (5,000pg/ml): Yes
HF Risk Score: 4
Admission Status: HIGH RISK 26.1% Consider SNF treatment or admission to hospital
Course
Orders/Labs/Results
Orders:
Orders
11/23/24 08:42
EKG [Electrocardiogram (*1)] Urgent
Reason for Study: Shortness of Breath
EKG- Treatment ONCE
11/23/24 08:55
Complete Blood Count/With Diff Urgent
Comprehensive Metabolic Panel Urgent
Lipase Urgent
NT-proBNP Urgent
TSH Urgent
Comment: ADD ON
Troponin I Urgent
11/23/24 09:27
Add On- LAB Urgent
Tests Added?: TSH
11/23/24 09:32
CR Chest Portable - 1 View Urgent
Comment:
Reason For Exam: SOB
Reason Study Needs to be Portable: Patient Unstable
11/23/24 09:41
COVID-19 Antigen Urgent
Source: Nasal Swab
PTT Urgent
Prothrombin Time Urgent
Influenza A+B Rapid Molecular Urgent
EDMOND Source: Nasal Swab
Specimen Description:
11/23/24 10:25
Furosemide [Lasix] 60 mg IV NOW STA
11/23/24 13:00
Admit/Transfer Patient As Directed
Co-Sign Provider:
Level of Care: Inpatient admission
Assign to:: Telemetry
Physician / Group: gurdeep george
Diagnosis: Acute on chronic CHF,Acute hypoxic respiratory insufficiency
Reason for Telemetry: Arrhythmia
Date to Stop Telemetry: 11/26/24
Time to Stop Telemetry: 11:00
Reason for Hospitalization: Acute on chronic CHF,Acute hypoxic respiratory insufficiency
Expected length of stay greater than two midnights?: Yes
ELOS- Estimated Length of Stay in days: 3
I certify the patient meets the requirements for IP care: Yes
PRN Pain Medication Management As Directed
May give lesser potent ordered pain med per pt: Yes
preference::
Protocol:: Medication orders for pain may be administered in a
manner that supports deferring to patient preference
when the pt is:
- Requesting an ordered lesser potent pain medication.
Least to most potent pain medications are defined
as: acetaminophen < NSAID < tramadol < opioids
(morphine, oxycodone, hydromorphone).
- Requesting a lesser dose of the same medication IF
ORDERED.
- Requesting a less intrusive route of administration
if both routes are prescribed by the provider (PO <
IV).
11/23/24 13:01
Code Status As Directed
Resuscitation Status: Full Code
11/23/24 13:[address] Non Medication Order As Directed
Physician Order: Notify MD when med rec done
11/23/24 13:05
CARDIOLOGY CONSULT Routine
Consulting Provider: Shakir Barragan
Was physician already notified: Yes
11/23/24 16:00
Furosemide [Lasix] 60 mg IV BID AT 0800,1600
11/26/24 11:00
DC Protocol for Telemetry ONCE
Abnormal Lab Results
11/23/24 11/23/24
08:55 09:41
WBC 13.3 H 10^3/uL
(4.8-10.8)
RDW 15.4 H %
(11.5-14.5)
Abs Immat Gran (auto) 0.1 H 10^3/uL
(0-0.05)
Absolute Neuts (auto) 10.7 H 10^3/uL
(1.4-6.5)
Absolute Monos (auto) 1.0 H 10^3/uL
(0.1-0.6)
Neutrophils % 80.2 H %
(42.2-75.2)
Lymphocytes % 10.7 L %
(20.5-51.1)
PT 19.3 H Sec
(11.4-14.6)
APTT 63.2 H Sec
(23.4-35.0)
BUN 24 H mg/dl
(9-20)
Glucose 126 H mg/dl
(70-99)
Total Bilirubin 1.5 H mg/dl
(0.2-1.3)
11/23/24 08:55
11/23/24 08:55
Vital Signs
Initial and Last Documented VS:
Initial Vital Signs
Temp Pulse Resp BP Pulse Ox
97.7 F 103 18 134/97 94
11/23/24 08:38 11/23/24 08:38 11/23/24 08:38 11/23/24 08:38 11/23/24 08:38
Last Documented Vital Signs
Temp Pulse Resp BP Pulse Ox
97.7 F 106 21 123/93 96
11/23/24 08:38 11/23/24 10:42 11/23/24 09:30 11/23/24 10:42 11/23/24 09:30
Grants Officer consulted with Physician
Grants Officer consulted with physician?: Yes
Name of Physician Consulted: Jj
MDM/Problems Addressed
Differential Diagnosis Includes:
CHF, PNA,
MDM/Problems Addressed:
74 yo male w h/o Afib on Pradaxa, Cardiomyopathy, CHF, Defibrillator, HtN, HLD, Pacemaker, TIA, NPH w shunt, thyroid CA w partial thyroidectomy, presents for 'short of breath, CHF.' States gradually worsening SOB since yesterday, reporting 10 lb wt
gain since yesterday. 4 a.m. today had 'a little bit' of mid chest pressure. Denies n/v/d/c.
EKG: A-fib 110s to 120s with intermittent paced beats
O2 sat 94% room air, mildly tachypneic, placed on 2 L nasal cannula O2
Lungs CTA
9:45 AM:
CBC: Mild leukocytosis with left shift
CMP: No clinically significant abnormality
Troponin within normal limits
BNP 6450
Pacemaker check report read: No significant events
CXR: increased vascular markings consistent with CHF.
Flu neg
Covid neg
10:20 a.m.
Plan: Admit: Acute on Chronic CHF.
Hospitalist notified of admission
*EKG
EKG Intrepretation Date: 11/23/24
Interpretation: abnormal
Rate: tachycardiac
Rhythm: a-fib and ventricular paced
QRS Pattern: wide non-specific
Ischemia: no ischemia
*Critical Care Note
Total Time (30-74mins, 75-104mins- exclusive of procedures): Not Applicable
ED Attending Note
-
Portions of this chart may have been created with voice recognition software.� Occasional wrong word or��sound alike� substitutions may have occurred due to the inherent limitations of voice recognition software.
Discharge Plan
Departure
Patient Disposition: Admit
Date of Disposition: 11/23/24
Time of Disposition: 10:24
Admit to: Med/Surg
Presentation/result/management discussed w/ accepting MD/DO: Hospitalist
Condition: Fair
Covid-19: Negative COVID-19
Discharge Problem:
Acute on chronic diastolic CHF (congestive heart failure)
Interventions
Interventions:
*Risk Screen - Suicide Last Done: 11/23/24 08:38
*General Assessment Last Done: 11/23/24 08:38
*Neglect/Abuse Screening Last Done: 11/23/24 09:52
*ED- Fall Risk Assessment Last Done: 11/23/24 09:30
*ED COVID-19 Vaccine History Last Done: 11/23/24 08:38
ED- Cardiac Assessment Last Done: 11/23/24 09:30
ED- Pulmonary Assessment Last Done: 11/23/24 09:30
[2024-11-23 09:25] LABS: ALT (SGPT) 34 U/L (0-50); AST (SGOT) 31 U/L (17-59); Albumin 4.3 g/dl (3.5-5.0); Alkaline Phosphatase 103 U/L (38-126); Blood Urea Nitrogen 24 mg/dl (9-20); Calcium 9.6 mg/dl (8.4-10.2); Carbon Dioxide 28 mmol/L (22-30); Chloride 104 mmol/L (98-107); Glucose 126 mg/dl (70-99); Lipase 214 U/L (23-300); Potassium 3.7 mmol/L (3.5-5.1); Sodium 141 mmol/L (135-145); Total Bilirubin 1.5 mg/dl (0.2-1.3); Total Protein 7.5 g/dl (6.3-8.2); eGFR > 60.00
[2024-11-23 09:31] LABS: NT-proBNP 6450 pg/ml; Troponin I < 0.012 ng/ml
[2024-11-23 10:01] LABS: COVID-19 Antigen Negative (Negative)
[2024-11-23 10:03] LABS: PT 19.3 Sec (11.4-14.6)
[2024-11-23 10:04] LABS: APTT 63.2 Sec (23.4-35.0)
[2024-11-23] MEDS: LASIX 60 MG IV ×2 (10:42→16:09)
--- NOTE | 2024-11-23 13:06 | HPS.HSE ---
Family Physician
-
Family Physician: German Cleaning
Chief Complaint
-
Shortness of breath
History of Present Illness
73-year-old male with past medical history of nonischemic cardiomyopathy, chronic systolic heart failure, EF 20 to 25%, Medtronic BiV ICD, persistent atrial fibrillation, chronic oral anticoagulation with Pradaxa, history of CVA, hypertension,
anxiety, sleep apnea, thyroid cancer status post partial thyroidectomy, hip fracture came to the hospital with chest tightness and shortness of breath from past couple days. Per patient he ran out of Lasix at home. He also reported not being
compliant with low-salt diet. Patient also noted weight gain. Was given IV Lasix in the ED. Labs and exam consistent with CHF. Currently he denies any chest pain, abdominal pain, nausea, vomiting, diarrhea, constipation.
Medical History
Past Medical History
Past Medical History: Reports Arrhythmia (A-fib), Cancer (Thyroid), CHF, HTN, Hypercholesterolemia and Valvular Disease
Past Surgical History: Reports Cardiac
Social History
Tobacco: Non-smoker
Alcohol: None
Family History
Family History: Not pertinent
Allergies / Home Medications
Allergies reflects when Allergies were last updated in [facility].
Home Medications with original date entered in [facility]
Allergy/Medication List:
Allergies
Allergy/AdvReac Type Severity Reaction Status Date / Time
spironolactone Allergy gynecomasti Verified 11/23/24 08:43
[From Aldactone] a
Home Medications
dabigatran etexilate 150 mg capsule (Pradaxa) 150 mg PO BID Blood clot prevention/tx 02/11/21
sbybpdvuepy-amoazofrf-mnf C-Mn 500 mg-400 mg capsule (Glucosamine Chondroitin Maximum Strength) 1 cap PO BID Supplement 06/09/23
cholecalciferol (vitamin D3) 50 mcg (2,000 unit) tablet 50 mcg PO DAILY Supplement 04/24/24
empagliflozin 10 mg tablet (Jardiance) 10 mg PO DAILY DIABETES 04/24/24
semaglutide 0.25 mg or 0.5 mg (2 mg/3 mL) subcutaneous pen injector (Ozempic) 0.25 mg SC MO diabetes 04/24/24
zinc sulfate 50 mg zinc (220 mg) tablet 50 mg PO DAILY Supplement 04/24/24
amiodarone 100 mg tablet 100 mg PO DAILY Arrhythmia 04/25/24
escitalopram oxalate 20 mg tablet 20 mg PO DAILY #0 tabs 04/26/24
atorvastatin 40 mg tablet 40 mg PO DAILY High Cholesterol 05/01/24
furosemide 40 mg tablet 80 mg PO BID Fluid retention/Swelling 05/01/24
acetaminophen 500 mg tablet (Tylenol Extra Strength) 1,000 mg (2 x 500 mg) PO TID #1 tab 05/08/24
candesartan 8 mg tablet 8 mg PO DAILY Blood pressure #90 tabs 05/08/24
carvedilol 25 mg tablet 25 mg PO BID #1 tab 05/08/24
oxycodone 10 mg tablet 10 mg PO Q4HPRN PRN Moderate Pain #12 tabs 05/08/24
polyethylene glycol 3350 17 gram oral powder packet (HealthyLax) 17 g PO DAILYPRN PRN Constipation #14 ea 05/08/24
sennosides 8.6 mg tablet (Senna Laxative) 17.2 mg (2 x 8.6 mg) PO HS #1 tab 05/08/24
Medications on admission are unable to be verified or confirmed at this time.
If medication reconciliation has not been performed, why?: Medication List N/A
Review of Systems
-
History Source: Patient
A 12 point ROS was completed and negative except as noted: Yes
Respiratory: Reports Trouble Breathing
Physical Exam
Vital Signs
Vital Signs
Temp Pulse Resp BP Pulse Ox
97.7 F 106 21 123/93 96
11/23/24 08:38 11/23/24 10:42 11/23/24 09:30 11/23/24 10:42 11/23/24 09:30
Physical Exam
General: Well Nourished and No Apparent Distress
HEENT: NormoCephalic, Anicteric and Moist mucous membranes
Respiratory: Clear and Crackles; No Wheezes
Cardiac: S1/S2 and Regular Rhythm
Breast: Deferred by me
GI: Soft, Non Tender, Non Distended and Normal Bowel Sounds
Rectal: Deferred by Provider
Genito-urinary: Clear Urine; No Lobo
Musculoskeletal: Edema, Left Lower Extremity and Edema, Right Lower Extremity
Neuro: Awake, Alert, Oriented and AO x 3
Psych: Calm and Intact Judgment/Insight
Laboratory Results
-
11/23/24 08:55
11/23/24 08:55
Laboratory Results
PT 19.3 Sec (11.4-14.6) H 11/23/24 09:41
INR 1.60 11/23/24 09:41
APTT 63.2 Sec (23.4-35.0) H 11/23/24 09:41
Total Bilirubin 1.5 mg/dl (0.2-1.3) H 11/23/24 08:55
AST 31 U/L (17-59) 11/23/24 08:55
ALT 34 U/L (0-50) 11/23/24 08:55
Alkaline Phosphatase 103 U/L (38-126) 11/23/24 08:55
Troponin I < 0.012 ng/ml 11/23/24 08:55
Lipase 214 U/L (23-300) 11/23/24 08:55
Data Reviewed
-
Diagnostic Radiology: Report Reviewed by me and Discussed with Patient
Lab Data: Labs Reviewed by me and Discussed with Patient
Impression/Plan
-
Acute hypoxic respiratory insufficiency and shortness of breath secondary to acute on chronic congestive heart failure with reduced ejection fraction
Likely secondary to diet and medication noncompliance
Check echo
BNP elevated, Chest x-ray with interstitial pulmonary edema
Last echo 2023 with EF 20 to 25%
Consult cardiology
I's and O's, daily weight
Non ischemic cardiomyopathy
Chronic systolic HFrEF, 20-25%
s/p Medtronic Bi-V 06/09/23
Persistent AFib
vpaced rhythm
on pradaxa; continue
restart coreg once dose confirmed
History of CVA
History of hypertension
Anxiety
Sleep apnea
History of thyroid cancer status post partial thyroidectomy
DVT prophylaxis
Pradaxa
Full code
I spent a total of 77 minutes with the patient or on the floor. More than 50% of this time involved counseling and coordination of care.
--- NOTE | 2024-11-23 15:36 | CON.CAR ---
Addendum entered and electronically signed by Shakir Barragan MD 11/23/24 18:03:
Also can consider Entresto in place of candesartan
Addendum entered and electronically signed by Shakir Barragan MD 11/23/24 18:01:
74-year-old man with complex cardiac history admitted now with acute on chronic HFrEF in the setting of dietary indiscretion and missed diuretic doses.
PMH: HFrEF, permanent atrial fibrillation following four PVI's and eventually a convergent maze with left atrial appendage clip, in atrial fibrillation since June 2023 after failed dofetilide, BiV ICD 2022, brainstem stroke April 2024,
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
Outpatient meds: Reviewed
PSH: INDUSTRIAL TRUCK DRIVER shunt, gamma nail for left hip fracture April 2024, partial thyroidectomy, ICD
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
Remainder of history as below
156/96, pulse 100, respiratory rate 16, afebrile, weight is 98.4 kg, no acute distress, head neck exam unremarkable, few crackles in lung bases, JVD modestly elevated,Intermittently irregular, systolic murmur at apex, abdomen benign, trace to 1+
edema, neuro grossly nonfocal, affect may be flat
ECG: Atrial fibrillation, fusion beats, left bundle branch block
White count 13.3, hemoglobin 15.3, platelets 350, INR is 1.6, BUN and creatinine are 24 and 0.9, troponin is undetectable, proBNP is 6450
Chest x-ray cardiomegaly, CHF, possibly very small effusions, left atrial appendage occluder, ICD with LV lead
Echo April 2024: EF 20-25%, global hypokinesis, dilated RV, ICD wire, severely dilated atria, moderate MR, pulmonary artery systolic pressure 40-45 mercury
Impression:
Acute on chronic HFrEF
Permanent atrial fibrillation, relatively rapid ventricular response, possibly limiting MERCHANDISE HANDLER
Moderate mitral regurgitation
Brainstem stroke
Recent INDUSTRIAL TRUCK DRIVER shunt
History of multiple PVI's and convergent procedure, with surgical left atrial appendage occlusion
Obstructive sleep apnea
Anxiety/depression
Thyroid cancer
Left bundle branch block
Plan:
He presents with acute on chronic HFrEF possibly related to dietary indiscretion and noncompliance with diuretics.
In addition, he has a relatively rapid ventricular response to atrial fibrillation and this may limit effectiveness of MERCHANDISE HANDLER.
Will give IV Lasix.
Continue Ozempic and semaglutide, continue amiodarone and carvedilol. Amiodarone has presumably been used for rate control since atrial fibrillation is permanent
Interrogate ICD, if effective BiV pacing is reduced, uptitrate medical regimen for better rate control and higher percentage of biventricular pacing or even better ablation.
Consider spironolactone.
Original Note:
Consultation
Consultation Request
Date/Time Consultation Requested: 11/23/2024
Date/Time Consultation Performed: 11/23/2024
Requesting Provider: Dr. Yuan
Performing Provider: Aleja Malone PA-C for Shakir Barragan
Reason for Consultation: Heart failure
Medical History
-
History of Present Illness:
Patient is a 74-year-old male with PMH of chronic heart failure with reduced ejection fraction, cardiomyopathy, persistent atrial fibrillation with multiple PVI's including convergent maze procedure, left atrial appendage clipping, BiV ICD, chronic
anticoagulation maintained on Pradaxa, brainstem stroke April 2025, hypertension, anxiety/depression, sleep apnea, mechanical fall with left intertrochanteric hip fracture open reduction and internal fixation with cephalomedullary nail 05/03/2024
who presents to emergency department 11/23/2024 with progressively worsening shortness of breath, orthopnea/PND and weight gain. Patient admits over the last week he has been noncompliant with his diet eating out on 3 occasions including food,
[employer] food and a burger from [employer]. Unfortunately he ran out of his Lasix and Coreg and missed 3 doses last taken on the evening of 11/21/2024. Last night he developed orthopnea and PND and was uncomfortable sleeping. He did take a 2.5 mg of
metolazone this morning but symptoms persisted and he decided to come to emergency department. proBNP was found to be elevated at 6450. Chest x-ray showed interstitial pulmonary edema with small bilateral pleural effusions. Troponin negative.
EKG showed ventricular paced rhythm at 118 bpm. Patient's weight was up at least 9 pounds from prior office visit weight 2 weeks ago. He was provided 60 mg IV Lasix upon arrival with an additional dosing scheduled for 4 PM. He reports good
response with increased urination.
PMH:
Brainstem stroke April 2025
Chronic HFrEF, 20-25%
s/p Medtronic Bi-V ICD 06/09/23
Persistent AFib
multiple prior PVIs (2010, 2012, 2018, 2020)
Convergent Maze procedure w/LINNETTE clip (04/2021)
s/p CV 10/2022, 07/15/2023
Failed tikosyn (unable to maintain sinus rhythm)
Chronic OAC with Pradaxa
History of CVA
HTN
Anxiety
VERNON
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
History of mechanical fall with left intertrochanteric hip fracture open reduction and internal fixation with cephalomedullary nail 05/03/2024
Thyroid CA, s/p partial thyroidectomy
Past Medical History
Past Medical History: Other (See HPI)
Past Surgical History: Cardiac (Multiple PVIs with convergent Maze via subxiphoid approach 04/2021, multiple CV, BiVICD 05/2023, LA appendage occlusion with 50mm Box Atriclip device 04/21/21), Orthopedic ( left intertrochanteric hip fracture open
reduction and internal fixation with cephalomedullary nail 05/03/2024) and Other (s/p partial thyroidectomy, INDUSTRIAL TRUCK DRIVER shunt placement September 2024)
Social History
Tobacco: Former Smoker
Alcohol: Occasional
Drug: None
Personal:
Living: With Family
Employment: Employed
Family History
Family History: CAD, Hypertension and Other (Afib)
Allergies / Home Medications
Allergy/AdvReac Type Severity Reaction Status Date / Time
spironolactone Allergy gynecomasti Verified 11/23/24 08:43
[From Aldactone] a
�Medication �Instructions �Recorded �Confirmed �Type
dabigatran etexilate 150 mg 150 mg PO BID Blood clot 02/11/21 11/23/24 History
capsule (Pradaxa) prevention/tx
ftwhiipsksx-neywccjvq-xqg C-Mn 500 1 cap PO BID Supplement 06/09/23 11/23/24 History
mg-400 mg capsule (Glucosamine
Chondroitin Maximum Strength)
cholecalciferol (vitamin D3) 50 50 mcg PO DAILY Supplement 04/24/24 11/23/24 History
mcg (2,000 unit) tablet
empagliflozin 10 mg tablet 10 mg PO DAILY DIABETES 04/24/24 11/23/24 History
(Jardiance)
semaglutide 0.25 mg or 0.5 mg (2 0.5 mg SC MO diabetes 04/24/24 11/23/24 History
mg/3 mL) subcutaneous pen injector
(Ozempic)
zinc sulfate 50 mg zinc (220 mg) 50 mg PO DAILY Supplement 04/24/24 11/23/24 History
tablet
amiodarone 100 mg tablet 100 mg PO DAILY Arrhythmia 04/25/24 11/23/24 History
atorvastatin 40 mg tablet 40 mg PO DAILY High Cholesterol 05/01/24 11/23/24 History
furosemide 40 mg tablet 80 mg PO HS Fluid 05/01/24 11/23/24 History
retention/Swelling
candesartan 8 mg tablet 8 mg PO DAILY Blood pressure #90 05/08/24 11/23/24 Rx
tabs
carvedilol 25 mg tablet 25 mg PO BID #1 tab 05/08/24 11/23/24 Rx
polyethylene glycol 3350 17 gram 17 g PO DAILYPRN PRN Constipation 05/08/24 11/23/24 Rx
oral powder packet (HealthyLax) #14 ea
acetaminophen 500 mg tablet 1,000 mg PO Q6HPRN PRN mild pain 11/23/24 11/23/24 History
(Tylenol Extra Strength)
escitalopram oxalate 20 mg tablet 10 mg PO DAILY 11/23/24 11/23/24 History
furosemide 40 mg tablet 40 mg PO DAILY 11/23/24 11/23/24 History
oxycodone-acetaminophen 5 mg-325 1 tab PO Q6HPRN PRN severe pain 11/23/24 11/23/24 History
mg tablet
Review of Systems
-
History Source: Patient and Family ( at bedside)
All other systems: Negative unless noted
Physical Exam
Vital Signs
Temp Pulse Resp BP Pulse Ox
97.7 F 106 21 123/93 96
11/23/24 08:38 11/23/24 10:42 11/23/24 09:30 11/23/24 10:42 11/23/24 09:30
GEN: No distress, awake, Ox3, sitting in bed wearing oxygen
HEENT: supple, anicteric, mmm
LUNGS: Decreased breath sounds at bases with few scattered crackles CTA, no wheezes/rales
CV: Irregularly irregular,, tachycardic, S1/S2, 1/6 syst murmur
ABD: soft, BS+, NT/ND
EXT: +1 bilateral lower extremity edema
NEURO: Gross non-focal
SKIN: No rash, warm, dry, pink
Lab Results
11/23/24 08:55
11/23/24 08:55
Troponin I < 0.012 ng/ml 11/23/24 08:55
Ryq-A-Pxnoytghuoa Pept 6450 pg/ml 11/23/24 08:55
Impression / Plan
-
PCP: Leonides Cleaning MD
CDY: uJan Ramon Owens MD
IMPRESSION:
Presented 11/23/2024 with shortness of breath, orthopnea, PND and weight gain
Acute heart failure with reduced ejection fraction, proBNP 6450
Tachycardia
Noncompliance with medication
Brainstem stroke April 2024
Non ischemic cardiomyopathy
Chronic systolic HFrEF, 20-25%
s/p Medtronic Bi-V 06/09/23
Persistent AFib
multiple prior PVIs (2010, 2012, 2018, 2020)
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
s/p CV 10/2022, 07/15/2023
Failed tikosyn (unable to maintain sinus rhythm)
Chronic OAC with Pradaxa
History of CVA
HTN
Anxiety
VERNON
Thyroid CA, s/p partial thyroidectomy
History of mechanical fall resulting in s/p Left intertrochanteric hip fracture open reduction and internal fixation with cephalomedullary nail 05/03/2024
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
Echo 05/20/2023: moderately reduced LV systolic function with ejection fraction 30 to 35%.� Mild concentric LV.� Normal RV size.� Biatrial dilatation with severely enlarged left atrium and severely abnormal left atrial volume index.� Mild MR,
pulmonary artery pressure 55 mmHg
Echo 08/09/2023: EF 30 to 35%, global hypokinesis, ICD wire in RV, normal pericardium
ECHO 04/25/24: EF 20 to 25%, global hypokinesis, mild concentric LVH, enlarged RV size and reduced RV function, severely dilated atria, MAC, moderate MR, mild TR, PAP 40 to 45 mmHg, IVC dilated and does not collapse, interatrial septum intact with no
evidence of shunt
Plan:
Presented 11/23/2024 with shortness of breath, orthopnea, PND and weight gain
Acute heart failure with reduced ejection fraction, proBNP 6450 and chest x-ray with interstitial pulmonary edema and small bilateral effusions
-Admits to noncompliance with missing 3 doses of Lasix as he ran out
-Given 60 mg IV Lasix upon arrival with repeat 60 mg IV dosing in afternoon 11/23/2024. Patient reports good urinary response. Continue to monitor and assess response
-Patient reports baseline weight around 205-207 pounds.
-Patient currently requiring supplemental oxygen, wean as tolerated
-Continue GDMT with carvedilol, candesartan, Jardiance
-Last echo April 2024
-
Longstanding history of nonischemic cardiomyopathy
-Prior echo in April 2024. If patient still here on 11/26/2024 would consider repeating echo. If patient discharged prior then can can be performed as outpatient
-Continue GDMT as noted above
Permanent atrial fibrillation with numerous prior PVI's, convergent maze and failed cardioversions
-EKG shows ventricular paced rhythm, tachycardic which is likely to acute heart failure exacerbation as well as missing 3 doses of carvedilol, last dose 11/21/2024 in p.m.
-Would give 6.25 mg carvedilol stat now followed by his usual 25 mg carvedilol at 8 PM.
-Continue amiodarone for rate control
-Continue to monitor and trend heart rate on telemetry
-Continue Pradaxa 150 mg twice a day. This is anticoagulant of patient's choice
-TSH 3.60. Patient has history of treated thyroid cancer
Noncompliance with medication and dietary choices. Stressed importance of taking medication daily and trying to adhere to low-sodium diet
Data Reviewed
-
EKG: Report Reviewed by me, Discussed with Physician, Discussed with Patient and Discussed with Family
Radiology: Report Reviewed by me, Discussed with Physician, Discussed with Patient and Discussed with Family
Labs: Labs Reviewed by me, Discussed with Physician, Discussed with Patient and Discussed with Family
Old Records: Reviewed
[2024-11-23] MEDS: COREG 6.25 MG PO (16:09)
[2024-11-23] MEDS: TYLENOL 650 MG PO (16:59)
[2024-11-23] MEDS: PRADAXA 150 MG PO (20:18)
[2024-11-23] MEDS: COREG 25 MG PO (20:19)
[2024-11-24 03:00] VITALS: BP 126/88
[2024-11-24] MEDS: TYLENOL 650 MG PO (03:03)
[2024-11-24 06:00] VITALS: BMI 29.3
[2024-11-24 07:39] LABS: % Basophils 0.6 % (0-2); % Eosinophils 1.5 % (0-6); % Immature Granulocytes 0.5 % (0-0.5); % Lymphocytes 14.2 % (20.5-51.1); % Monocytes 10.9 % (1.7-9.3); % Neutrophils 72.3 % (42.2-75.2); Absolute Basophils 0.1 10^3/uL (0-0.2); Absolute Eosinophils 0.1 10^3/uL (0-0.7); Absolute Immature Granulocytes 0.1 10^3/uL (0-0.05); Absolute Lymphocytes 1.3 10^3/uL (1.2-3.4); Absolute Neutrophils 6.7 10^3/uL (1.4-6.5); Hematocrit 41.7 % (39.0-52.0); Hemoglobin 14.5 g/dL (13.0-18.0); Mean Corp Hgb Conc. 34.8 g/dL (33.0-37.0); Mean Corpuscular Hgb 30.7 pg (27.0-31.0); Mean Corpuscular Volume 88.3 fL (80.0-94.0); Mean Platelet Volume 9.4 fL (7.4-10.4); Nucleated Red Blood Cells % 0 % (-); Platelet Count 316 10^3/uL (130-400); Red Blood Cell Count 4.72 10^6/uL (4.70-6.10); Red Cell Dist. Width 14.9 % (11.5-14.5); White Blood Cell Count 9.3 10^3/uL (4.8-10.8)
[2024-11-24 07:42] VITALS: BP 126/77
[2024-11-24 07:53] LABS: Blood Urea Nitrogen 25 mg/dl (9-20); Calcium 9.6 mg/dl (8.4-10.2); Carbon Dioxide 33 mmol/L (22-30); Chloride 93 mmol/L (98-107); Estimated Creatinine Clearance 82 ml/min; Glucose 106 mg/dl (70-99); Potassium 3.4 mmol/L (3.5-5.1); Sodium 136 mmol/L (135-145); eGFR > 60.00
[2024-11-24] MEDS: FARXIGA 10 MG PO (09:13)
[2024-11-24] MEDS: ATACAND 8 MG PO (09:13)
[2024-11-24] MEDS: COREG 25 MG PO (09:14)
[2024-11-24] MEDS: PRADAXA 150 MG PO (09:14)
[2024-11-24] MEDS: LEXAPRO 10 MG PO (09:14)
[2024-11-24] MEDS: LASIX 60 MG IV (09:14)
[2024-11-24] MEDS: VITAMIN D3 (cholecalciferol) 50 MCG PO (09:14)
[2024-11-24] MEDS: LIPITOR 40 MG PO (09:14)
[2024-11-24] MEDS: PACERONE 100 MG PO (09:14)
--- NOTE | 2024-11-24 11:03 | W.PN.HOSP.TC ---
Addendum entered and electronically signed by Lino Valentin MD 11/24/24 14:54:
Addendum
Patient was seen by racket stringer, discussed with Dr. Abbasi. Patient's picked up his medications that were sent to pharmacy. Okay to go home.
Total discharge time spent to see the patient, examine the patient, review data and lab results, discuss discharge plan with patient and nursing staff around 65 minutes
Original Note:
Today's Communication/Plan
-
Wean off O2 if possible
IV Lasix
Replace K
Assessment / Plan
Assessment / Plan
Physical Exam
General: Well Nourished and No Apparent Distress
HEENT: Normocephalic, Anicteric and Moist mucous membranes
Respiratory: heard crackles.
Cardiac: S1/S2
GI: Soft, Non Tender
Rectal: No bleeding.
Genito-urinary: Clear Urine; No Lobo
Musculoskeletal: No edema Lower Extremities. + Varicose veins.
Neuro: Awake, Alert, Oriented and AO x 3
Psych: Calm and Intact Judgment/Insight
A/P
# Acute hypoxic respiratory insufficiency and shortness of breath secondary to acute on chronic congestive heart failure with reduced ejection fraction
Likely secondary to diet and medication noncompliance
He feels better
Will try to wean off O2
c/w IV Lasix
c/w Coreg, Farxiga.
Chest x-ray with interstitial pulmonary edema
Last echo 2023 with EF 20 to 25%
daily weight
# Chronic Non ischemic cardiomyopathy
Chronic systolic HFrEF, 20-25%
s/p Medtronic Bi-V 06/09/23
# Hypokalemia, replace
#Leukocytosis, resolved.
# Permanent AFib
V-paced rhythm
on Pradaxa; continue
restart Coreg once dose confirmed
History of CVA
History of hypertension
Anxiety
Sleep apnea
History of thyroid cancer status post partial thyroidectomy
DVT prophylaxis
Pradaxa
Full code
Total time spent to see the patient, examine the patient, review data and lab results, discuss treatment plan with patient and nursing staff around 55 minutes
Anticipated Discharge: Within 24 hours
Subjective/Interval History
-
Date of Service: November 24, 2024
No chest pain
Less sob
Objective Data
-
Labs:
Laboratory Results
11/24/24
06:46
WBC 9.3
Hgb 14.5
Hct 41.7
Plt Count 316
Sodium 136
Potassium 3.4 L
Chloride 93 L
Carbon Dioxide 33 H
BUN 25 H
Creatinine 0.8
Glucose 106 H
Calcium 9.6
Vital Signs:
Vital Signs
Temp Pulse Resp BP Pulse Ox
97.7 F 87 16 126/77 98
11/24/24 07:42 11/24/24 07:42 11/24/24 07:42 11/24/24 07:42 11/24/24 07:42
I&O
11/23/24 11/24/24 11/25/24
06:59 06:59 07:59
Intake Total 960 / 960
Output Total 1625 / 1625
Balance -665 / -665
[2024-11-24 11:25] VITALS: BP 111/80
--- NOTE | 2024-11-24 11:45 | W.PN.CARDCBS ---
Addendum entered and electronically signed by Criss Abbasi DO 11/24/24 18:37:
Reviewed cardiac PA assessment, documentation available data and agree with her plan. Patient was discharged prior to my independent assessment. He presented with heart failure with known reduced ejection fraction following medication
noncompliance. Volume status appears to have improved with IV Lasix. He was transition to oral Lasix and given education regarding the need for medication compliance, heart failure diet/fluid restriction and follow-up. Outpatient cardiac
follow-up has been arranged.
Original Note:
Today's Communication / Plan
-
Overall seems to be improving with good diuresis now appears euvolemic
Would transition to oral Lasix, prior outpatient dose 40 mg in a.m. 80 mg in afternoon which is patient's preference
Outpatient cardiology follow-up has been scheduled
Cardiology will sign off
Impression / Plan
-
PCP: Leonides Cleaning MD
CDY: Juan Ramon Owens MD
IMPRESSION:
Presented 11/23/2024 with shortness of breath, orthopnea, PND and weight gain
Acute heart failure with reduced ejection fraction, proBNP 6450
Tachycardia
Noncompliance with medication
Brainstem stroke April 2024
Non ischemic cardiomyopathy
Chronic systolic HFrEF, 20-25%
s/p Medtronic Bi-V 06/09/23
Persistent AFib
multiple prior PVIs (2010, 2012, 2018, 2020)
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
s/p CV 10/2022, 07/15/2023
Failed tikosyn (unable to maintain sinus rhythm)
Chronic OAC with Pradaxa
History of CVA
HTN
Anxiety
VERNON
Thyroid CA, s/p partial thyroidectomy
History of mechanical fall resulting in s/p Left intertrochanteric hip fracture open reduction and internal fixation with cephalomedullary nail 05/03/2024
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
Echo 05/20/2023: moderately reduced LV systolic function with ejection fraction 30 to 35%.� Mild concentric LV.� Normal RV size.� Biatrial dilatation with severely enlarged left atrium and severely abnormal left atrial volume index.� Mild MR,
pulmonary artery pressure 55 mmHg
Echo 08/09/2023: EF 30 to 35%, global hypokinesis, ICD wire in RV, normal pericardium
ECHO 04/25/24: EF 20 to 25%, global hypokinesis, mild concentric LVH, enlarged RV size and reduced RV function, severely dilated atria, MAC, moderate MR, mild TR, PAP 40 to 45 mmHg, IVC dilated and does not collapse, interatrial septum intact with no
evidence of shunt
Plan:
Presented 11/23/2024 with shortness of breath, orthopnea, PND and weight gain
Acute heart failure with reduced ejection fraction, proBNP 6450 and chest x-ray with interstitial pulmonary edema and small bilateral effusions
-Admits to noncompliance with missing 3 doses of Lasix and Coreg as he ran out
-Ongoing diuresis with 60 mg IV twice daily (got 3 doses in last 24 hours)
-Patient weight down considerably with improved edema, orthopnea/PND, appears euvolemic
-Current weight 198 pounds, patient reports baseline weight around 200-202 pounds.
-Oxygen has been weaned off
-Continue GDMT with carvedilol, candesartan, Jardiance
-Last echo April 2024, can be repeated as outpatient
Longstanding history of nonischemic cardiomyopathy
-Prior echo in April 2024. If patient still here on 11/26/2024 repeat echo. If patient discharged prior then can can be performed as outpatient
-Continue GDMT as noted above
Permanent atrial fibrillation with numerous prior PVI's, convergent maze and failed cardioversions
-EKG shows ventricular paced rhythm, tachycardic which is likely to acute heart failure exacerbation as well as missing 3 doses of carvedilol, last dose 11/21/2024 in p.m.
-Carvedilol resumed 11/23/2024 with better heart rate control
-Continue current outpatient dosing of amiodarone, Coreg
-Continue Pradaxa 150 mg twice a day. This is anticoagulant of patient's choice
-TSH 3.60. Patient has history of treated thyroid cancer
Noncompliance with medication and dietary choices. Stressed importance of taking medication daily and trying to adhere to low-sodium diet
.
Discussed with patient and patient's at bedside. Also discussed with nursing.
Patient is eager to go home. Outpatient cardiology follow-up has been arranged. Patient can be discharged from cardiac standpoint
Progress Note - Mental Tester
Subjective
Date of Service: November 24, 2024
Patient seen and examined. Patient sitting up in bed reports that he feels well. He notes resolved shortness of breath, orthopnea, PND and abdominal bloating
Objective
Labs:
11/24/24 06:46
11/24/24 06:46
Labs
Hgb 14.5 g/dL (13.0-18.0) 11/24/24 06:46
Hct 41.7 % (39.0-52.0) 11/24/24 06:46
Plt Count 316 10^3/uL (130-400) 11/24/24 06:46
PT 19.3 Sec (11.4-14.6) H 11/23/24 09:41
INR 1.60 11/23/24 09:41
APTT 63.2 Sec (23.4-35.0) H 11/23/24 09:41
Sodium 136 mmol/L (135-145) 11/24/24 06:46
Potassium 3.4 mmol/L (3.5-5.1) L 11/24/24 06:46
BUN 25 mg/dl (9-20) H 11/24/24 06:46
Creatinine 0.8 mg/dL (0.7-1.3) 11/24/24 06:46
Glucose 106 mg/dl (70-99) H 11/24/24 06:46
Troponins
11/23/24
08:55
Troponin I < 0.012
Vital Signs and I&O:
Vital Signs
Temp Pulse Resp BP Pulse Ox
97.7 F 89 17 111/80 92
11/24/24 11:25 11/24/24 11:25 11/24/24 11:25 11/24/24 11:25 11/24/24 11:25
Vital Signs
Temp Pulse Resp BP Pulse Ox
97.7 F 89 17 111/80 92
11/24/24 11:25 11/24/24 11:25 11/24/24 11:25 11/24/24 11:25 11/24/24 11:25
Intake & Output
11/22/24 11/23/24 11/24/24 11/25/24
06:59 06:59 06:59 07:59
Intake Total 960 / 960
Output Total 1625 / 1625
Balance -665 / -665
Physical Exam
Physical Exam
GEN: No distress, awake, Ox3
HEENT: supple, anicteric, mmm
LUNGS: CTA, no wheezes/rales
CV: Reg, S1/S2, 1/6 syst murmur
ABD: soft, BS+, NT/ND
EXT: No edema, clubbing or cyanosis
NEURO: Gross non-focal
SKIN: No rash, warm, dry, pink
[2024-11-24] MEDS: KCL 20 MEQ PO (13:58)
--- NOTE | 2024-11-24 14:49 | W.DCSUMMARY ---
Discharge Summary
Discharge Data
Date of Admission: 11/23/24
Date of Discharge: 11/24/24
-
Pending Results: No
Hospital Course
74 years old male presented with shortness of breath. Patient was diagnosed with acute on chronic heart failure with reduced ejection fraction in the setting of dietary indiscretion and missed diuretic doses. Chest x-ray showed radiological
findings consistent with interstitial pulmonary edema. Patient had leukocytosis with elevated proBNP at 6450. Negative troponin. Patient was evaluated by product sales engineer. He received intravenous Lasix. Patient started to feel better with
improvement in his symptoms. He did not need supplemental oxygen. Patient did not have gastrointestinal symptoms or chest pain. Patient has history of permanent atrial fibrillation. He was maintained on Pradaxa. Patient remained hemodynamically
stable and was discharged home in a stable condition.
Discharge Plan
-
Patient Disposition: Home (Routine Discharge)
Discharge Diagnosis/Procedures: You had shortness of breath, orthopnea, PND and weight gain
-Acute heart failure with reduced ejection fraction, proBNP 6450
Diet: 2 Gram Sodium
Referrals:
Aleja Malone PA-C [Specified Professional Personl] - 12/07/24 7:40 am (You have cardiology follow-up with Aleja Malone PA-C on December 07 at 7:40 AM [facility] [address] [facility] If you are unable to make this appointment please call [phone] to
reschedule)
German Cleaning MD [Family Provider] -
Prescriptions:
Continued
dabigatran etexilate [Pradaxa] 150 MG capsule
150 mg PO BID
trfmnymkroy-gfgvmbcbh-gis C-Mn [Glucosamine Chondroitin MaxStr] 500-400 mg Capsule
1 cap PO BID
Jardiance 10 mg tablet
10 mg PO DAILY
zinc sulfate 50 mg zinc (220 mg) Tablet
50 mg PO DAILY
cholecalciferol (vitamin D3) 50 mcg (2,000 unit) Tablet
50 mcg PO DAILY
Ozempic 0.25 mg or 0.5 mg (2 mg/3 mL) Pen Injector
0.5 mg SC MO
amiodarone 100 mg Tablet
100 mg PO DAILY
atorvastatin 40 mg tablet
40 mg PO DAILY
furosemide 40 mg tablet
80 mg PO HS
carvedilol 25 mg Tablet
25 mg PO BID Qty: 1 0RF
Rx Instructions:
dose decreased on this admission
polyethylene glycol 3350 [HealthyLax] 17 gram Powder In Packet
17 g PO DAILYPRN PRN (Reason: Constipation) Qty: 14 0RF
candesartan 8 mg Tablet
8 mg PO DAILY Qty: 90 3RF
Rx Instructions:
hold if sbp<110
furosemide 40 mg Tablet
40 mg PO DAILY
oxycodone-acetaminophen 5-325 mg Tablet
1 tab PO Q6HPRN PRN (Reason: severe pain)
acetaminophen [Tylenol Extra Strength] 500 mg tablet
1,000 mg PO Q6HPRN PRN (Reason: mild pain)
escitalopram oxalate 20 mg tablet
10 mg PO DAILY
Discharge Orders:
Discharge Patient (As Directed); Ordered 11/24/24
Ordered By: Lino Valentin
Discharge Date and Time
Print Language: MOROCCAN
[2024-11-24] MEDS: FLUAD (65 yr+) 2024-2025 FORMULA 0.5 ML IM (14:50)
[2024-11-24 14:56] VITALS: BP 96/60
== END 2024-11-24 15:02 | disposition home or self-care (01) | DRG 291 ==
LOC: 3 WEST ACU 13:37
PROVIDERS: Emergency Medicine; Registered Nurse; ADMITTING PHYSICIAN Internal Medicine; ATTENDING PHYSICIAN Internal Medicine; CONSULT PHYSICIAN Internal Medicine Cardiovascular Disease; EMERGENCY PHYSICIAN Student in an Organized Health Care Education/Training Program; FAMILY PHYSICIAN Internal Medicine Geriatric Medicine
DX: I11.0 Hypertensive heart disease with heart failure (principal); I50.23 Acute on chronic systolic (congestive) heart failure; G91.9 Hydrocephalus, unspecified; I48.21 Permanent atrial fibrillation; F32.A Depression, unspecified; F41.9 Anxiety disorder, unspecified; G47.33 Obstructive sleep apnea (adult) (pediatric); I25.10 Atherosclerotic heart disease of native coronary artery without angina pectoris; I42.8 Other cardiomyopathies; I44.7 Left bundle-branch block, unspecified; T50.1X6A Underdosing of loop [high-ceiling] diuretics, initial encounter; E89.0 Postprocedural hypothyroidism; E11.9 Type 2 diabetes mellitus without complications; E78.00 Pure hypercholesterolemia, unspecified; R09.02 Hypoxemia; R06.89 Other abnormalities of breathing; Z91.138 Patient's unintentional underdosing of medication regimen for other reason; Z98.2 Presence of cerebrospinal fluid drainage device; Z87.891 Personal history of nicotine dependence; Z86.73 Personal history of transient ischemic attack (TIA), and cerebral infarction without residual deficits; Z85.850 Personal history of malignant neoplasm of thyroid; Z79.899 Other long term (current) drug therapy; Z79.84 Long term (current) use of oral hypoglycemic drugs; Z79.85 Long-term (current) use of injectable non-insulin antidiabetic drugs; Z79.02 Long term (current) use of antithrombotics/antiplatelets; Z95.810 Presence of automatic (implantable) cardiac defibrillator; Z11.52 Encounter for screening for COVID-19
CPT/HCPCS: 71045; 80048; 80053; 83690; 83880; 84443; 84484; 85025; 85610; 85730; 87502; 87811; 90662; 93005; 93289; 96374; 99285; G0008

== ENCOUNTER → 2024-12-06 09:33 | Outpatient (REF) | payer BC, MEDICARE, SELFPAY ==
[2024-12-06 10:44] LABS: % Basophils 0.8 % (0-2); % Eosinophils 2.2 % (0-6); % Immature Granulocytes 0.8 % (0-0.5); % Lymphocytes 19.7 % (20.5-51.1); % Neutrophils 66.5 % (42.2-75.2); Absolute Basophils 0.1 10^3/uL (0-0.2); Absolute Eosinophils 0.2 10^3/uL (0-0.7); Absolute Immature Granulocytes 0.1 10^3/uL (0-0.05); Absolute Lymphocytes 1.5 10^3/uL (1.2-3.4); Absolute Monocytes 0.8 10^3/uL (0.1-0.6); Absolute Neutrophils 5.1 10^3/uL (1.4-6.5); Hematocrit 40.6 % (39.0-52.0); Hemoglobin 13.9 g/dL (13.0-18.0); Mean Corp Hgb Conc. 34.2 g/dL (33.0-37.0); Mean Corpuscular Hgb 30.7 pg (27.0-31.0); Mean Corpuscular Volume 89.6 fL (80.0-94.0); Mean Platelet Volume 9.1 fL (7.4-10.4); Nucleated Red Blood Cells % 0 % (-); Platelet Count 340 10^3/uL (130-400); Red Blood Cell Count 4.53 10^6/uL (4.70-6.10); Red Cell Dist. Width 14.9 % (11.5-14.5); White Blood Cell Count 7.7 10^3/uL (4.8-10.8)
[2024-12-06 11:13] LABS: Glycohemoglobin (HgbA1c) 4.9 % (4.0-5.6)
[2024-12-06 11:40] LABS: ALT (SGPT) 26 U/L (0-50); AST (SGOT) 23 U/L (17-59); Albumin 4.4 g/dl (3.5-5.0); Alkaline Phosphatase 96 U/L (38-126); Blood Urea Nitrogen 26 mg/dl (9-20); Calcium 9.5 mg/dl (8.4-10.2); Carbon Dioxide 32 mmol/L (22-30); Chloride 99 mmol/L (98-107); Glucose 78 mg/dl (70-99); HDL Cholesterol 48 mg/dl; LDL Cholesterol, Calculated 57 mg/dl; Potassium 3.7 mmol/L (3.5-5.1); Sodium 141 mmol/L (135-145); Total Bilirubin 1.5 mg/dl (0.2-1.3); Total Cholesterol 115 mg/dl (50-199); Total Protein 7.4 g/dl (6.3-8.2); Triglyceride 52 mg/dl (10-149); Very Low Density Lipoprotein 10 mg/dl (0-30); eGFR > 60.00
[2024-12-06 11:42] LABS: Microalbumin, Random Urine 1.2 mg/dl (0.6-1.7); Microalbumin/creatinine Ratio 16.5 mg/g
[2024-12-06 11:49] LABS: Prolactin 31.8 ng/ml (3.7-17.9)
== END ==
LOC: REG 09:33
PROVIDERS: ATTENDING PHYSICIAN Internal Medicine Geriatric Medicine
DX: E11.9 Type 2 diabetes mellitus without complications (principal); I48.0 Paroxysmal atrial fibrillation; I10 Essential (primary) hypertension; I42.8 Other cardiomyopathies; I42.0 Dilated cardiomyopathy; R00.1 Bradycardia, unspecified; Z91.81 History of falling; E55.9 Vitamin D deficiency, unspecified; N17.9 Acute kidney failure, unspecified; E66.9 Obesity, unspecified; N40.0 Benign prostatic hyperplasia without lower urinary tract symptoms; Z13.31 Encounter for screening for depression
CPT/HCPCS: 36415; 80053; 80061; 82043; 82570; 83036; 84146; 85025

== ENCOUNTER 2024-12-13 06:20 | Outpatient (RCR) | payer BC, SELFPAY | END 2024-12-13 23:59 | disposition home or self-care (01) | LOC: RPT 06:20 | PROVIDERS: ATTENDING PHYSICIAN Physician Assistant Medical; FAMILY PHYSICIAN Internal Medicine Geriatric Medicine | DX: G91.2 (Idiopathic) normal pressure hydrocephalus (principal); M25.552 Pain in left hip; Z73.6 Limitation of activities due to disability; R26.2 Difficulty in walking, not elsewhere classified; M62.81 Muscle weakness (generalized); M54.50 Low back pain, unspecified; Z98.2 Presence of cerebrospinal fluid drainage device; Z86.73 Personal history of transient ischemic attack (TIA), and cerebral infarction without residual deficits; Z98.890 Other specified postprocedural states | CPT/HCPCS: 70450; 97110; 97112; 97116; 97164; 97530 ==

== ENCOUNTER 2024-12-18 21:45 | Inpatient (IN) | payer BC, MEDICARE, SELFPAY ==
[2024-12-18 18:49] VITALS: BP 102/69
[2024-12-18 19:21] VITALS: BP 89/78
[2024-12-18 19:37] LABS: % Basophils 0.8 % (0-2); % Eosinophils 2.1 % (0-6); % Immature Granulocytes 0.6 % (0-0.5); % Lymphocytes 20.9 % (20.5-51.1); % Monocytes 12.5 % (1.7-9.3); % Neutrophils 63.1 % (42.2-75.2); Absolute Basophils 0.1 10^3/uL (0-0.2); Absolute Eosinophils 0.3 10^3/uL (0-0.7); Absolute Immature Granulocytes 0.1 10^3/uL (0-0.05); Absolute Lymphocytes 2.5 10^3/uL (1.2-3.4); Absolute Monocytes 1.5 10^3/uL (0.1-0.6); Absolute Neutrophils 7.5 10^3/uL (1.4-6.5); Hemoglobin 15.4 g/dL (13.0-18.0); Mean Corp Hgb Conc. 34.2 g/dL (33.0-37.0); Mean Corpuscular Volume 87.7 fL (80.0-94.0); Nucleated Red Blood Cells % 0 % (-); Platelet Count 392 10^3/uL (130-400); Red Blood Cell Count 5.13 10^6/uL (4.70-6.10); Red Cell Dist. Width 14.8 % (11.5-14.5); White Blood Cell Count 11.8 10^3/uL (4.8-10.8)
--- NOTE | 2024-12-18 19:54 | ED.GENMED ---
History of Present Illness
General
Chief Complaint: Blood Pressure Problem
Source: patient
Exam Limitations: none
Time Seen by Provider: 12/18/24 19:27
History of Present Illness
History of Present Illness:
74-year-old male was at physical therapy and noted to be hypotensive. Some lightheaded weakness last few days. No infectious symptoms no chest pain or shortness of breath. Patient did take a spironolactone 4 to 5 days ago because he felt like he
may be going into a touch of failure. He lost 12 pounds in the last 4 to 5 days. He did regain 3 to 4 pounds today. Decreased urine output today. Otherwise feels unremarkable.
Past History
Past History
ED Past Medical History: Arrthythmia (afib), Cancer (thyroid), HTN, Valvular disease (MVR), Psychiatric (anxiey) and Other (TIA, OA, kidney stones)
ED Past Surgical History: Cardiac (Cardiac ablation)
Social History
Tobacco: Non-smoker
Alcohol: None
Drug: None
Personal:
Living: with family
Employment: Employed
Family History
Family History: Other (Noncontributory)
Review of Systems
Review of Systems
All Other Systems: Not applicable
Respiratory: Reports no symptoms
Cardiac: Reports no symptoms
ABD/GI: Reports no symptoms
Phy Exam
Physical Exam
Physical Exam:
GENERAL: Alert and oriented in no apparent distress
EYE: Orbits normal.
NECK: Supple, no significant adenopathy.
ENT: Pharynx without erythema
CARDIAC: Regular rate and rhythm pacemaker upper chest wall
Lungs: Clear and equal
ABDOMEN: Soft, without focal tenderness or distention
NEUROLOGICAL: Alert and oriented , grossly non-focal
SKIN: Warm and dry, no rash or lesion, no discoloration, skin intact.
MUSCULOSKELETAL: No edema,no deformity.Good color
PSYCH: Normal and appropriate interaction.
Course
Orders/Labs/Results
Orders:
Orders
12/18/24 Breakfast
Sodium, 2 Gram
12/18/24 18:55
EKG [Electrocardiogram (*1)] Urgent
Reason for Study: Other
Other Reason for Exam: hypotension
12/18/24 18:56
EKG- Treatment ONCE
12/18/24 19:30
Complete Blood Count/With Diff Urgent
Comprehensive Metabolic Panel Urgent
Troponin I Urgent
12/18/24 19:53
CXR2 [CR Chest - 2 Views ] Urgent
Comment:
Reason For Exam: luightheaded hypotension
12/18/24 19:57
0.9% Sodium Chloride 500 ml [Nss] 500 ml IV BOLUS
12/18/24 21:12
Admit/Transfer Patient As Directed
Co-Sign Provider:
Level of Care: Inpatient admission
Assign to:: Telemetry
Physician / Group: Htay
Diagnosis: CAMILA
Reason for Telemetry: Subacute Heart Failure
Date to Stop Telemetry: 12/20/24
Time to Stop Telemetry: 11:00
Reason for Hospitalization: IVFs, Creatinine monitoring
Expected length of stay greater than two midnights?: Yes
ELOS- Estimated Length of Stay in days: 3
I certify the patient meets the requirements for IP care: Yes
PRN Pain Medication Management As Directed
May give lesser potent ordered pain med per pt: Yes
preference::
Protocol:: Medication orders for pain may be administered in a
manner that supports deferring to patient preference
when the pt is:
- Requesting an ordered lesser potent pain medication.
Least to most potent pain medications are defined
as: acetaminophen < NSAID < tramadol < opioids
(morphine, oxycodone, hydromorphone).
- Requesting a lesser dose of the same medication IF
ORDERED.
- Requesting a less intrusive route of administration
if both routes are prescribed by the provider (PO <
IV).
12/18/24 21:15
Code Status As Directed
Resuscitation Status: Full Code
Nursing to Place Non Medication Order As Directed
Physician Order: Postvoid residual
12/18/24 22:00
Flush (0.9% Sodium Chloride) [Flush (Nss)] See Dose Instructions IV PER PROTOCOL
12/18/24 22:09
Acetaminophen [Tylenol] 1,000 mg PO Q6HPRN PRN
12/18/24 22:09
Activity As Directed
Activity Level: Out of Bed- Chair
Bladder Scan As Directed
Follow Bladder Retention/Intermittent Cath Algorithm?: Yes
PRN if no void in __ hours: 6
Frequency: Per Retention Algorithm
If Bladder Scan Result >: 400
then:: Straight cath
I&O [Intake/ Output] As Directed
Frequency: q12h
Straight Cath As Directed
Frequency: Per Retention Algorithm
Additional Instructions: straight cath as needed per acute urinary retention algorithm for 24 hrs
Additional Instructions: for bladder scan greater than 400 mL
Vital Signs As Directed
Frequency: Per unit guidelines
Weight As Directed
Frequency: Daily
Cpap [RESP] Routine
Patient to use own unit?: No
Set Pressure (cm H2O): 8
Instructions: Titrate for patient's comfort
12/18/24 22:50
Urinalysis Reflex To Culture Urgent
Date Specimen was Collected: 12/18/24
Time Specimen was Collected: 22:46
12/19/24 06:00
Basic Metabolic Panel IN AM
Complete Blood Count/No Diff IN AM
Magnesium IN AM
TSH Reflex To Free T4 IN AM
12/19/24 08:00
Amiodarone [Pacerone] 100 mg PO DAILY
Atorvastatin [Lipitor] 40 mg PO DAILY
Carvedilol [Coreg] 25 mg PO BID
Dabigatran Etexilate Mesylate [Pradaxa] 150 mg PO BID
Escitalopram Oxalate [Lexapro] 10 mg PO DAILY
12/20/24 11:00
DC Protocol for Telemetry ONCE
Abnormal Lab Results
12/18/24
19:30
WBC 11.8 H 10^3/uL
(4.8-10.8)
RDW 14.8 H %
(11.5-14.5)
Abs Immat Gran (auto) 0.1 H 10^3/uL
(0-0.05)
Absolute Neuts (auto) 7.5 H 10^3/uL
(1.4-6.5)
Absolute Monos (auto) 1.5 H 10^3/uL
(0.1-0.6)
Immature Gran % 0.6 H %
(0-0.5)
Monocytes % 12.5 H %
(1.7-9.3)
Chloride 95 L mmol/L
(98-107)
BUN 78 H mg/dl
(9-20)
Creatinine 3.4 H mg/dL
(0.7-1.3)
Total Bilirubin 1.5 H mg/dl
(0.2-1.3)
12/18/24 19:30
12/18/24 19:30
Vital Signs
Initial and Last Documented VS:
Initial Vital Signs
Temp Pulse Resp BP Pulse Ox
97.8 F 81 18 102/69 99
12/18/24 18:49 12/18/24 18:49 12/18/24 18:49 12/18/24 18:49 12/18/24 18:49
Last Documented Vital Signs
Temp Pulse Resp BP Pulse Ox
97.8 F 86 15 107/68 92
12/18/24 18:49 12/18/24 20:45 12/18/24 20:45 12/18/24 20:00 12/18/24 20:15
MDM/Problems Addressed
Differential Diagnosis Includes:
Patient with mild hypotension. Clinically stable otherwise. In no distress. Clinically not in heart failure. No infectious symptoms. It sounds that he was over diuresed with a 12 pound weight loss in 5 days. Will carefully give fluids check
proBNP chest x-ray interrogate his pacemaker.
*Pulse Oximetry
Patient hypoxic: no
*EKG
Interpreted by ED Provider?: Yes
Interpretation: abnormal
Comparison EKG: changes noted
Heart Rate: 97
Rate: normal
Rhythm: other (Ventricular paced/underlying A-fib)
[place]: normal axis
Interval: normal interval
QRS Pattern: left vent hypertrophy
Ischemia: non-specific ST changes
*Histologic Aide Interpretation
Rate: normal
Interpretation: abnormal
Heart Rate: 90
Rhythm: other (Ventricular paced with underlying atrial fibrillation)
*Critical Care Note
Total Time (30-74mins, 75-104mins- exclusive of procedures): Not Applicable
Data Reviewed
Review of Other/Old Records Reveals: Labs, Records and Radiology Studies
Update Note
Update Note:
Patient with significant renal insufficiency. Likely all prerenal. Warrants admission with careful rehydration
ED Attending Note
-
Portions of this chart may have been created with voice recognition software.� Occasional wrong word or��sound alike� substitutions may have occurred due to the inherent limitations of voice recognition software.
Discharge Plan
Departure
Patient Disposition: Admit
Date of Disposition: 12/18/24
Time of Disposition: 20:45
Presentation/result/management discussed w/ accepting MD/DO: Hospitalist
Discharge Problem:
Prerenal renal failure, hypotension
Interventions
Interventions:
*Risk Screen - Suicide Last Done: 12/18/24 18:53
*General Assessment Last Done: 12/18/24 18:53
*Neglect/Abuse Screening Last Done: 12/18/24 18:53
*ED COVID-19 Vaccine History Last Done: 12/18/24 18:53
*Nursing Disposition Last Done: 12/18/24 21:57
ED- Cardiac Assessment Last Done: 12/18/24 19:32
ED- Neurological Assessment Last Done: 12/18/24 19:32
ED- Pulmonary Assessment Last Done: 12/18/24 19:32
Discharge Date and Time
Discharge Date/Time: 12/18/24 21:58
[2024-12-18 20:00] VITALS: BP 107/68
[2024-12-18 20:02] LABS: Troponin I 0.022 ng/ml
[2024-12-18 20:08] LABS: ALT (SGPT) 22 U/L (0-50); AST (SGOT) 22 U/L (17-59); Albumin 4.2 g/dl (3.5-5.0); Alkaline Phosphatase 106 U/L (38-126); Blood Urea Nitrogen 78 mg/dl (9-20); Calcium 9.3 mg/dl (8.4-10.2); Carbon Dioxide 30 mmol/L (22-30); Chloride 95 mmol/L (98-107); Glucose 72 mg/dl (70-99); Potassium 3.6 mmol/L (3.5-5.1); Sodium 138 mmol/L (135-145); Total Bilirubin 1.5 mg/dl (0.2-1.3); Total Protein 7.7 g/dl (6.3-8.2)
[2024-12-18] MEDS: NSS 500 IV (20:36)
--- NOTE | 2024-12-18 20:49 | HPS.HSE ---
Family Physician
-
Family Physician: [employer]
Chief Complaint
-
Dizziness and Low blood pressure
History of Present Illness
Patient is 74 y/o male past medical history of A-fib, CHF, prior brainstem stroke, NPH, thyroid cancer and anxiety who presents with dizziness and low blood pressure. Patient reports he has been having some episodes of dizziness for the last week,
and notes that his blood pressure has been running on the low side. Patient reports a 10lb weight gain on Tuesday so in addition to his usual Lasix dose he took a dose of metolazone and lost the weight by the next morning. He notes yesterday he
was feeling a little weak and with some dizziness, and noted symptoms to be worse today. While he was at physical therapy his blood pressure was very low and they sent him to the emergency department for evaluation.
Medical History
Past Medical History
Past Medical History: Reports Other
Additional Past Medical History:
Persistent Atrial Fibrillation
Chronic HFrEF
Brainstem Stroke
NPH
Hypertension
VERNON on CPAP
Thyroid Carcinoma
Anxiety / Depression
Obesity
Past Surgical History: Reports Other
Additional Past Surgical History:
PVI Ablation x 4
MAZE Procedure
PPM / AICD Placement
Partial Thyroidectomy
BODY WIRER Shunt
Left Hip Fracture Repair
Social History
Tobacco: Former Smoker (Quit smoking 10y ago. > 50 pack years total.)
Alcohol: None
Drug: None
Personal:
Living: With Family
Family History
Family History: Other (A-Fib in multiple family members.)
Allergies / Home Medications
Allergies reflects when Allergies were last updated in [facility].
Home Medications with original date entered in [facility]
Allergy/Medication List:
Allergies
Allergy/AdvReac Type Severity Reaction Status Date / Time
spironolactone Allergy gynecomasti Verified 12/18/24 18:51
[From Aldactone] a
Home Medications
dabigatran etexilate 150 mg capsule (Pradaxa) 150 mg PO BID Blood clot prevention/tx 02/11/21
hjqhwhpdsle-dpzpiryor-yzg C-Mn 500 mg-400 mg capsule (Glucosamine Chondroitin Maximum Strength) 1 cap PO BID Supplement 06/09/23
cholecalciferol (vitamin D3) 50 mcg (2,000 unit) tablet 50 mcg PO DAILY Supplement 04/24/24
empagliflozin 10 mg tablet (Jardiance) 10 mg PO HS DIABETES 04/24/24
semaglutide 0.25 mg or 0.5 mg (2 mg/3 mL) subcutaneous pen injector (Ozempic) 0.5 mg SC MO diabetes 04/24/24
zinc sulfate 50 mg zinc (220 mg) tablet 50 mg PO DAILY Supplement 04/24/24
amiodarone 100 mg tablet 100 mg PO DAILY Arrhythmia 04/25/24
atorvastatin 40 mg tablet 40 mg PO DAILY High Cholesterol 05/01/24
furosemide 40 mg tablet 80 mg PO HS Fluid retention/Swelling 05/01/24
candesartan 8 mg tablet 8 mg PO DAILY Blood pressure #90 tabs 05/08/24
carvedilol 25 mg tablet 25 mg PO BID #1 tab 05/08/24
polyethylene glycol 3350 17 gram oral powder packet (HealthyLax) 17 g PO DAILYPRN PRN Constipation #14 ea 05/08/24
acetaminophen 500 mg tablet (Tylenol Extra Strength) 1,000 mg PO Q6HPRN PRN mild pain 11/23/24
escitalopram oxalate 20 mg tablet 10 mg PO DAILY 11/23/24
furosemide 40 mg tablet 40 mg PO DAILY 11/23/24
oxycodone-acetaminophen 5 mg-325 mg tablet 1 tab PO Q6HPRN PRN severe pain 11/23/24
Review of Systems
-
A 12 point ROS was completed and negative except as noted: Yes
Constitutional: Denies Fever
Respiratory: Denies Cough or Trouble Breathing
Cardiac: Denies Chest Pain or Palpitations
Physical Exam
Vital Signs
Vital Signs
Temp Pulse Resp BP Pulse Ox
97.8 F 81 18 102/69 99
12/18/24 18:49 12/18/24 18:49 12/18/24 18:49 12/18/24 18:49 12/18/24 18:49
Physical Exam
General: Comfortable and Conversant
HEENT: Anicteric and Moist mucous membranes
Respiratory: Clear and Non Labored Respirations
Cardiac: S1/S2 and Irregular Rhythm; No Tachycardia
GI: Soft and Non Tender
Rectal: Deferred by Provider
Musculoskeletal: No Clubbing, No Cyanosis and No Edema
Skin: Warm and Dry
Neuro: Awake, Alert, Oriented and Nonfocal/grossly intact
Psych: Calm
Laboratory Results
-
12/18/24 19:30
12/18/24 19:30
Laboratory Results
Total Bilirubin 1.5 mg/dl (0.2-1.3) H 12/18/24 19:30
AST 22 U/L (17-59) 12/18/24 19:30
ALT 22 U/L (0-50) 12/18/24 19:30
Alkaline Phosphatase 106 U/L (38-126) 12/18/24 19:30
Troponin I 0.022 ng/ml 12/18/24 19:30
Data Reviewed
-
Lab Data: Labs Reviewed by me
Impression/Plan
-
Acute Kidney Injury suspect related to hypovolemia due to overdiuresis and hypotension
-Patient received 500mL NSS in ED - Given significant heart failure history will hold on further IVFs
-Hold Lasix, candesartan and Jardiance
-Consult Nephrology
-Recheck Labs in AM
SubAcute HFrEF (EF 20-25%)
-Patient took dose of metolazone over the weekend due to 10lb weight gain
-Consult Cardiology
-Lasix on hold due to CAMILA
-Monitor Daily Weights
Persistent Atrial Fibrillation
-Continue Coreg for rate control with hold parameters for low blood pressure
-Continue amiodarone
-Continue Pradaxa
Hyperlipidemia
-Continue atorvastatin
Anxiety / Depression
-Continue Lexapro
Obstructive Sleep Apnea
-Continue CPAP
Obesity
-Patient using Ozempic as outpatient
Hx Brainstem Stroke - Apr 2024
Hx Thyroid Carcinoma s/p Partial Thyroidectomy
Hx NPH s/p BODY WIRER Shunt
DVT proph: Pradaxa
Code Status: Full Code
[2024-12-18 21:01] VITALS: BMI 28.9
--- NOTE | 2024-12-18 21:27 | W.PN.UPDATE ---
Update Note
Progress Note Update
This note serves as an addendum to the H&P by marble worker TESSA Felisa COLBY
HPI
74M HX chr HFrEF, NICM with LVEF 20 - 25, on Candesartan, Zaroxolyn PRN a and PO lasix 120mg total daily, persistent A-fib status post multiple PVI/convergent maze procedure, left atrial appendage clip, biventricular ICD, CVA, HTN , VERNON seen at ER:
- At PT and noted to be hypotensive.
- Some lightheaded weakness last few days.
- did take Metolazone 4 to 5 days ago due to wt gain
- He lost 12 pounds in the last 4 to 5 days.
- regain 3 to 4 pounds today.
- Decreased urine output today.
PHX
Chronic systolic HFrEF, 20-25%
s/p Medtronic Bi-V ICD 06/09/23
Persistent AFib
multiple prior PVIs (2010, 2012, 2018, 2020)
Convergent Maze procedure w/LINNETTE clip (04/2021)
s/p CV 10/2022, 07/15/2023
Failed Tikosyn (unable to maintain sinus rhythm)
Chronic OAC with Pradaxa
History of CVA
HTN
Anxiety
VERNON
Thyroid CA, s/p partial thyroidectomy
ACID PUMP OPERATOR shunt for NPH
Vital Signs
Temp Pulse Resp BP Pulse Ox
97.8 F 86 15 107/68 92
12/18/24 18:49 12/18/24 20:45 12/18/24 20:45 12/18/24 20:00 12/18/24 20:15
PE
Gen: NAD , not toxic
HEENT: anicteric , moist OM
Neck: supple
Lungs; symmetric AE :
Cor: RRR S1 S2 - V paced rhythm
Abdomen: soft NT NG NRT
MECHANICAL MAINTENANCE TECHNICIAN: AAO3, NFND
MS:no edema
Psych: appropriate
12/06/24 12/18/24
10:03 19:30
WBC 11.8 H
Chloride 95 L
BUN 78 H
Creatinine 1.2 3.4 H
eGFR > 60.00 18.30
Glucose 72
EKG
ATRIAL FIBRILLATION WITH FREQUENT ventricular-paced complexes
LEFT VENTRICULAR HYPERTROPHY WITH QRS WIDENING AND REPOLARIZATION ABNORMALITY
( Sokolow-Marcus , Erasto product )
ABNORMAL ECG
WHEN COMPARED WITH ECG OF 23-NOV-2024 08:47,
VENT. RATE HAS DECREASED BY 21 BPM
05/20/2023 TTE
- moderately reduced LV systolic function with ejection fraction 30 to 35%.
- Mild concentric LV.
- Normal RV size.
- Biatrial dilatation with severely enlarged left atrium and severely abnormal left atrial volume index.
- Mild MR, pulmonary artery pressure 55 mmHg
Last hospitalist admission: 11/23/24 - 11/24/24
DC DX: Acute heart failure with reduced ejection fraction
ASSESSMENT & PLAN
Pre renal CAMILA suspect accidental overdiuresis
Hypovolemia and Hypotensive due to dehydration
- hold candesartan
- hold Frusemide and Metolazone
- Hold Jardiance
- s/p 500c of NS at ER on gentle infusion
- Renal consult
Chronic HFrEF, with LVEF 20-25% on GDMT
s/p Medtronic Bi-V 06/09/23
Chronic NICM
- Hold Frusemide, Metolazone and Candesartan
- on TECHNOLOGIES DIVISION CHAIR Carvedilol with hold index for SBP < 110
- DCA card consult
Permanent A Fib
V-paced rhythm
- on Pradaxa
- on TECHNOLOGIES DIVISION CHAIR Coreg with hold for SBP < 110
Currently hypotensive
Benign hypertension
- Holding Candesartan, Frusemide, Metolazone
- Hold Carvedilol if SBP < 110
HX NPH
has ACID PUMP OPERATOR shunt
HX CVA
Anxiety
Sleep apnea
HX thyroid cancer status post partial thyroidectomy
DVT Px:on Pradaxa
Full code
IP TLM
[2024-12-18 22:45] VITALS: BP 101/64; BMI 28.1
[2024-12-18 22:58] LABS: Urine Albumin 1+ (Neg - Trace); Urine Bilirubin Negative (Negative); Urine Character Clear (Clear); Urine Color Yellow; Urine Glucose 2+ (Negative); Urine Ketone Negative (Negative); Urine Leukocyte Negative (Negative); Urine Nitrite Negative (Negative); Urine Occult Blood Negative (Negative); Urine Urobilinogen Negative (Neg - 1+)
[2024-12-18] MEDS: TYLENOL 1000 MG PO (23:43)
[2024-12-18 23:51] VITALS: PULSE 2; PULSE 85
[2024-12-18 23:56] LABS: Urine Hyaline Cast >15 /LPF (0-2); Urine Red Blood Cell 0-2 /HPF (0-2)
[2024-12-18 23:57] LABS: Urine Bacteria Few (Negative)
[2024-12-19] VITALS (7 sets, daily range): BP systolic 92–124; BP diastolic 52–93; PULSE 2; BMI 28.0
--- NOTE | 2024-12-19 03:51 | PTCARENOTE ---
Patient arrived to floor from ED. Patient ambulated from stretcher to room. Patient oriented to room. Call rucker within reach, bed in the lowest position. Will continue to monitor.
[2024-12-19 07:39] LABS: Hematocrit 39.9 % (39.0-52.0); Hemoglobin 13.9 g/dL (13.0-18.0); Mean Corp Hgb Conc. 34.8 g/dL (33.0-37.0); Mean Corpuscular Hgb 30.5 pg (27.0-31.0); Mean Corpuscular Volume 87.7 fL (80.0-94.0); Mean Platelet Volume 9.3 fL (7.4-10.4); Platelet Count 304 10^3/uL (130-400); Red Blood Cell Count 4.55 10^6/uL (4.70-6.10); Red Cell Dist. Width 14.7 % (11.5-14.5)
[2024-12-19 07:50] LABS: Blood Urea Nitrogen 73 mg/dl (9-20); Calcium 8.8 mg/dl (8.4-10.2); Carbon Dioxide 28 mmol/L (22-30); Chloride 100 mmol/L (98-107); Estimated Creatinine Clearance 28 ml/min; Glucose 80 mg/dl (70-99); Magnesium 2.6 mg/dl (1.6-2.3); Potassium 3.1 mmol/L (3.5-5.1); Sodium 140 mmol/L (135-145); eGFR 26.47
--- NOTE | 2024-12-19 07:57 | CON.CAR ---
Addendum entered and electronically signed by Subhash Miguel MD 12/19/24 10:05:
I saw and examined the patient.
The Aboriginal Ceremonial Celebrant's note was reviewed and I agree with the note.
Comment: Briefly, 74-year-old man past medical history of permanent atrial fibrillation and heart failure with reduced ejection fraction presenting with symptomatic hypotension and oliguria found to have acute kidney injury.
Patient tells me that his weight was up approximately 14 pounds related to dietary indiscretion this past week. He took a dose of metolazone which resulted in robust diuresis. Following this tells me he was oliguric. For the past few days has
been experiencing lightheadedness and dizziness and presented to physical therapy last evening and was found to be hypotensive. They directed him to the emergency department for evaluation. There he was found to have acute kidney injury with
creatinine of 3.4 up from his baseline around 1.0.
Patient tells me he feels better and has begun urinating again. Creatinine has improved to 2.4 today.
Hold home candesartan and Jardiance, can be resumed as an outpatient.
Hold on lasix today with tentative plan to resume tomorrow.
Chronically maintained on Pradaxa given history of permanent A-fib. Would dose reduce today given acute kidney injury but can likely resume on full dose at discharge if renal function recovers.
Check echo to reassess LV function and filling pressures
Rest per Ivonne Eaton
Original Note:
Consultation
Consultation Request
Date/Time Consultation Requested: 12/18/24 at 2209
Date/Time Consultation Performed: 12/19/24 at 0734
Requesting Provider: Dr. Decker
Performing Provider: Dr. Miguel
Reason for Consultation: Dizzy and hypotensive
Medical History
-
History of Present Illness:
Patient came to [facility] yesterday from outpatient PT with symptomatic hypotension and cardiology is consulted for h/o CHF. Patient reports he attends regular PT sessions for his left hip and has not been having any issues at PT until yesterday when he
felt dizzy and was noted to be hypotensive and was referred to the ER. Patient has a longstanding history of HFrEF and his most recent admission for acute HF was earlier this month and he was diuresed with Lasix 60 mg IV BID and was then discharged
to home on Lasix 40 mg AM and 80 mg PM. Patient then missed his hospital follow-up appointment at the cardiology office on 12/07/2024. Had noted a weight gain this past Tuesday so he took a dose of metolazone 2.5 mg x 1 and felt as though he had a
tremendous diuresis over the next couple of days which correlated with a 12 lb weight loss. Patient then noted that his weight was up prior to going to PT yesterday and while at PT he felt dizzy and he was hypotensive and was referred to the ER.
In the ER his creatinine was elevated at 3.4 and his creatinine is generally in the 0.9-1.1 range. Patient was admitted. No prior level was checked and they also did not interrogate his device.
PMH:
Chronic HFrEF
Chronic systolic HFrEF, 20-25% by echo 04/25/24
Non ischemic cardiomyopathy
Permanent Afib
Brainstem stroke April 2024
Chronic OAC with Pradaxa
s/p Medtronic Bi-V/ICD 06/09/23
Persistent AFib
multiple prior PVIs (2010, 2012, 2018, 2020)
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
s/p CV 10/2022, 07/15/2023
Failed Tikosyn (unable to maintain sinus rhythm)
chronic amiodarone for adjunct rate control
HTN
Anxiety
VERNON
Thyroid CA, s/p partial thyroidectomy
History of mechanical fall resulting in s/p Left intertrochanteric hip fracture open reduction and internal fixation with cephalomedullary nail 05/03/2024
Normal pressure hydrocephalus status post RADIOTELEPHONE TECHNICAL OPERATOR shunt September 2024 at [facility]
Past Medical History
Past Medical History: Other (in HPI)
Past Surgical History: Cardiac (Multiple PVIs with convergent Maze via subxiphoid approach 04/2021, multiple CV, BiVICD 05/2023, LA appendage occlusion with 50mm Box Atriclip device 04/21/21), Orthopedic ( left intertrochanteric hip fracture open
reduction and internal fixation with cephalomedullary nail 05/03/2024) and Other (s/p partial thyroidectomy, RADIOTELEPHONE TECHNICAL OPERATOR shunt placement September 2024)
Social History
Tobacco: Former Smoker
Alcohol: Occasional
Drug: None
Personal:
Living: With Family
Employment: Employed
Family History
Family History: CAD, Hypertension and Other (Afib)
Allergies / Home Medications
Allergy/AdvReac Type Severity Reaction Status Date / Time
spironolactone Allergy gynecomasti Verified 12/18/24 18:51
[From Aldactone] a
�Medication �Instructions �Recorded �Confirmed �Type
dabigatran etexilate 150 mg 150 mg PO BID Blood clot 02/11/21 12/18/24 History
capsule (Pradaxa) prevention/tx
athovjlqaww-dmrjuzkdt-jaf C-Mn 500 1 cap PO BID Supplement 06/09/23 12/18/24 History
mg-400 mg capsule (Glucosamine
Chondroitin Maximum Strength)
cholecalciferol (vitamin D3) 50 50 mcg PO DAILY Supplement 04/24/24 12/18/24 History
mcg (2,000 unit) tablet
empagliflozin 10 mg tablet 10 mg PO HS DIABETES 04/24/24 12/18/24 History
(Jardiance)
semaglutide 0.25 mg or 0.5 mg (2 0.5 mg SC MO diabetes 04/24/24 12/18/24 History
mg/3 mL) subcutaneous pen injector
(Ozempic)
zinc sulfate 50 mg zinc (220 mg) 50 mg PO DAILY Supplement 04/24/24 12/18/24 History
tablet
amiodarone 100 mg tablet 100 mg PO DAILY Arrhythmia 04/25/24 12/18/24 History
atorvastatin 40 mg tablet 40 mg PO DAILY High Cholesterol 05/01/24 12/18/24 History
furosemide 40 mg tablet 80 mg PO HS Fluid 05/01/24 12/18/24 History
retention/Swelling
candesartan 8 mg tablet 8 mg PO DAILY Blood pressure #90 05/08/24 12/18/24 Rx
tabs
carvedilol 25 mg tablet 25 mg PO BID #1 tab 05/08/24 12/18/24 Rx
polyethylene glycol 3350 17 gram 17 g PO DAILYPRN PRN Constipation 05/08/24 12/18/24 Rx
oral powder packet (HealthyLax) #14 ea
acetaminophen 500 mg tablet 1,000 mg PO Q6HPRN PRN mild pain 11/23/24 12/18/24 History
(Tylenol Extra Strength)
escitalopram oxalate 20 mg tablet 10 mg PO DAILY Mental 11/23/24 12/18/24 History
Health/Anxiety
furosemide 40 mg tablet 40 mg PO DAILY Fluid 11/23/24 12/18/24 History
Retention/Swelling
oxycodone-acetaminophen 5 mg-325 1 tab PO Q6HPRN PRN severe pain 11/23/24 12/18/24 History
mg tablet
Review of Systems
-
History Source: Patient
All other systems: Negative unless noted
Physical Exam
Vital Signs
Temp Pulse Resp BP Pulse Ox
98.2 F 89 20 92/52 97
12/19/24 07:35 12/19/24 07:35 12/19/24 07:35 12/19/24 07:35 12/19/24 07:35
GEN: NAD. AAOx3
HEENT: EOMI, MMM
LUNGS: RA. CTA B/L, no wheeze
CV: V paced with underlying Afib on tele. Reg, S1/S2, 1/6 syst murmur
ABD: soft, BS+, NT, ND
EXT: No edema B/L LE
NEURO: Gross non-focal
SKIN: No rash, warm, dry, pink
Lab Results
12/19/24 06:40
12/19/24 06:40
Troponin I 0.022 ng/ml 12/18/24 19:30
Impression / Plan
-
PCP: Leonides Cleaning MD
CDY: Juan Ramon Owens MD
Impression:
Admitted with symptomatic hypotension and CAMILA 12/18/24
Recent admission for acute HF 11/23/24 until 11/24/24
CAMILA
Possible acute HFrEF
Chronic systolic HFrEF, 20-25% by echo 04/25/24
Non ischemic cardiomyopathy
Permanent Afib
Brainstem stroke April 2024
Chronic OAC with Pradaxa
s/p Medtronic Bi-V/ICD 06/09/23
Persistent AFib
multiple prior PVIs (2010, 2012, 2018, 2020)
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
s/p CV 10/2022, 07/15/2023
Failed Tikosyn (unable to maintain sinus rhythm)
chronic amiodarone for adjunct rate control
HTN
Anxiety
VERNON
Thyroid CA, s/p partial thyroidectomy
History of mechanical fall resulting in s/p Left intertrochanteric hip fracture open reduction and internal fixation with cephalomedullary nail 05/03/2024
Normal pressure hydrocephalus status post RADIOTELEPHONE TECHNICAL OPERATOR shunt September 2024 at [facility]
Echo 05/20/2023: moderately reduced LV systolic function with ejection fraction 30 to 35%.� Mild concentric LV.� Normal RV size.� Biatrial dilatation with severely enlarged left atrium and severely abnormal left atrial volume index.� Mild MR,
pulmonary artery pressure 55 mmHg
Echo 08/09/2023: EF 30 to 35%, global hypokinesis, ICD wire in RV, normal pericardium
ECHO 04/25/24: EF 20 to 25%, global hypokinesis, mild concentric LVH, enlarged RV size and reduced RV function, severely dilated atria, MAC, moderate MR, mild TR, PAP 40 to 45 mmHg, IVC dilated and does not collapse, interatrial septum intact with no
evidence of shunt
Plan:
-Patient came to [facility] yesterday from outpatient PT with symptomatic hypotension and cardiology is consulted for h/o CHF. Patient reports he attends regular PT sessions for his left hip and has not been having any issues at PT until yesterday when
he felt dizzy and was noted to be hypotensive and was referred to the ER. Patient has a longstanding history of HFrEF and his most recent admission for acute HF was earlier this month and he was diuresed with Lasix 60 mg IV BID and was then
discharged to home on Lasix 40 mg AM and 80 mg PM. Patient then missed his hospital follow-up appointment at the cardiology office on 12/07/2024. Had noted a weight gain this past Tuesday so he took a dose of metolazone 2.5 mg x 1 and felt as
though he had a tremendous diuresis over the next couple of days which correlated with a 12 lb weight loss. Patient then noted that his weight was up prior to going to PT yesterday and while at PT he felt dizzy and he was hypotensive and was
referred to the ER. In the ER his creatinine was elevated at 3.4 and his creatinine is generally in the 0.9-1.1 range. Patient was admitted. No prior level was checked and they also did not interrogate his device.
-ECG reviewed by me looks V paced with underlying A-fib
-I interrogated the patient's device this morning and he has known permanent A-fib with 100% burden. His battery longevity is greater than 9 years and his OptiVol has been trending up since mid November.
-Check proBNP, ordered by me.
-CXR reviewed by me shows a small left pleural effusion without obvious acute HF
-Patient was given 500 mL IVF bolus in the ER overnight and his outpatient dose of Lasix 40 mg AM and 80 mg PM remains on hold. Cre was 3.4, but now improved to 2.5.
-Outpatient dose of Coreg 25 mg BID has been continued
-Outpatient dose of candesartan 8 mg daily is on hold
-Outpatient dose of Jardiance 10 mg daily is on hold due to CAMILA
-Patient has known permanent A-fib despite previous PVI, convergent maze, AAD and CV.
-Outpatient dose of amiodarone 100 mg daily for adjunct rate control has been continued
-Outpatient dose of Pradaxa 150 mg BID has been continued
[2024-12-19] MEDS: LEXAPRO 10 MG PO (08:31)
[2024-12-19] MEDS: PRADAXA 150 MG PO (08:31)
[2024-12-19] MEDS: PACERONE 100 MG PO (08:31)
[2024-12-19] MEDS: LIPITOR 40 MG PO (08:32)
[2024-12-19] MEDS: COREG PO (08:38)
--- NOTE | 2024-12-19 08:43 | W.CARD.DEVCH ---
Cardiac Device Check
-
Device: Pacemaker (Bi-V ICD)
Interlocking And Signal Mechanic: [email or web address]
The patient's device was interrogated with assistance of the device sales account representative followed by a complete physician review. The device had normal function. No abnormalities seen.
Device check performed by me on 12/19/24, 9.2 years battery longevity, no VT/VF, 100% Afib, V pacing less than 90%, Optivol trending up since mid November
--- NOTE | 2024-12-19 10:38 | CM ---
Patient seen at bedside.
dx: CAMILA
Patient was currently attending outpatient PT at post acute care nurse practitioner at and was sent to ED as he states he had B/P issue
IA completed
Lives in a 2 story home with and son, no steps to enter, flight to second floor bedroom
PLOF: Independent with walker
Denies hh/has had Rehab at [facility]
PCP: Leonides Cleaning
Pharmacy: [facility] [address]
PLAN: CM to follow hospital progression for needs, was currently attending outpaient PT
--- NOTE | 2024-12-19 10:38 | W.CON.NEPH ---
Consultation
-
Date/Time Consultation Requested: 12/19/2024 7:00 AM
Date/Time Consultation Performed: 12/19/2024 10:30 AM
Requesting Provider: Dr. Lynn
Performing Provider: Dr. Watson
Reason for Consultation: Acute kidney injury
Medical History
-
Chief Complaint: Acute kidney injury
History of Present Illness:
The patient is a 74-year-old male with a past medical history of congestive heart failure maintained on Lasix therapy. The patient is also maintained on Jardiance in the setting of his congestive heart. he has a history of atrial fibrillation and
is maintained on carvedilol amiodarone and Pradaxa. He has had a prior brainstem CVA. He also has an indwelling PARTS WASHER shunt for hydrocephalus . His hypertension has been managed with carvedilol and candesartan. The patient reports he has been having
some episodes of dizziness for the last week, and notes that his blood pressure has been running on the low side. Patient reports a 10lb weight gain on Tuesday so in addition to his usual Lasix dose he took a dose of metolazone and lost the weight
by the next morning. He states he had a profound diuresis and weight loss following that intervention with his additional diuretic. He notes yesterday he was feeling a little weak and with some dizziness, and noted symptoms to be worse today.
While he was at physical therapy his blood pressure was very low and they sent him to the emergency department for evaluation. On presentation he was in acute renal failure with a creatinine of 3.4 off his previous baseline 1.2 as of 12/06/2024.
Nephrology was consulted for acute kidney injury.
Past Medical History
Chronic HFrEF
Chronic systolic HFrEF, 20-25% by echo 04/25/24
Non ischemic cardiomyopathy
Permanent Afib
Brainstem stroke April 2024
Chronic OAC with Pradaxa
s/p Medtronic Bi-V/ICD 06/09/23
Persistent AFib
multiple prior PVIs (2010, 2012, 2018, 2020)
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
s/p CV 10/2022, 07/15/2023
Failed Tikosyn (unable to maintain sinus rhythm)
chronic amiodarone for adjunct rate controlHTN
Anxiety
VERNON
Thyroid CA, s/p partial thyroidectomy
History of mechanical fall resulting in s/p Left intertrochanteric hip fracture open reduction and internal fixation with cephalomedullary nail 05/03/2024
Normal pressure hydrocephalus status post PARTS WASHER shunt September 2024 at [facility]
Social History
Tobacco: Former Smoker
Alcohol: Occasional
Family History
no CKD
Allergies / Home Medications
Allergy/AdvReac Type Severity Reaction Status Date / Time
spironolactone Allergy gynecomasti Verified 12/18/24 18:51
[From Aldactone] a
�Medication �Instructions �Recorded �Confirmed �Type
dabigatran etexilate 150 mg 150 mg PO BID Blood clot 02/11/21 12/18/24 History
capsule (Pradaxa) prevention/tx
xtaqltrubfi-ongencdyn-cgq C-Mn 500 1 cap PO BID Supplement 06/09/23 12/18/24 History
mg-400 mg capsule (Glucosamine
Chondroitin Maximum Strength)
cholecalciferol (vitamin D3) 50 50 mcg PO DAILY Supplement 04/24/24 12/18/24 History
mcg (2,000 unit) tablet
empagliflozin 10 mg tablet 10 mg PO HS DIABETES 04/24/24 12/18/24 History
(Jardiance)
semaglutide 0.25 mg or 0.5 mg (2 0.5 mg SC MO diabetes 04/24/24 12/18/24 History
mg/3 mL) subcutaneous pen injector
(Ozempic)
zinc sulfate 50 mg zinc (220 mg) 50 mg PO DAILY Supplement 04/24/24 12/18/24 History
tablet
amiodarone 100 mg tablet 100 mg PO DAILY Arrhythmia 04/25/24 12/18/24 History
atorvastatin 40 mg tablet 40 mg PO DAILY High Cholesterol 05/01/24 12/18/24 History
furosemide 40 mg tablet 80 mg PO HS Fluid 05/01/24 12/18/24 History
retention/Swelling
candesartan 8 mg tablet 8 mg PO DAILY Blood pressure #90 05/08/24 12/18/24 Rx
tabs
carvedilol 25 mg tablet 25 mg PO BID #1 tab 05/08/24 12/18/24 Rx
polyethylene glycol 3350 17 gram 17 g PO DAILYPRN PRN Constipation 05/08/24 12/18/24 Rx
oral powder packet (HealthyLax) #14 ea
acetaminophen 500 mg tablet 1,000 mg PO Q6HPRN PRN mild pain 11/23/24 12/18/24 History
(Tylenol Extra Strength)
escitalopram oxalate 20 mg tablet 10 mg PO DAILY Mental 11/23/24 12/18/24 History
Health/Anxiety
furosemide 40 mg tablet 40 mg PO DAILY Fluid 11/23/24 12/18/24 History
Retention/Swelling
oxycodone-acetaminophen 5 mg-325 1 tab PO Q6HPRN PRN severe pain 11/23/24 12/18/24 History
mg tablet
Review of Systems
-
All other systems: Negative unless noted
Constitutional: Weight Loss and Fatigue
Respiratory: No Symptoms
Cardiac: No Symptoms
: Other (Decreased urine output)
Musculoskeletal: No Symptoms
Physical Exam
Vital Signs
Vital Signs
Temp Pulse Resp BP Pulse Ox
98.2 F 89 20 92/52 97
12/19/24 07:35 12/19/24 07:35 12/19/24 07:35 12/19/24 07:35 12/19/24 07:35
Lab Results
12/19/24 06:40
12/19/24 06:40
WBC 9.0 10^3/uL (4.8-10.8) 12/19/24 06:40
RBC 4.55 10^6/uL (4.70-6.10) L 12/19/24 06:40
Hgb 13.9 g/dL (13.0-18.0) 12/19/24 06:40
Hct 39.9 % (39.0-52.0) 12/19/24 06:40
Plt Count 304 10^3/uL (130-400) D 12/19/24 06:40
Sodium 140 mmol/L (135-145) 12/19/24 06:40
Potassium 3.1 mmol/L (3.5-5.1) L 12/19/24 06:40
Chloride 100 mmol/L (98-107) 12/19/24 06:40
Carbon Dioxide 28 mmol/L (22-30) 12/19/24 06:40
BUN 73 mg/dl (9-20) H 12/19/24 06:40
Creatinine 2.5 mg/dL (0.7-1.3) H 12/19/24 06:40
eGFR 26.47 12/19/24 06:40
Glucose 80 mg/dl (70-99) 12/19/24 06:40
Calcium 8.8 mg/dl (8.4-10.2) 12/19/24 06:40
Albumin 4.2 g/dl (3.5-5.0) 12/18/24 19:30
Physical Exam
General: AOx3, Nontoxic , NAD
HEENT: PERRL, EOMI, Anicteric, Conjunctivae Clear, Ear/Nose Intact, Hearing Normal, Oropharynx Clear/Moist, Dentition Intact, Facial Symmetry, Neck Supple, Neck: Trachea Midline, No JVD and No Thyromegaly, no Bruits
Respiratory: Clear to auscultation bilaterally with normal lung excursion
Cardiac: S1/S2 and Regular Rate/Rhythm , chest wall exam notes left anterior pacemaker
Breast: Deferred by me
Abdomen: Soft, Nontender, Nondistended, Normal Bowel Sounds and No Hepatosplenomegaly
Rectal: Deferred by Provider
Genito-urinary: No Costovertebral Tenderness
Extremities: No Clubbing, No Cyanosis and No Edema
Skin: No Rash or open lesions
Neuro: Nonfocal/Grossly Intact, CN II-XII (Intact) and Strength (Musculoskeletal exam 5 out of 5 both upper and lower extremities)
Hematologic/Lymphatic: No Cervical Lymphadenopathy, No Submandibular Lymphadenopathy and No Supraclavicular Lymphadenopathy
Psych: Mood/afflect pleasant, Insight/judgement good and Appropriate
Vascular: plus 2 pedal and radial pulses
Data Reviewed
-
Radiology: Image Personally Visualized and interpreted (Chest x-ray personally reviewed notable for left anterior chest wall pacemaker device no evidence of congestive heart failure)
Medical Tests (Nuc Med, Echo etc): Other (EKG report reviewed from date 12/18/2024: AFIB with vpaced complexes at 97 bpm per report)
Labs: Labs Reviewed by me (BMP CBC)
Old Records: Reviewed (Reviewed old records in the electronic medical record from date 12/11/2024 noted creatinine 1.2)
Assessment/Plan
-
Impression:
CAMILA
Admitted with symptomatic hypotension and CAMILA
Recent admission for acute HF 11/23/24 until 11/24/24
Chronic systolic HFrEF, 20-25% by echo 04/25/24
Non ischemic cardiomyopathy
Permanent Afib
Brainstem stroke April 2024
Chronic OAC with Pradaxa
s/p Medtronic Bi-V/ICD 06/09/23
Persistent AFib
Anxiety
VERNON
Thyroid CA, s/p partial thyroidectomy
History of mechanical fall resulting in s/p Left intertrochanteric hip fracture open reduction and internal fixation with cephalomedullary nail 05/03/2024
Normal pressure hydrocephalus status post PARTS WASHER shunt September 2024 at [facility]
Plan:
CAMILA:
-Likely prerenal mediated in the setting of hypotension induced from overdiuresis in the presence of both SGLT 2 inhibitor and AMY antagonist
-Withholding ARB and Jardiance and Lasix at this time
-Patient appears to be compensated from volume standpoint as there is no evidence of hypervolemia
-Creatinine slowly improving with jehovah's witness of hemodynamic
-Urinalysis notes no evidence of blood but 1+ albuminuria
-Will quantitate proteinuria tomorrow
-Follow BMP
-Accurate I's and O's, no need for diagnostic imaging of kidneys at this time as long as patient remains nonoliguric with improving renal function
--- NOTE | 2024-12-19 12:19 | W.PN.HOSP.TC ---
Today's Communication/Plan
-
Monitor kidney function
Assessment / Plan
Assessment / Plan
Impression:
Patient is 74 years old with history of chronic systolic CHF, permanent A-fib, stroke, defibrillator who came to the ER with symptomatic hypotension and dizziness secondary to overdiuresis.
Noted to have elevated creatinine at 3.4, repeat 2.5.
Seen by both nephrology and cardiology, plan to hold further diuresis.
Received gentle hydration in the ER but no further fluid.
Assessment/plan:
Acute Kidney Injury
Prerenal azotemia secondary to hypotension and overdiuresis
Status post 500mL NSS in the ER.
No further IV fluid.
Seen by both nephrology and cardiology.
Plan to hold Lasix, candesartan and Jardiance
Monitor creatinine
Chronic systolic congestive heart failure
No evidence of volume overload,
Holding diuretic
Daily weight.
Strict I's and O's.
Consulted cardiology.
Most recent echo 04/25/2024 shows :
Normal left ventricular size. Mild concentric left ventricular hypertrophy.
Severely reduced left ventricular systolic function. Global hypokinesis. LV
ejection fraction is 20-25% by visual estimation. Diastolic function
indeterminate due to atrial fibrillation.
Enlarged right ventricular size. Reduced right ventricular systolic function.
ICD wire seen in right ventricle.
Severely dilated atria.
Persistent Atrial Fibrillation
Coreg for rate control with hold parameters for low blood pressure
Continue amiodarone
Continue Pradaxa (renally adjusted dose)
Hyperlipidemia
Continue atorvastatin
Anxiety / Depression
-Continue Lexapro
Obstructive Sleep Apnea
-Continue CPAP
Obesity
-Patient using Ozempic as outpatient
CODE STATUS: Full code
DVT prophylaxis: Pradaxa
Diet: Cardiac diet
Total time spent on today's encounter was 65 minutes which included time spent in counseling the patient/family regarding diagnosis and treatment plan as listed above, goals of care, and symptom management. Case was discussed with nursing staff,
specialists, and care coordinators/case management. All labs and imaging personally reviewed by me. Remainder the time spent in detailed review of previous records, lab data, imaging, and other medical provider documentation.
Anticipated Discharge: 24 - 48 hours
Subjective/Interval History
-
Date of Service: December 19, 2024
Patient seen and examined at bedside, overall feeling better.
Denies any chest pain or shortness of breath, no abdominal pain, no nausea, no vomiting, no diarrhea or constipation.
Creatinine improved to 2.5
Low potassium level, replaced.
Objective Data
-
Labs:
Laboratory Results
12/19/24
06:40
WBC 9.0
Hgb 13.9
Hct 39.9
Plt Count 304 D
Sodium 140
Potassium 3.1 L
Chloride 100
Carbon Dioxide 28
BUN 73 H
Creatinine 2.5 H
Glucose 80
Calcium 8.8
Vital Signs:
Vital Signs
Temp Pulse Resp BP Pulse Ox
98.1 F 83 16 97/59 96
12/19/24 10:51 12/19/24 10:51 12/19/24 10:51 12/19/24 10:51 12/19/24 10:51
Physical Exam
-
General: Well Developed, Well Nourished, No Apparent Distress and Comfortable
HEENT: Normocephalic, Atraumatic, Moist Mucous Membranes, No Ptosis, PERRLA and Nose Appears Normal
Respiratory: Clear to Auscultation and Non Labored Respirations
Cardiac: S1/S2 and Irregular Rhythm
Breast: Deferred by me
GI: Soft, Nontender, Nondistended and Normal Bowel Sounds
Genito-urinary: No Costovertebral Tender
Musculoskeletal: No Clubbing, No Cyanosis and No Edema
Skin: Warm
Neuro: Awake, Alert, Oriented, AO x 3 and No Motor Deficits
Psych: Calm
Data Reviewed
-
Diagnostic Radiology: Image personally visualized and interpreted and Report Reviewed by me
CT Scan: Image personally visualized and interpreted and Report Reviewed by me
Ultrasound: Image personally visualized and interpreted and Report Reviewed by me
MRI: Image personally visualized and interpreted and Report Reviewed by me
Medical Tests (Nuc Med, Echo etc): Image personally visualized and interpreted and Report Reviewed by me
Labs: Labs Reviewed by me
Old Records: Reviewed
--- NOTE | 2024-12-19 19:20 | PTCARENOTE ---
Pt given klor-con packets earlier in water for K+ of 3.1. Pt. instructed and educated on the importance of drinking his Klor-con. Pt. agreeable and stated he would drink it. This RN noticed at change of shift pt. Klor-con drinks were put off to the
side with old food tray and he did not drink them. This RN notified MD and PARVEEN that pt is refusing to drink it. Prior documentation changed to 'not given' in NOV.
[2024-12-19] MEDS: KCL 40 MEQ PO (19:32)
[2024-12-19] MEDS: COREG 25 MG PO (20:52)
[2024-12-19] MEDS: PRADAXA 75 MG PO (20:54)
[2024-12-19] MEDS: TYLENOL 1000 MG PO (22:56)
[2024-12-20 00:15] VITALS: PULSE 2; PULSE 91
[2024-12-20 03:00] VITALS: BP 111/71
[2024-12-20 05:55] VITALS: BMI 27.8
[2024-12-20 06:48] LABS: Hematocrit 41.2 % (39.0-52.0); Hemoglobin 14.3 g/dL (13.0-18.0); Mean Corp Hgb Conc. 34.7 g/dL (33.0-37.0); Mean Corpuscular Hgb 30.4 pg (27.0-31.0); Mean Corpuscular Volume 87.5 fL (80.0-94.0); Platelet Count 293 10^3/uL (130-400); Red Blood Cell Count 4.71 10^6/uL (4.70-6.10); Red Cell Dist. Width 14.6 % (11.5-14.5); White Blood Cell Count 7.2 10^3/uL (4.8-10.8)
[2024-12-20 07:13] LABS: Blood Urea Nitrogen 55 mg/dl (9-20); Calcium 9.2 mg/dl (8.4-10.2); Carbon Dioxide 29 mmol/L (22-30); Chloride 103 mmol/L (98-107); Estimated Creatinine Clearance 47 ml/min; Glucose 85 mg/dl (70-99); Potassium 3.6 mmol/L (3.5-5.1); Sodium 140 mmol/L (135-145); eGFR 48.85
[2024-12-20 07:15] VITALS: BP 109/72
[2024-12-20 07:24] VITALS: BMI 27.8
[2024-12-20] MEDS: LEXAPRO 10 MG PO (08:19)
[2024-12-20] MEDS: PRADAXA 75 MG PO (08:19)
[2024-12-20] MEDS: LIPITOR 40 MG PO (08:19)
[2024-12-20] MEDS: PACERONE 100 MG PO (08:20)
[2024-12-20] MEDS: COREG 25 MG PO (08:20)
--- NOTE | 2024-12-20 09:55 | W.PN.NEPH.PH ---
Today's Communication / Plan
-
Stable for discharge
BMP early next week to cardiology and PCP
Assessment/Plan
-
Impression:
CAMILA
Admitted with symptomatic hypotension and CAMILA
Recent admission for acute HF 11/23/24 until 11/24/24
Chronic systolic HFrEF, 20-25% by echo 04/25/24
Non ischemic cardiomyopathy
Permanent Afib
Brainstem stroke April 2024
Chronic OAC with Pradaxa
s/p Medtronic Bi-V/ICD 06/09/23
Persistent AFib
Anxiety
VERNON
Thyroid CA, s/p partial thyroidectomy
History of mechanical fall resulting in s/p Left intertrochanteric hip fracture open reduction and internal fixation with cephalomedullary nail 05/03/2024
Normal pressure hydrocephalus status post SECURITY SYSTEMS INSTALLER shunt September 2024 at [facility]
Plan:
CAMILA:
-Likely prerenal mediated in the setting of hypotension induced from overdiuresis in the presence of both SGLT 2 inhibitor and AMY antagonist
-Creatinine now improved to 1.5
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
-I would hold ARB at discharge given low MAP
-Okay to restart Lasix and SGLT2 inhibitor
-Discussed with cardiology
-
-
Date of Service: December 20, 2024
CC / HPI / ROS
-
Chief Complaint:
Acute kidney
History of Present Illness:
Remains hemodynamically low side off ARB
Creatinine down to 1.5
Review of Systems:
Nonoliguric
No chest pain or shortness of breath
Labs
-
Labs:
WBC 7.2 10^3/uL (4.8-10.8) 12/20/24 06:13
RBC 4.71 10^6/uL (4.70-6.10) 12/20/24 06:13
Hgb 14.3 g/dL (13.0-18.0) 12/20/24 06:13
Hct 41.2 % (39.0-52.0) 12/20/24 06:13
Plt Count 293 10^3/uL (130-400) 12/20/24 06:13
Sodium 140 mmol/L (135-145) 12/20/24 06:13
Potassium 3.6 mmol/L (3.5-5.1) 12/20/24 06:13
Chloride 103 mmol/L (98-107) 12/20/24 06:13
Carbon Dioxide 29 mmol/L (22-30) 12/20/24 06:13
BUN 55 mg/dl (9-20) H 12/20/24 06:13
Creatinine 1.5 mg/dL (0.7-1.3) H 12/20/24 06:13
eGFR 48.85 12/20/24 06:13
Glucose 85 mg/dl (70-99) 12/20/24 06:13
Calcium 9.2 mg/dl (8.4-10.2) 12/20/24 06:13
Albumin 4.2 g/dl (3.5-5.0) 12/18/24 19:30
Physical Exam
-
Vital Signs:
Vital Signs
Temp Pulse Resp BP Pulse Ox
97.9 F 83 16 109/72 93
12/20/24 07:15 12/20/24 07:15 12/20/24 07:15 12/20/24 07:15 12/20/24 07:15
Cardiovascular:: Regular rate and rhythm
Respiratory:: Bilateral: CTA
Lung Excursion:: Normal
Abdomen:: Nontender
Bowel Sounds:: Normal
Extremity Edema:: None: Bilateral:
Lobo Catheter: No
--- NOTE | 2024-12-20 10:01 | PN.CDI ---
CDI
- -
CDI:
Physician Documentation Request
Admit Date: 12/18/24 21:45
Dear Doctor Jeronimo,
12/18 CXR: 'There is slight blunting of the left costophrenic angle which may represent a trace pleural effusion, decreased from prior.'
12/19 Cardiology PN: 'Possible acute HFrEF, Chronic systolic HFrEF, 20-25% by echo 04/25/24'
12/19 Hospitalist PN: 'Seen by both nephrology and cardiology, plan to hold further diuresis. Received gentle hydration in the ER but no further fluid...Chronic systolic congestive heart failure, No evidence of volume overload'
Please provide further specificity regarding the most likely acuity of CHF you are evaluating, treating or monitoring.
Acuity
Acute
Chronic
Acute on Chronic
Unable to Determine
Use of terms such as suspected, likely, concern for, or probable (associated with a specific diagnosis that is being evaluated, monitored, or treated as if it exists) are acceptable and can be coded in the inpatient setting, when documented at the
time of discharge.
Thank you,
Citlalli Dobson RN, BSN
CDI Specialist
Available via [place] text
Please use your independent medical judgment in providing your response.
--- NOTE | 2024-12-20 10:07 | W.PN.HOSP.TC ---
Today's Communication/Plan
-
discharge home today
Assessment / Plan
Assessment / Plan
Impression:
Patient is 74 years old with history of chronic systolic CHF, permanent A-fib, stroke, defibrillator who came to the ER with symptomatic hypotension and dizziness secondary to overdiuresis.
Noted to have elevated creatinine at 3.4, repeat 2.5.
Seen by both nephrology and cardiology, plan to hold further diuresis.
Received gentle hydration in the ER but no further fluid.
Assessment/plan:
Acute Kidney Injury
Prerenal azotemia secondary to hypotension and overdiuresis
Status post 500mL NSS in the ER.
No further IV fluid.
Seen by both nephrology and cardiology.
Plan to hold Lasix, candesartan and Jardiance
Monitor creatinine
-Creatinine continues to improve, discussed with nephrology who recommended to resume Lasix and SGLT2 and hold off losartan on discharge
4/
Creatinine continues to improve, discussed with nephrology who recommended to resume Lasix and SGLT2 and hold off losartan on discharge
Chronic systolic congestive heart failure
No evidence of volume overload,
Holding diuretic
Daily weight.
Strict I's and O's.
Consulted cardiology.
Most recent echo 04/25/2024 shows :
Normal left ventricular size. Mild concentric left ventricular hypertrophy.
Severely reduced left ventricular systolic function. Global hypokinesis. LV
ejection fraction is 20-25% by visual estimation. Diastolic function
indeterminate due to atrial fibrillation.
Enlarged right ventricular size. Reduced right ventricular systolic function.
ICD wire seen in right ventricle.
Severely dilated atria.
4/
Resume Lasix
Persistent Atrial Fibrillation
Coreg for rate control with hold parameters for low blood pressure
Continue amiodarone
Continue Pradaxa (renally adjusted dose)
Hyperlipidemia
Continue atorvastatin
Anxiety / Depression
-Continue Lexapro
Obstructive Sleep Apnea
-Continue CPAP
Obesity
-Patient using Ozempic as outpatient
CODE STATUS: Full code
DVT prophylaxis: Pradaxa
Diet: Cardiac diet
Total time spent on today's encounter was 65 minutes which included time spent in counseling the patient/family regarding diagnosis and treatment plan as listed above, goals of care, and symptom management. Case was discussed with nursing staff,
specialists, and care coordinators/case management. All labs and imaging personally reviewed by me. Remainder the time spent in detailed review of previous records, lab data, imaging, and other medical provider documentation.
Anticipated Discharge: Today
Subjective/Interval History
-
Date of Service: December 20, 2024
Patient seen and examined at bedside, denies any chest pain or shortness of breath, no abdominal pain, no nausea, no vomiting, no diarrhea or constipation.
Objective Data
-
Labs:
Laboratory Results
12/20/24
06:13
WBC 7.2
Hgb 14.3
Hct 41.2
Plt Count 293
Sodium 140
Potassium 3.6
Chloride 103
Carbon Dioxide 29
BUN 55 H
Creatinine 1.5 H
Glucose 85
Calcium 9.2
Vital Signs:
Vital Signs
Temp Pulse Resp BP Pulse Ox
97.9 F 83 16 109/72 93
12/20/24 07:15 12/20/24 07:15 12/20/24 07:15 12/20/24 07:15 12/20/24 07:15
I&O
12/19/24 12/20/24 12/21/24
06:59 06:59 06:59
Intake Total 1280 / 1760 480 / 480
Output Total 1200 / 2000 800 / 800
Balance 80 / -240 -320 / -320
Physical Exam
-
General: Well Developed, Well Nourished, No Apparent Distress and Comfortable
HEENT: Normocephalic, Atraumatic, Moist Mucous Membranes, No Ptosis, PERRLA and Nose Appears Normal
Respiratory: Clear to Auscultation and Non Labored Respirations
Cardiac: S1/S2 and Irregular Rhythm
Breast: Deferred by me
GI: Soft, Nontender, Nondistended and Normal Bowel Sounds
Genito-urinary: No Costovertebral Tender
Musculoskeletal: No Clubbing, No Cyanosis and No Edema
Skin: Warm
Neuro: Awake, Alert, Oriented, AO x 3 and No Motor Deficits
Psych: Calm
Data Reviewed
-
Diagnostic Radiology: Image personally visualized and interpreted and Report Reviewed by me
CT Scan: Image personally visualized and interpreted and Report Reviewed by me
Ultrasound: Image personally visualized and interpreted and Report Reviewed by me
MRI: Image personally visualized and interpreted and Report Reviewed by me
Medical Tests (Nuc Med, Echo etc): Image personally visualized and interpreted and Report Reviewed by me
Labs: Labs Reviewed by me
Old Records: Reviewed
--- NOTE | 2024-12-20 10:16 | W.DCSUMMARY ---
Discharge Summary
Discharge Data
Date of Admission: 12/18/24
Date of Discharge: 12/20/24
-
Pending Results: No
Hospital Course
Hospital course
Patient is 74 years old with history of chronic systolic CHF, permanent A-fib, stroke, defibrillator who came to the ER with symptomatic hypotension and dizziness secondary to overdiuresis.
Noted to have elevated creatinine at 3.4, repeat 2.5.
Seen by both nephrology and cardiology, plan to hold further diuresis.
Received gentle hydration in the ER but no further fluid.
Assessment/plan:
Acute Kidney Injury
Prerenal azotemia secondary to hypotension and overdiuresis
Status post 500mL NSS in the ER.
No further IV fluid.
Seen by both nephrology and cardiology.
Plan to hold Lasix, candesartan and Jardiance
Monitor creatinine
-Creatinine continues to improve, discussed with nephrology who recommended to resume Lasix and SGLT2 and hold off losartan on discharge
12/20
Creatinine continues to improve, discussed with nephrology who recommended to resume Lasix and SGLT2 and hold off losartan on discharge
Chronic systolic congestive heart failure
No evidence of volume overload,
Holding diuretic
Daily weight.
Strict I's and O's.
Consulted cardiology.
Most recent echo 04/25/2024 shows :
Normal left ventricular size. Mild concentric left ventricular hypertrophy.
Severely reduced left ventricular systolic function. Global hypokinesis. LV
ejection fraction is 20-25% by visual estimation. Diastolic function
indeterminate due to atrial fibrillation.
Enlarged right ventricular size. Reduced right ventricular systolic function.
ICD wire seen in right ventricle.
Severely dilated atria.
4/
Resume Lasix
Persistent Atrial Fibrillation
Coreg for rate control with hold parameters for low blood pressure
Continue amiodarone
Continue Pradaxa (renally adjusted dose)
Hyperlipidemia
Continue atorvastatin
Anxiety / Depression
-Continue Lexapro
Obstructive Sleep Apnea
-Continue CPAP
Obesity
-Patient using Ozempic as outpatient
CODE STATUS: Full code
DVT prophylaxis: Pradaxa
Diet: Cardiac diet
Total time spent on today's encounter was 40 minutes which included time spent in counseling the patient/family regarding diagnosis and treatment plan as listed above, goals of care, and symptom management. Case was discussed with nursing staff,
specialists, and care coordinators/case management. All labs and imaging personally reviewed by me. Remainder the time spent in detailed review of previous records, lab data, imaging, and other medical provider documentation.
Anticipated Discharge: Today
Discharge Plan
-
Patient Disposition: Home (Routine Discharge)
Discharge Diagnosis/Procedures: Acute renal failure, chronic congestive heart failure
Condition: Good
Diet: 2 Gram Sodium
Activity: No restrictions
Driving Restrictions: As prior to admission
Blood Work: Repeat basic metabolic panel after 1 week
Specialty Instructions: Weigh Daily- Call MD for wt gain/loss 3 lbs overnight/5 lbs in 1 week
Referrals:
Subhash Miguel MD [Active] -
German Cleaning MD [Family Provider] -
Saloni Landin MD [Active] -
Additional Discharge Medication Instructions: Hold candesartan after seen by cardiology
Prescriptions:
New
(DME) Basic metabolic panel
See Rx Instructions .Route .MEDSUPPLY Qty: 1 0RF
Rx Instructions:
To be done after 1 week-fax report to cardiology/nephrology
Diagnosis: Acute renal failure
Continued
dabigatran etexilate [Pradaxa] 150 MG capsule
150 mg PO BID
irtjtdqzerl-rwlduecrc-sol C-Mn [Glucosamine Chondroitin MaxStr] 500-400 mg Capsule
1 cap PO BID
Jardiance 10 mg tablet
10 mg PO HS
zinc sulfate 50 mg zinc (220 mg) Tablet
50 mg PO DAILY
cholecalciferol (vitamin D3) 50 mcg (2,000 unit) Tablet
50 mcg PO DAILY
Ozempic 0.25 mg or 0.5 mg (2 mg/3 mL) Pen Injector
0.5 mg SC MO
amiodarone 100 mg Tablet
100 mg PO DAILY
atorvastatin 40 mg tablet
40 mg PO DAILY
furosemide 40 mg tablet
80 mg PO HS
carvedilol 25 mg Tablet
25 mg PO BID Qty: 1 0RF
Rx Instructions:
dose decreased on this admission
polyethylene glycol 3350 [HealthyLax] 17 gram Powder In Packet
17 g PO DAILYPRN PRN (Reason: Constipation) Qty: 14 0RF
furosemide 40 mg Tablet
40 mg PO DAILY
oxycodone-acetaminophen 5-325 mg Tablet
1 tab PO Q6HPRN PRN (Reason: severe pain)
acetaminophen [Tylenol Extra Strength] 500 mg tablet
1,000 mg PO Q6HPRN PRN (Reason: mild pain)
escitalopram oxalate 20 mg tablet
10 mg PO DAILY
Held
candesartan 8 mg Tablet
8 mg PO DAILY Qty: 90 3RF
Hold Instructions: Until seen by cardiology
Rx Instructions:
hold if sbp<110
Discharge Orders:
Discharge Patient (As Directed); Ordered 12/20/24
Ordered By: Sana Decker
Discharge Date and Time
Print Language: SETSWANA
--- NOTE | 2024-12-20 10:49 | W.PN.CARDCBS ---
Today's Communication / Plan
-
Stable for discharge home
Outpatient cardiac follow-up arranged
Impression / Plan
-
PCP: Leonides Cleaning MD
CDY: Juan Ramon Owens MD
Impression:
Admitted with symptomatic hypotension and CAMILA 12/18/24
Recent admission for acute HF 11/23/24 until 11/24/24
CAMILA
Possible acute HFrEF
Chronic systolic HFrEF, 20-25% by echo 04/25/24
Non ischemic cardiomyopathy
Permanent Afib
Brainstem stroke April 2024
Chronic OAC with Pradaxa
s/p Medtronic Bi-V/ICD 06/09/23
Persistent AFib
multiple prior PVIs (2010, 2012, 2018, 2020)
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
s/p CV 10/2022, 07/15/2023
Failed Tikosyn (unable to maintain sinus rhythm)
chronic amiodarone for adjunct rate control
HTN
Anxiety
VERNON
Thyroid CA, s/p partial thyroidectomy
History of mechanical fall resulting in s/p Left intertrochanteric hip fracture open reduction and internal fixation with cephalomedullary nail 05/03/2024
Normal pressure hydrocephalus status post MACHINE ICER shunt September 2024 at [facility]
Echo 05/20/2023: moderately reduced LV systolic function with ejection fraction 30 to 35%.� Mild concentric LV.� Normal RV size.� Biatrial dilatation with severely enlarged left atrium and severely abnormal left atrial volume index.� Mild MR,
pulmonary artery pressure 55 mmHg
Echo 08/09/2023: EF 30 to 35%, global hypokinesis, ICD wire in RV, normal pericardium
ECHO 04/25/24: EF 20 to 25%, global hypokinesis, mild concentric LVH, enlarged RV size and reduced RV function, severely dilated atria, MAC, moderate MR, mild TR, PAP 40 to 45 mmHg, IVC dilated and does not collapse, interatrial septum intact with no
evidence of shunt
Plan:
Symptomatic hypotension after outpatient intensification of diuresis with a dose of metolazone 2.5 after dietary salt indiscretion with SHEELA, Cr on admission 3.4
Acute renal insufficiency
-Baseline creatinine is generally in the 0.9-1.1 range.
-Patient was given 500 mL IVF bolus in the ER overnight and his outpatient dose of Lasix 40 mg AM and 80 mg PM remains on hold. Cre was 3.4, but now improved to 1.5
-Appreciate nephrology input
-Outpatient dose of candesartan 8 mg daily is on hold
-Outpatient dose of Jardiance 10 mg daily is on hold
-Outpatient Lasix held
-Fortunately, renal function has improved; discussed plan with nephrology. Will resume Lasix at usual outpatient dose, 40 mg in the morning and 80 mg in the evening which was confirmed by his over the phone. Will resume Jardiance 10 mg daily.
Will continue to hold candesartan at this time. Repeat basic metabolic profile in 1 week.
-No further metolazone
-Patient should have outpatient follow-up with cardiology which will be arranged as well as nephrology.
History of heart failure reduced ejection fraction
-Currently appears relatively euvolemic
-We discussed the importance of salt restriction and heart failure monitoring
-Will resume patient's outpatient Lasix dose which was confirmed with his : 40 mg in the morning, 80 mg in the evening per his choice since he works during the day.
Permanent A-fib with 100% burden despite previous PVI, convergent maze, AAD and prior cardioversions; asymptomatic
-ECG reviewed by me looks V paced with underlying A-fib
-I interrogated the patient's device this morning and he has known permanent A-fib with 100% burden; battery life greater than 9 years
-CXR reviewed by me shows a small left pleural effusion without obvious acute HF
-Outpatient dose of Coreg 25 mg BID has been continued
-Continue Pradaxa 150 mg twice daily
-Continue outpatient amiodarone 100 mg daily
Discussed with nephrology and hospitalist. Patient may be discharged home with close outpatient follow-up
Progress Note - Cleaner And Trimmer
Subjective
Date of Service: December 20, 2024
Patient was seen and examined. Offers no complaints. No lower extremity edema or shortness of breath. No chest pain or pressure. No palpitations. Voiding well
Objective
Labs:
12/20/24 06:13
12/20/24 06:13
Labs
Hgb 14.3 g/dL (13.0-18.0) 12/20/24 06:13
Hct 41.2 % (39.0-52.0) 12/20/24 06:13
Plt Count 293 10^3/uL (130-400) 12/20/24 06:13
Sodium 140 mmol/L (135-145) 12/20/24 06:13
Potassium 3.6 mmol/L (3.5-5.1) 12/20/24 06:13
BUN 55 mg/dl (9-20) H 12/20/24 06:13
Creatinine 1.5 mg/dL (0.7-1.3) H 12/20/24 06:13
Glucose 85 mg/dl (70-99) 12/20/24 06:13
Troponins
12/18/24
19:30
Troponin I 0.022
Vital Signs and I&O:
Vital Signs
Temp Pulse Resp BP Pulse Ox
97.9 F 83 16 109/72 93
12/20/24 07:15 12/20/24 07:15 12/20/24 07:15 12/20/24 07:15 12/20/24 07:15
Vital Signs
Temp Pulse Resp BP Pulse Ox
97.9 F 83 16 109/72 93
12/20/24 07:15 12/20/24 07:15 12/20/24 07:15 12/20/24 07:15 12/20/24 07:15
Intake & Output
12/18/24 12/19/24 12/20/24 12/21/24
06:59 06:59 06:59 06:59
Intake Total 1280 / 1760 480 / 480
Output Total 1200 / 1999 800 / 800
Balance 80 / -240 -320 / -320
Physical Exam
Physical Exam
GEN: No distress, awake, Ox3
HEENT: supple, anicteric, mmm
LUNGS: CTA, no wheezes/rales
CV: Reg, S1/S2, 1/6 syst murmur
ABD: soft, BS+, NT/ND
EXT: No edema, clubbing or cyanosis
NEURO: Gross non-focal
SKIN: No rash, warm, dry, pink
[2024-12-20 11:10] VITALS: BP 99/63
--- NOTE | 2024-12-20 11:12 | CM ---
Patient discharge tday
IMM explained & signed.
tt Hospitalist for outpatient PT script to resume.
PLAN: Home, Outpatient PT
to transport
== END 2024-12-20 15:42 | disposition home or self-care (01) | DRG 683 ==
LOC: 3 WEST ACU 21:45
PROVIDERS: Emergency Medicine; Physician Assistant Medical; ADMITTING PHYSICIAN Internal Medicine; ATTENDING PHYSICIAN General Practice; CONSULT PHYSICIAN Internal Medicine Cardiovascular Disease; EMERGENCY PHYSICIAN Emergency Medicine; FAMILY PHYSICIAN Internal Medicine Geriatric Medicine; OTHER PHYSICIAN Specialist
DX: N17.9 Acute kidney failure, unspecified (principal); G91.9 Hydrocephalus, unspecified; I48.21 Permanent atrial fibrillation; I50.22 Chronic systolic (congestive) heart failure; I42.8 Other cardiomyopathies; I11.0 Hypertensive heart disease with heart failure; G47.33 Obstructive sleep apnea (adult) (pediatric); F41.9 Anxiety disorder, unspecified; F32.A Depression, unspecified; E66.9 Obesity, unspecified; E89.0 Postprocedural hypothyroidism; I95.2 Hypotension due to drugs; T50.2X5A Adverse effect of carbonic-anhydrase inhibitors, benzothiadiazides and other diuretics, initial encounter; I25.10 Atherosclerotic heart disease of native coronary artery without angina pectoris; E11.9 Type 2 diabetes mellitus without complications; E78.00 Pure hypercholesterolemia, unspecified; E86.0 Dehydration; E86.1 Hypovolemia; Z79.84 Long term (current) use of oral hypoglycemic drugs; Z79.85 Long-term (current) use of injectable non-insulin antidiabetic drugs; Z85.850 Personal history of malignant neoplasm of thyroid; Z79.899 Other long term (current) drug therapy; Z79.02 Long term (current) use of antithrombotics/antiplatelets; Z86.73 Personal history of transient ischemic attack (TIA), and cerebral infarction without residual deficits; Z87.891 Personal history of nicotine dependence; Z95.810 Presence of automatic (implantable) cardiac defibrillator; Z98.2 Presence of cerebrospinal fluid drainage device; Z68.27 Body mass index [BMI] 27.0-27.9, adult
CPT/HCPCS: 71046; 80048; 80053; 81003; 81015; 83735; 84443; 84484; 85025; 85027; 93005; 93306; 94660; 96360; 96361; 99285

== ENCOUNTER 2025-01-10 06:43 | Outpatient (RCR) | payer BC, MEDICARE, SELFPAY | END 2025-01-10 23:59 | disposition home or self-care (01) | LOC: RPT 06:43 | PROVIDERS: ATTENDING PHYSICIAN Physician Assistant Medical; FAMILY PHYSICIAN Internal Medicine Geriatric Medicine | DX: G91.2 (Idiopathic) normal pressure hydrocephalus (principal); M25.552 Pain in left hip; M62.81 Muscle weakness (generalized); R26.2 Difficulty in walking, not elsewhere classified; Z73.6 Limitation of activities due to disability; Z98.2 Presence of cerebrospinal fluid drainage device | CPT/HCPCS: 97110; 97112; 97116; 97530; 97535 ==

== ENCOUNTER 2025-03-11 19:42 | Emergency (ER) | payer BC, MEDICARE, SELFPAY ==
[2025-03-11 19:52] VITALS: BP 140/97
[2025-03-11 20:10] LABS: % Basophils 0.6 % (0-2); % Immature Granulocytes 0.3 % (0-0.5); % Lymphocytes 17.4 % (20.5-51.1); % Monocytes 9.7 % (1.7-9.3); Absolute Basophils 0.1 10^3/uL (0-0.2); Absolute Eosinophils 0.1 10^3/uL (0-0.7); Absolute Lymphocytes 1.9 10^3/uL (1.2-3.4); Absolute Neutrophils 7.6 10^3/uL (1.4-6.5); Hemoglobin 15.7 g/dL (13.0-18.0); Mean Corp Hgb Conc. 34.1 g/dL (33.0-37.0); Mean Corpuscular Hgb 29.9 pg (27.0-31.0); Mean Corpuscular Volume 87.6 fL (80.0-94.0); Mean Platelet Volume 9.1 fL (7.4-10.4); Nucleated Red Blood Cells % 0 % (-); Platelet Count 352 10^3/uL (130-400); Red Blood Cell Count 5.25 10^6/uL (4.70-6.10); Red Cell Dist. Width 15.4 % (11.5-14.5); White Blood Cell Count 10.7 10^3/uL (4.8-10.8)
[2025-03-11 20:38] LABS: ALT (SGPT) 21 U/L (0-50); AST (SGOT) 20 U/L (17-59); Albumin 4.3 g/dl (3.5-5.0); Alkaline Phosphatase 94 U/L (38-126); Blood Urea Nitrogen 22 mg/dl (9-20); Calcium 9.9 mg/dl (8.4-10.2); Carbon Dioxide 28 mmol/L (22-30); Chloride 105 mmol/L (98-107); Glucose 107 mg/dl (70-99); Sodium 140 mmol/L (135-145); Total Bilirubin 2.7 mg/dl (0.2-1.3); Total Protein 7.6 g/dl (6.3-8.2); eGFR > 60.00
[2025-03-11 20:39] LABS: NT-proBNP 7780 pg/ml; Troponin I < 0.012 ng/ml
[2025-03-11 23:00] VITALS: BP 96/73
[2025-03-12 00:39] VITALS: BP 131/100
[2025-03-12] MEDS: LASIX 60 MG IV (01:04)
[2025-03-12 01:05] VITALS: BP 134/102
[2025-03-12 01:10] LABS: Troponin I 0.018 ng/ml
[2025-03-12 01:28] LABS: Urine Albumin Negative (Neg - Trace); Urine Bilirubin Negative (Negative); Urine Character Clear (Clear); Urine Color Yellow; Urine Glucose 3+ (Negative); Urine Ketone Negative (Negative); Urine Leukocyte Negative (Negative); Urine Nitrite Negative (Negative); Urine Occult Blood Negative (Negative); Urine Urobilinogen Negative (Neg - 1+)
--- NOTE | 2025-03-12 01:42 | ED.GENMED ---
History of Present Illness
General
Chief Complaint: Chest Pain
Source: patient and previous hospital records (Previous hospitalization November of this year for treatment of acute exacerbation of CHF. Hospitalization December 18 to December 20 of this year for treatment of hypotension, acute kidney injury related to
dehydration.)
Exam Limitations: none
Time Seen by Provider: 03/11/25 23:59
Nursing documentation reviewed up to this point in time: agreed with
History of Present Illness
History of Present Illness:
This is a 75-year-old gentleman who has history of chronic systolic CHF, permanent A-fib, chronically maintained on Pradaxa, history of stroke, AICD, history of normal pressure hydrocephalus status post [employer] shunt at [place] September 2024.
Previously hospitalized here early November for treatment of acute CHF. Then hospitalized early December for treatment of hypotension, acute kidney injury requiring gentle IV hydration.
Had been maintained on Lasix 40 mg in the a.m., 80 mg in the evening but since most recent hospitalization in December, Lasix resumed upon discharge at only 80 mg in the evening.
He complains of some gradual weight gain perhaps 8 to 9 pounds over the past 4 to 5 weeks and then 3 pounds weight gain over the past 2 to 3 days. He admits to occasional dietary indiscretion, admits to occasional consumption of soda. He denies
added salt nor high sodium foods.
Over the past several days he has had some increased dyspnea on exertion, more so over the past 24 hours and today noticed some abdominal bloating, early satiety which is similar symptoms with previous episodes of CHF. He denies paroxysmal
nocturnal dyspnea. He denies palpitations, denies dizziness or lightheadedness. He has had mild chest discomfort today which is also similar with previous episodes of CHF. He has not had a cough, no fever no chills. No leg pain or swelling. He
does travel by car on a regular basis including to and from the [facility] recently and several weeks ago to and from [place].
He took his usual dose of Lasix 80 mg this evening and admits that he has had urinary frequency and currently feeling improved since arrival to the ED. No further chest pain.
He states over the past 5 to 6 weeks he has had intermittent right sided abdominal pain, sharp, stabbing in nature, worse with movement. No difficulty moving his bowels nor bladder. No flank pain.
Past History
Past History
ED Past Medical History: Arrthythmia (afib), Cancer (thyroid), CHF (EF 20 to 25% by echo April 2024), CVA (Brainstem stroke April 2024), HTN, Valvular disease (MVR), Psychiatric (anxiey), Other (TIA, OA, kidney stones; obstructive sleep apnea) and
Other (Normal pressure hydrocephalus)
ED Past Surgical History: Brain ([employer] shunt September 2024), Cardiac (AICD; multiple prior PVI's), Orthopedic (Left hip fracture repair April 2024) and Other (Thyroidectomy)
Social History
Tobacco: Non-smoker
Alcohol: None
Drug: None
Personal:
Living: with family
Employment: Employed
Family History
Family History: Other (Noncontributory)
Phy Exam
Physical Exam
Physical Exam:
GENERAL: 75-year-old gentleman appears his stated age, awake and alert, pleasant, appears in no acute distress. Speaking in full sentences, even while lying supine.
EYE: pupils equal and reactive. anicteric
NECK: Supple, nontender, no meningismus, no significant adenopathy.
ENT: oral mucosa is moist. No rhinorrhea.
CARDIAC: Regular rate and rhythm. 2/6 holosystolic murmur left sternal border
LUNGS: no acute respiratory distress, scant Rales bibasilar, no wheezing or rhonchi.
ABDOMEN: Rotund, soft, nondistended, mild tenderness right lower quadrant with deep palpation only, no r/g, no cvat. normoactive BS.
NEUROLOGICAL: Alert and oriented x3, no focal neuro deficits.
SKIN: Warm and dry, normal color, skin intact. No rash.
MUSCULOSKELETAL: No C/C/E. peripheral pulses are full and equal b/l. No palpable tenderness.
PSYCH: Normal and appropriate interaction.
Scores
Heart Score for Chest Pain Patients
STEMI patient?: No
History: Slightly or Non-Suspicious
ECG: Nonspecific Repolarization
Age: >/= 65 years
Risk Factors: 1 or 2 Risk Factors
Troponin: </= Normal Limit
Heart Score for Chest Pain Patients: 4
Heart Score Risk: 20.3% MACE over next 6 weeks
Course
Orders/Labs/Results
Orders:
Orders
03/11/25 19:43
ECG [Electrocardiogram (*1)] Urgent
Reason for Study: Heart Failure, Left
EKG- Treatment ONCE
03/11/25 20:00
Complete Blood Count/With Diff Urgent
Comprehensive Metabolic Panel Urgent
NT-proBNP Urgent
Troponin I Urgent
03/12/25 00:17
CR Chest - 2 Views Urgent
Comment:
Reason For Exam: SOB
03/12/25 00:28
Troponin I Urgent
03/12/25 00:34
Furosemide [Lasix] 60 mg IV NOW STA
03/12/25 00:38
CT Abd/pel Without Iv Or Oral Urgent
Comment:
Reason For Exam: intermittent RLQ pain x few weeks
03/12/25 01:13
Urinalysis Reflex To Culture Urgent
Date Specimen was Collected: 03/12/25
Time Specimen was Collected: 01:04
03/12/25 03:16
3 Minute Walk Test [3 Minute Walk Test- Treatment] ONCE
Abnormal Lab Results
03/11/25 03/12/25
20:00 01:13
RDW 15.4 H %
(11.5-14.5)
Absolute Neuts (auto) 7.6 H 10^3/uL
(1.4-6.5)
Absolute Monos (auto) 1.0 H 10^3/uL
(0.1-0.6)
Lymphocytes % 17.4 L %
(20.5-51.1)
Monocytes % 9.7 H %
(1.7-9.3)
BUN 22 H mg/dl
(9-20)
Glucose 107 H mg/dl
(70-99)
Total Bilirubin 2.7 H mg/dl
(0.2-1.3)
Urine Glucose 3+ A
(Negative)
03/11/25 20:00
03/11/25 20:00
Vital Signs
Initial and Last Documented VS:
Initial Vital Signs
Temp Pulse Resp BP Pulse Ox
97.8 F 103 18 140/97 95
03/11/25 19:52 03/11/25 19:52 03/11/25 19:52 03/11/25 19:52 03/11/25 19:52
Last Documented Vital Signs
Temp Pulse Resp BP Pulse Ox
97.8 F 96 19 138/99 92
03/11/25 19:52 03/12/25 04:01 03/12/25 04:01 03/12/25 03:40 03/12/25 04:01
MDM/Problems Addressed
Differential Diagnosis Includes:
Concern for acute exacerbation of CHF, CAD, electrolyte abnormality, arrhythmia.
Intermittent right lower quadrant pain over the past several weeks, appendicitis, colitis, diverticulitis are unlikely. Concern for potential complication with abdominal portion of [employer] shunt, constipation, renal colic, UTI.
Labs thus far revealing creatinine of 1.2, at patient's baseline.
BNP is elevated at 7780 which has trended up from previous, concerning for an element of CHF.
Bilirubin elevated at 2.7, similar to previous with normal LFTs.
Troponin is normal. Will plan to repeat.
Will check chest x-ray and due to intermittent right lower quadrant pain, will check CT abdomen pelvis. Will also check urinalysis.
Due to elevated BNP, concern for exacerbation of CHF will give an IV dose of Lasix now.
Initial blood pressure 140/97, during my initial evaluation blood pressure 148/110 with armband. Will reassess. 1 isolated blood pressure reported at 96/73 which I suspect is never erroneous reading.
Repeat blood pressure now 130/100.
EKG shows ventricular paced rhythm, similar to previous.
Patient has history of extensive travel by car but compliant with Pradaxa. No leg pain or swelling thus DVT/PE are unlikely.
Chronic conditions affecting care: HTN, Cardiomyopathy, Arrhythmia (Chronic atrial fibrillation), Neurological disorder and Kidney disease
*Radiology
Radiology exam reviewed: preliminary read by ED provider (Chest x-ray shows moderate cardiomegaly, mild to moderate interstitial fullness concerning for CHF somewhat more prominent compared to previous film.)
*Pulse Oximetry
SaO2: 93
Oxygen Mode of Delivery: Room air
Patient hypoxic: no
*EKG
Interpreted by ED Provider?: Yes
Comparison EKG: no changes (Unchanged from previous December 2024 see if her heart rate has increased from 95 to now 106)
Rate: tachycardiac
Rhythm: ventricular paced
*Block Layer Interpretation
Rate: normal
Interpretation: normal
Rhythm: ventricular paced
*Critical Care Note
Total Time (30-74mins, 75-104mins- exclusive of procedures): Not Applicable
Update Note
Update Note:
04:00
Repeat troponin remains within normal limits.
Patient has been diuresing well.
CAT scan shows no acute abnormality within the abdomen or pelvis. There is no bowel obstruction. Questionable sludge within the gallbladder. Normal appendix. A cystic structure within the left upper quadrant appears similar to previous.
Continues to appear comfortable. Denies chest pain or shortness of breath and has done well with 3-minute walk test without dyspnea nor chest pain nor hypoxia.
Will discharge to home with recommendations he continue his usual 80 mg Lasix once daily.
Prompt follow-up with cardiology, Dr. Owens and will refer to our heart failure/cardiology hotline.
Return precautions discussed.
ED Attending Note
-
Portions of this chart may have been created with voice recognition software.� Occasional wrong word or��sound alike� substitutions may have occurred due to the inherent limitations of voice recognition software.
Discharge Plan
Departure
Patient Disposition: Home (Routine Discharge)
Date of Disposition: 03/12/25
Time of Disposition: 04:05
Patient with high blood pressure during this ER visit?: No
Condition: Good
Discharge Problem:
mild exacerbation of CHF
Instructions: *[facility] Heart Failure Instructions
Prescriptions:
No Action
dabigatran etexilate [Pradaxa] 150 MG capsule
150 mg PO BID
[id number] C-Mn [Glucosamine Chondroitin MaxStr] 500-400 mg Capsule
1 cap PO BID
Jardiance 10 mg tablet
10 mg PO HS
zinc sulfate 50 mg zinc (220 mg) Tablet
50 mg PO DAILY
cholecalciferol (vitamin D3) 50 mcg (2,000 unit) Tablet
50 mcg PO DAILY
Ozempic 0.25 mg or 0.5 mg (2 mg/3 mL) Pen Injector
0.5 mg SC MO
amiodarone 100 mg Tablet
100 mg PO DAILY
atorvastatin 40 mg tablet
40 mg PO DAILY
furosemide 40 mg tablet
80 mg PO HS
carvedilol 25 mg Tablet
25 mg PO BID Qty: 1 0RF
Rx Instructions:
dose decreased on this admission
polyethylene glycol 3350 [HealthyLax] 17 gram Powder In Packet
17 g PO DAILYPRN PRN (Reason: Constipation) Qty: 14 0RF
candesartan 8 mg Tablet
8 mg PO DAILY Qty: 90 3RF
Rx Instructions:
hold if sbp<110
furosemide 40 mg Tablet
40 mg PO DAILY
oxycodone-acetaminophen 5-325 mg Tablet
1 tab PO Q6HPRN PRN (Reason: severe pain)
acetaminophen [Tylenol Extra Strength] 500 mg tablet
1,000 mg PO Q6HPRN PRN (Reason: mild pain)
escitalopram oxalate 20 mg tablet
10 mg PO DAILY
(DME) Basic metabolic panel
See Rx Instructions .Route .MEDSUPPLY Qty: 1 0RF
Rx Instructions:
To be done after 1 week-fax report to cardiology/nephrology
Diagnosis: Acute renal failure
(DME) Outpatient physical therapy
See Rx Instructions .Route .MEDSUPPLY Qty: 1 0RF
Rx Instructions:
Outpatient physical therapy
3 times weakly
Diagnosis:
Ambulatory Dysfunction.
Referrals:
Juan Ramon Owens MD [Active, Cardiology] - Next open appointment
German Cleaning MD [Family Provider, Internal Medicine] - Call in 1-3 days for appt
Interventions
Interventions:
*Risk Screen - Suicide Last Done: 03/12/25 04:16
*General Assessment Last Done: 03/11/25 19:53
*Neglect/Abuse Screening Last Done: 03/11/25 19:53
*ED- Fall Risk Assessment Last Done: 03/11/25 22:19
*ED COVID-19 Vaccine History Last Done: 03/11/25 22:19
*Nursing Disposition Last Done: 03/12/25 04:16
ED- Cardiac Assessment Last Done: 03/11/25 22:19
Discharge Date and Time
Discharge Date/Time: 03/12/25 04:16
Print Language: GEORGIAN
[2025-03-12 02:00] VITALS: BP 122/87
[2025-03-12 03:00] VITALS: BP 137/97
[2025-03-12 03:39] VITALS: BP 138/99
[2025-03-12 03:40] VITALS: BP 138/99
== END 2025-03-12 04:16 | disposition home or self-care (01) ==
LOC: EMR 19:42
PROVIDERS: Emergency Medicine; EMERGENCY PHYSICIAN Emergency Medicine; FAMILY PHYSICIAN Internal Medicine Geriatric Medicine
DX: I11.0 Hypertensive heart disease with heart failure (principal); I50.22 Chronic systolic (congestive) heart failure; I48.91 Unspecified atrial fibrillation; G47.33 Obstructive sleep apnea (adult) (pediatric); Z79.01 Long term (current) use of anticoagulants; Z86.73 Personal history of transient ischemic attack (TIA), and cerebral infarction without residual deficits; Z79.899 Other long term (current) drug therapy
CPT/HCPCS: 99284; 96374; 71046; 74176; 80053; 81003; 83880; 84484; 85025; 93005